=== PATIENT | female | born 1965 | race Caucasian/White ===

== ENCOUNTER → 2016-05-11 | Outpatient (CLI) | payer OTHER ==
[~2016-05-11] MED LIST: /ARTH50TA PO; /OMEP10CA OR; ALBUTEROL INH; AMBI10TA OR; AMBI12.52 PO; AMBI5TAB PO; AMIT75TA2 OR; ARTHROTEC OR; ARTHROTEC PO; ARTHTAB4 PO; AVINZA OR; BACL10TA2 PO; BENA25CA PO; BENA25CA2 PO; CLARITAN D OR; COMBVENT INH; FAMO40TA3 PO; GABA250S PO; HYDR-3363 PO; HYDR-3719 PO; HYDR25TA6 OR; HYDR7.5T38 PO; IMIT4KIT2 SC; IMIT6INJ IJ; IMIT6INJ IM; LIDO5DIS; LIDO5DIS EXT; LYRI150C OR; MORP1CAP PO; MORP30TASA PO; MS C60TA2 PO; MULTCAP PO; NEUR300C OR; NEUR300C PO; NORCO 5/325MG TABLET (BULK) As Ordered ONE; OXYC-208 PO; OXYC30TA84 PO; PEPC20TA2; PRIL20CA OR; ROBA750T4 PO; SKEL800T5; SKEL800T5 OR; SPIRIVA INHALER INH; SUMA25TA3 PO; TIZA4TAB3 PO; VARE05TA; VARE1TA OR; VARE1TA PO; VICO5TAB OR; VICO5TAB PO; VICODINES TAB OR; VOLT1GEL EXT; ZANT150T OR; [UNRECOGNIZED DRUG - CODE] PO; [UNRECOGNIZED DRUG - CODE] PO
--- NOTE | 2016-05-12 00:29 | ECWPNPC ---
PATIENT NAME: DAGO ASH : 1965 GENDER: FEMALE VISIT DATE: 05/11/2016 DISCHARGE DATE: 05/11/16927 VISIT LOCKED DATE TIME: PHYSICIAN: SHIRLEY LILLY RESOURCE: SHIRLEY LILLY REASON FOR APPOINTMENT 1. WC, BACK HISTORY OF PRESENT ILLNESS HISTORY OF PRESENT ILLNESS: PAIN THE PATIENT DESCRIBES THE PAIN... THE PATIENT DESCRIBES THE PAIN... THE PATIENT DESCRIBES THE PAIN... HERE FOR 3MOS F/U. RATING PAIN VAS 7/10.PAIN IS LOCATED ACROSS LOW BACK AND RADIATES DOWN LEFT LEG.FINDS MEDICATION EFFECTIVE AT REDUCING PAIN AND KEEPING HER COMFORTABLE.DENIES SIDE EFFECTS.DESCRIBES PAIN ASCONSTANT LBP WITH INTERMITTENT SHOOTING LEFT LEG PAIN. FALL RISK SCREENING: SCREENING :NO FALLS IN THE PAST YEAR CURRENT MEDICATIONS TAKING ZOLPIDEM TARTRATE 10 MG TABLET 1 TABLET AT BEDTIME ORALLY ONCE A DAY, MDD 1 TAKING LYRICA 150 MG CAPSULE 1 CAPSULE ORALLY Q8H MDD3 TAKING DICLOFENAC-MISOPROSTOL 75-0.2 MG TABLET DELAYED RELEASE 1 TABLET ORALLY TWICE A DAY TAKING AMITRIPTYLINE HCL 75 MG TABLET 1 TABLET ORALLY QHS TAKING METHOCARBAMOL 750 MG TABLET 1 TABLET ORALLY EVERY 8 HRS TAKING HYDROCODONE-ACETAMINOPHEN 10-325 MG TABLET 1 ORALLY Q6H MDD4 TAKING MORPHINE SULFATE ER 60 MG TABLET EXTENDED RELEASE 1 TABLET ORALLY 1 QD MDD1 NOT-TAKING MS CONTIN 60 MG TABLET EXTENDED RELEASE 1 TABLET ORALLY DAILY MDD1 NOT-TAKING MS CONTIN 60 MG TABLET EXTENDED RELEASE 1 TABLET ORALLY DAILY MDD1 NOT-TAKING MS CONTIN 60 MG TABLET EXTENDED RELEASE 1 TABLET ORALLY QD MDD1 NOT-TAKING AMBIEN 10 MG TABLET 1 TABLET AT BEDTIME NEEDED ORALLY ONCE A DAY PRN MDD1 NOT-TAKING MS CONTIN 60 MG TABLET EXTENDED RELEASE 1 TABLET ORALLY DAILY MDD1 NOT-TAKING MS CONTIN 60 MG TABLET EXTENDED RELEASE 1 TABLET ORALLY ONE DAILY MDD1 MEDICATION LIST REVIEWED AND RECONCILED WITH THE PATIENT PAST MEDICAL HISTORY SEIZURE MIGRAINE FIBROMYALGIA ALLERGIES KEFLEX: RASH: ALLERGY NYSTATIN: RASH: ALLERGY MYSOLINE: RASH: ALLERGY LATEX (FOR ALLERGY USE ONLY): RASH: ALLERGY BEE STINGS: ANAPHYLAXIS: ALLERGY ZOLOFT: RASH: ALLERGY SOCIAL HISTORY TOBACCO USE ARE YOU A:CURRENT SMOKER LEARNING BARRIERS / SPECIAL NEEDS ORIENTED TO PLAN OF CARE: PATIENT, PAIN MANAGEMENT PATIENT, ORIENTED TO PLAN OF CARE: PATIENT, PAIN MANAGEMENT PATIENT. NEW PATIENT PAIN DIARY TODAY'S VISITNOTES FROM 0-10, WHAT LEVEL IS YOUR PAIN TODAY?0 PAIN CLINIC PFS, CLERGY, PUBLIC HEALTH REFERRALS PFS REFERRAL NEEDED?NO CLERGY REFERRAL NEEDED?NO PUBLIC HEALTH REFERRAL NEEDED?NO WAS THE PROVIDER NOTIFIED OF ANY PERTINENT INFO?NO PFS REFERRAL NEEDED?NO CLERGY REFERRAL NEEDED?NO PUBLIC HEALTH REFERRAL NEEDED?NO WAS THE PROVIDER NOTIFIED OF ANY PERTINENT INFO?NO REVIEW OF SYSTEMS CONSTITUTIONAL: ANY CHANGE IN YOUR MEDICAL CONDITION? NO . CHILLS NO . FEVER NO . INFECTION: DO YOU HAVE NEW INFECTIONS? NO . DO YOU HAVE HISTORY OF MRSA? NO . MUSCULOSKELETAL: ANY NEW PATTERNS OF PAIN OR NUMBNESS? NO . GASTROENTEROLOGY: ANY NEW CHANGE IN BOWEL CONTROL? NO . GENITOURINARY: ANY NEW CHANGE IN BLADDER CONTROL? NO . IS THERE A CHANCE YOU COULD BE ? NO . HEMATOLOGY/LYMPH: DO YOU TAKE ANY BLOOD THINNERS? (FOR EXAMPLE- COUMADIN, PLAVIX, AGGRENOX, PLATEL, PRADAXA, OR XARELTO) NO . WHEN WAS YOUR LAST DOSE? DATE: TIME: . NEUROLOGY: HAVE YOU FALLEN IN THE PAST 6 MONTHS? NO . ANY NEW EXTREMITY NUMBNESS OR WEAKNESS? NO . CARDIOLOGY: DO YOU HAVE A PACEMAKER OR DEFIBRILLATOR? NO . RESPIRATORY: HAVE YOU BEEN SICK IN THE PAST WEEK? NO . FEVER NO . FLU LIKE SYMPTOMS? NO . COUGH NO . INTEGUMENTARY: DO YOU HAVE ANY RASHES OR OPEN SORES? NO . ALLERGIC/IMMUNO: ARE YOU ALLERGIC TO SHELLFISH OR IV DYE? NO . ANY NEW ALLERGIES? NO . PSYCHIATRIC: DO YOU HAVE THOUGHTS OF HURTING YOURSELF OR SOMEONE ELSE? NO . ARE YOU ABUSED, NEGLECTED, OR IN AN UNSAFE ENVIRONMENT? NO . ENDOCRINOLOGY: ARE YOU DIABETIC? NO . OTHER: DO YOU NEED ANY PRESCRIPTIONS? YES . IF YES, PLEASE LIST: MORPHINE ER AND HYDROCODONE . ANY NEW PROBLEMS WITH YOUR MEDICATIONS? NO . WHEN DID YOU LAST EAT? ____ . WHEN DID YOU LAST DRINK? ____ . WHAT DID YOU LAST DRINK? ____ . NAME OF PERSON DRIVING YOU HOME? ____ . DO YOU HAVE ANY OTHER QUESTIONS OR CONCERNS NO . REVIEWED BY: PROVIDER: SHIRLEY HUBBARD . VITAL SIGNS WT 177 LBS, HT 53 IN, BMI 44.30 INDEX, BP 164/100 MM HG, HR 66 /MIN, RR 18 /MIN, TEMP 98.0 F, OXYGEN SAT % 100%, REVIEWED BY: [id number]. EXAMINATION GENERAL EXAMINATION: LUNGS:LUNG SOUNDS ARE CLEAR. HEART:HEART RATE REGULAR. MUSCULOSKELETAL:*, MUSCLE STRENGTH TESTING 5/5 BILATERAL, PALPATION: POSITIVE FOR PAIN OVER L/S SPINE,.+ FOR PAIN OVER L/S PARSPINALS, TRIGGER POINTS:, ELICITED WITH PALPATION OVER LUMBAR PARAVERTEBRAL MUSCLES . RESTRICTION OF ROM IN THIS AREA. ASSESSMENTS PROTRUSION OF INTERVERTEBRAL DISC OF LUMBOSACRAL REGION - M51.27 (PRIMARY) CHRONIC PRESCRIPTION OPIATE USE - Z79.891 TREATMENT PROTRUSION OF INTERVERTEBRAL DISC OF LUMBOSACRAL REGION CONTINUE ZOLPIDEM TARTRATE TABLET, 10 MG, 1 TABLET AT BEDTIME, ORALLY, ONCE A DAY, MDD 1 CONTINUE LYRICA CAPSULE, 150 MG, 1 CAPSULE, ORALLY, Q8H MDD3 CONTINUE DICLOFENAC-MISOPROSTOL TABLET DELAYED RELEASE, 75-0.2 MG, 1 TABLET, ORALLY, TWICE A DAY REFILL AMITRIPTYLINE HCL TABLET, 75 MG, 1 TABLET, ORALLY, QHS, 30 DAY(S), 30, REFILLS 5 CONTINUE METHOCARBAMOL TABLET, 750 MG, 1 TABLET, ORALLY, EVERY 8 HRS REFILL HYDROCODONE-ACETAMINOPHEN TABLET, 10-325 MG, 1, ORALLY, Q6H MDD4, 1 MONTH, 120, REFILLS 0 REFILL MORPHINE SULFATE ER TABLET EXTENDED RELEASE, 60 MG, 1 TABLET, ORALLY, 1 QD MDD1, 1 MONTH, 30, REFILLS 0 PROCEDURES PN WORKMANS' COMP OPINION IN YOUR OPINION, WAS THE INCIDENT THAT THE PATIENT DESCRIBED THE COMPETENT MEDICAL CAUSE OF THIS INJURY/ILLNESS? YES ARE THE PATIENT'S COMPLAINTS CONSISTENT WITH HIS/HER HISTORY OF THE INJURY/ILLNESS? YES IS THE PATIENT'S HISTORY OF THE INJURY/ILLNESS CONSISTENT WITH YOUR OBJECTIVE FINDING? YES WHAT IS THE PERCENTAGE OF TEMPORARY IMPAIRMENT? MODERATE TO MARKED = 66.7% IS THE PATIENT WORKING? NO DOCTOR ON SITE: HOWARD VENEGAS MD PROCEDURE CODES FA211 ESTABILISHED PATIENT [facility] FACILITY CHARGE FOLLOW UP 3 MONTHS ELECTRONICALLY SIGNED BY HAYDEE CHOWDHURY ON 05/11/2016 AT 11:20 AM EST DISCLAIMER : THIS IS A VISIT SUMMARY EXTRACTED FROM THE [employer] CHART. IT IS NOT A COPY OF THE [employer] PROGRESS NOTE. BRADLEY
== END ==
LOC: M PAIN 09:20
PROVIDERS: ATTEND Nurse Practitioner Family
DX: Z09 Encounter for follow-up examination after completed treatment for conditions other than malignant neoplasm (principal); G89.21 Chronic pain due to trauma; M51.27 Other intervertebral disc displacement, lumbosacral region; G40.919 Epilepsy, unspecified, intractable, without status epilepticus; G43.909 Migraine, unspecified, not intractable, without status migrainosus; M79.7 Fibromyalgia; Z88.8 Allergy status to other drugs, medicaments and biological substances; Z91.040 Latex allergy status; Z91.030 Bee allergy status; Z79.891 Long term (current) use of opiate analgesic; Z79.899 Other long term (current) drug therapy

== ENCOUNTER → 2016-08-09 | Outpatient (CLI) | payer OTHER ==
[~2016-08-09] MED LIST changes: -NORCO 5/325MG TABLET (BULK) As Ordered ONE
== END ==
LOC: M PAIN 08:40
PROVIDERS: ATTEND Nurse Practitioner Family
DX: Z09 Encounter for follow-up examination after completed treatment for conditions other than malignant neoplasm (principal); G89.29 Other chronic pain; M51.27 Other intervertebral disc displacement, lumbosacral region; G40.909 Epilepsy, unspecified, not intractable, without status epilepticus; G43.909 Migraine, unspecified, not intractable, without status migrainosus; M79.7 Fibromyalgia; Z91.040 Latex allergy status; Z91.030 Bee allergy status; Z88.8 Allergy status to other drugs, medicaments and biological substances; Z79.891 Long term (current) use of opiate analgesic; Z79.899 Other long term (current) drug therapy

== ENCOUNTER → 2016-09-08 | Outpatient (CLI) | payer OTHER ==
--- NOTE | 2016-09-22 00:37 | ECWPNPC ---
PATIENT NAME: DAGO ASH : 1965 GENDER: FEMALE VISIT DATE: 09/08/2016 DISCHARGE DATE: 09/08/16 1500 VISIT LOCKED DATE TIME: PHYSICIAN: HOWARD IZQUIERDO RESOURCE: HOWARD IZQUIERDO REASON FOR APPOINTMENT 1. WC, BACK HISTORY OF PRESENT ILLNESS HISTORY OF PRESENT ILLNESS: PAIN THE PATIENT DESCRIBES THE PAIN... 50 YEAR OLD FEMALE PATIENT WITH HISTORY OF CHRONIC LOW BACK PAIN. PATIENT DESCRIBES THE PAIN ACHING, BURNING, IT COMES AND GOES, AND HAVING IT ALL THE TIME WITH A PAIN SCORE OF 7/10 ON TODAY'S VISIT. 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 PATIENT WAS ASSISTING TO HELP A PATIENT OFF THE FLOOR INJURING HER BACK. PATIENT REPORTS THAT SHE HAS TRIED PHYSICAL THERAPY IN THE PAST AND IT DID NOT HELP WITH THE PAIN. PATIENT DENIES HAVING ANY BACK SURGERY. PATIENT REPORTS THAT SHE IS USING A TENS UNIT AT HOME AND IT HELPS WITH THE PAIN SOME. PATIENT REPORTS OF RADIATING PAIN DOWN THE LEFT LEG FROM HER BACK. PATIENT DENIES UNEXPLAINABLE WEIGHT LOSS, FEVER, CHILLS, NEW CHANGES ON HER URINARY OR BOWEL CONTROL. FALL RISK SCREENING: SCREENING :NO FALLS IN THE PAST YEAR CURRENT MEDICATIONS TAKING LYRICA 150 MG CAPSULE 1 CAPSULE ORALLY Q8H MDD3 TAKING DICLOFENAC-MISOPROSTOL 75-0.2 MG TABLET DELAYED RELEASE 1 TABLET ORALLY TWICE A DAY TAKING AMITRIPTYLINE HCL 75 MG TABLET 1 TABLET ORALLY QHS TAKING AMBIEN 10 MG TABLET 1 TABLET AT BEDTIME NEEDED ORALLY ONCE A DAY PRN MDD1 TAKING HYDROCODONE-ACETAMINOPHEN 10-325 MG TABLET 1 ORALLY Q6H MDD4 TAKING MORPHINE SULFATE ER 60 MG TABLET EXTENDED RELEASE 1 TABLET ORALLY 1 QD MDD1 TAKING METHOCARBAMOL 750 MG TABLET 1 TABLET ORALLY EVERY 8 HRS NOT-TAKING ZOLPIDEM TARTRATE 10 MG TABLET 1 TABLET AT BEDTIME ORALLY ONCE A DAY, MDD 1 NOT-TAKING MS CONTIN 60 MG TABLET EXTENDED RELEASE 1 TABLET ORALLY DAILY MDD1 NOT-TAKING MS CONTIN 60 MG TABLET EXTENDED RELEASE 1 TABLET ORALLY DAILY MDD1 NOT-TAKING MS CONTIN 60 MG TABLET EXTENDED RELEASE 1 TABLET ORALLY QD MDD1 NOT-TAKING MS CONTIN 60 MG TABLET EXTENDED RELEASE 1 TABLET ORALLY DAILY MDD1 NOT-TAKING MS CONTIN 60 MG TABLET EXTENDED RELEASE 1 TABLET ORALLY ONE DAILY MDD1 MEDICATION LIST REVIEWED AND RECONCILED WITH THE PATIENT PAST MEDICAL HISTORY SEIZURE MIGRAINE FIBROMYALGIA ALLERGIES KEFLEX: RASH: ALLERGY NYSTATIN: RASH: ALLERGY MYSOLINE: RASH: ALLERGY LATEX (FOR ALLERGY USE ONLY): RASH: ALLERGY BEE STINGS: ANAPHYLAXIS: ALLERGY ZOLOFT: RASH: ALLERGY SURGICAL HISTORY 10/1989 GALL BLADDER REMOVED 2006 BLADDER SLING 2008 FAMILY HISTORY NO FAMILY HISTORY DOCUMENTED. SOCIAL HISTORY GENERAL: TOBACCO USE ARE YOU A:CURRENT SMOKER HOW MANY CIGARETTES A DAY DO YOU SMOKE?31 OR MORE PATIENT COUNSELED ON THE DANGERS OF TOBACCO USE AND URGED TO QUIT:08/04/2015 ARE YOU INTERESTED IN QUITTING?THINKING ABOUT QUITTING COUNSELED THE PATIENT ON SMOKING CESSATION, EDUCATION [id number]/05/2016 SMOKING CESSATION INFORMATION GIVEN08/04/2015 CAFFEINE CAFFEINE USE?NO HOSPITALIZATION/MAJOR DIAGNOSTIC PROCEDURE NO HOSPITALIZATION HISTORY. REVIEW OF SYSTEMS CONSTITUTIONAL: ANY CHANGE IN YOUR MEDICAL CONDITION? NO . CHILLS NO . FEVER NO . INFECTION: DO YOU HAVE NEW INFECTIONS? NO . DO YOU HAVE HISTORY OF MRSA? NO . MUSCULOSKELETAL: ANY NEW PATTERNS OF PAIN OR NUMBNESS? NO . GASTROENTEROLOGY: ANY NEW CHANGE IN BOWEL CONTROL? NO . GENITOURINARY: ANY NEW CHANGE IN BLADDER CONTROL? NO . IS THERE A CHANCE YOU COULD BE ? NO . HEMATOLOGY/LYMPH: DO YOU TAKE ANY BLOOD THINNERS? (FOR EXAMPLE- COUMADIN, PLAVIX, AGGRENOX, PLATEL, PRADAXA, OR XARELTO) NO . WHEN WAS YOUR LAST DOSE? DATE: TIME: . NEUROLOGY: HAVE YOU FALLEN IN THE PAST 6 MONTHS? NO . ANY NEW EXTREMITY NUMBNESS OR WEAKNESS? NO . CARDIOLOGY: DO YOU HAVE A PACEMAKER OR DEFIBRILLATOR? NO . RESPIRATORY: HAVE YOU BEEN SICK IN THE PAST WEEK? NO . FEVER NO . FLU LIKE SYMPTOMS? NO . COUGH NO . INTEGUMENTARY: DO YOU HAVE ANY RASHES OR OPEN SORES? NO . ALLERGIC/IMMUNO: ARE YOU ALLERGIC TO SHELLFISH OR IV DYE? NO . ANY NEW ALLERGIES? NO . PSYCHIATRIC: DO YOU HAVE THOUGHTS OF HURTING YOURSELF OR SOMEONE ELSE? NO . ARE YOU ABUSED, NEGLECTED, OR IN AN UNSAFE ENVIRONMENT? NO . ENDOCRINOLOGY: ARE YOU DIABETIC? NO . OTHER: DO YOU NEED ANY PRESCRIPTIONS? YES . IF YES, PLEASE LIST: __HYDROCODONE, MORPHINE ER__ . ANY NEW PROBLEMS WITH YOUR MEDICATIONS? NO . WHEN DID YOU LAST EAT? ____ . WHEN DID YOU LAST DRINK? ____ . WHAT DID YOU LAST DRINK? ____ . NAME OF PERSON DRIVING YOU HOME? ____ . DO YOU HAVE ANY OTHER QUESTIONS OR CONCERNS NO . REVIEWED BY: PROVIDER: HOWARD IZQUIERDO MD . VITAL SIGNS WT 176.4 LBS, HT 53 IN, BMI 44.15 INDEX, BP 145/78 MM HG, HR 88 /MIN, RR 16 /MIN, TEMP 97.6 F, OXYGEN SAT % 91%, NA INITIALS SC 13:15. EXAMINATION : PATIENT IS ALERT O X 3 AND COOPERATIVE. PATIENT AMBULATES WITH A LIMP ON TH LEFT LEG. PATIENT'S LEFT LEG IS WEAKER AT FLEXION AND EXTENSION COMPARED TO THE RIGHT LEG. THERE IS TENDERNESS IN THE LOW BACK PARASPINAL MUSCLE GROUP. MRI OF THE LUMBAR SPINE DONE ON 11/29/2005 SHOWS A DISC PROTRUSION AT L4-L5 AND AT L5-S1. ASSESSMENTS PROTRUSION OF INTERVERTEBRAL DISC OF LUMBOSACRAL REGION - M51.27 (PRIMARY) LOW BACK PAIN - M54.5 INTERVERTEBRAL DISC DISORDERS WITH RADICULOPATHY, LUMBAR REGION - M51.16 INTERVERTEBRAL DISC DISORDERS WITH RADICULOPATHY, LUMBOSACRAL REGION - M51.17 TREATMENT PROTRUSION OF INTERVERTEBRAL DISC OF LUMBOSACRAL REGION REFILL MORPHINE SULFATE ER TABLET EXTENDED RELEASE, 60 MG, 1 TABLET, ORALLY, 1 QD MDD1, 1 MONTH, 30, REFILLS 0 REFILL HYDROCODONE-ACETAMINOPHEN TABLET, 10-325 MG, 1, ORALLY, Q6H MDD4, 1 MONTH, 115, REFILLS 0 NOTES: WE DISCUSSED SEVERAL ISSUES WITH MS. ASH'S PAIN MANAGEMENT CASE. AT THIS TIME I WILL REFILL MORPHINE AND HYDROCODONE FOR THE PATIENT TODAY. PATIENT IS TAKING THESE MEDICATION FOR SOMATIC PAIN AND THEY ALLOW THE PATIENT TO BE MORE MOBILE AND FUNCTIONAL. PATIENT IS TAKING AMITRIPTYLINE AND LYRICA FOR NEUROPATHIC PAIN. I WILL HAVE THE PATIENT STOP DICLOFENAC TO GIVE HER BODY A BREAK. I DISCUSSED WITH THE PATIENT THAT TAKING ANTI-INFLAMMATORY MEDICATION INCREASE THE RISK OF CARDIAC EVENTS AND STOMACH PROBLEMS. UTOX DONE ON SHOWS CONSISTENT RESULTS. PATIENT WILL FOLLOW UP WITH ME IN 6 WEEKS. PROCEDURES PN WORKMANS' COMP OPINION IN YOUR OPINION, WAS THE INCIDENT THAT THE PATIENT DESCRIBED THE COMPETENT MEDICAL CAUSE OF THIS INJURY/ILLNESS? YES ARE THE PATIENT'S COMPLAINTS CONSISTENT WITH HIS/HER HISTORY OF THE INJURY/ILLNESS? YES IS THE PATIENT'S HISTORY OF THE INJURY/ILLNESS CONSISTENT WITH YOUR OBJECTIVE FINDING? YES WHAT IS THE PERCENTAGE OF TEMPORARY IMPAIRMENT? MODERATE TO MARKED = 66.7% IS THE PATIENT WORKING? NO DOCTOR ON SITE: HOWARD VENEGAS MD PROCEDURE CODES FA211 ESTABILISHED PATIENT [facility] FACILITY CHARGE G8427 DOC MEDS VERIFIED W/PT OR RE G8730 PAIN ASSESS POS TOOL F/U PLAN DOC DISPOSITION & COMMUNICATION FOLLOW UP 6 WEEKS ELECTRONICALLY SIGNED BY HOWARD IZQUIERDO MD ON 09/20/2016 AT 06:03 PM EDT DISCLAIMER : THIS IS A VISIT SUMMARY EXTRACTED FROM THE [email or web address] CHART. IT IS NOT A COPY OF THE [employer] PROGRESS NOTE. BRADLEY
== END ==
LOC: M PAIN 13:20
PROVIDERS: ATTEND Anesthesiology
DX: G89.29 Other chronic pain (principal); M51.27 Other intervertebral disc displacement, lumbosacral region; M51.16 Intervertebral disc disorders with radiculopathy, lumbar region; M51.17 Intervertebral disc disorders with radiculopathy, lumbosacral region; R56.9 Unspecified convulsions; G43.909 Migraine, unspecified, not intractable, without status migrainosus; M79.7 Fibromyalgia; F17.210 Nicotine dependence, cigarettes, uncomplicated; Z91.040 Latex allergy status; Z91.030 Bee allergy status; Z88.8 Allergy status to other drugs, medicaments and biological substances; Z79.891 Long term (current) use of opiate analgesic; Z79.899 Other long term (current) drug therapy

== ENCOUNTER → 2016-10-18 | Outpatient (CLI) | payer OTHER ==
[~2016-10-18] MED LIST changes: +MS C PO; -MS C60TA2 PO
--- NOTE | 2016-11-01 23:10 | ECWPNPC ---
PATIENT NAME: DAGO ASH : 1965 GENDER: FEMALE VISIT DATE: 10/18/2016 DISCHARGE DATE: 10/18/16 1550 VISIT LOCKED DATE TIME: PHYSICIAN: HOWARD IZQUIERDO RESOURCE: HOWARD IZQUIERDO REASON FOR APPOINTMENT 1. W/C BACK PAIN HISTORY OF PRESENT ILLNESS HISTORY OF PRESENT ILLNESS: PAIN THE PATIENT DESCRIBES THE PAIN... 50 YEAR OLD FEMALE PATIENT WITH HISTORY OF CHRONIC LOW BACK PAIN. PATIENT DESCRIBES THE PAIN SHARP AND HAVING IT ALL THE TIME WITH A PAIN SCORE OF 8/10 ON TODAY'S VISIT. 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 PATIENT WAS ASSISTING TO HELP A PATIENT OFF THE FLOOR INJURING HER BACK. PATIENT REPORTS THAT SHE HAS TRIED PHYSICAL THERAPY IN THE PAST AND IT DID NOT HELP WITH THE PAIN. PATIENT DENIES HAVING ANY BACK SURGERY. PATIENT REPORTS THAT SHE IS USING A TENS UNIT AT HOME AND IT HELPS WITH THE PAIN SOME. PATIENT REPORTS OF RADIATING PAIN DOWN THE LEFT LEG FROM HER BACK. PATIENT DENIES UNEXPLAINABLE WEIGHT LOSS, FEVER, CHILLS, NEW CHANGES ON HER URINARY OR BOWEL CONTROL. FALL RISK SCREENING: SCREENING :NO FALLS IN THE PAST YEAR CURRENT MEDICATIONS TAKING LYRICA 150 MG CAPSULE 1 CAPSULE ORALLY Q8H MDD3 TAKING AMITRIPTYLINE HCL 75 MG TABLET 1 TABLET ORALLY QHS TAKING AMBIEN 10 MG TABLET 1 TABLET AT BEDTIME NEEDED ORALLY ONCE A DAY PRN MDD1 TAKING METHOCARBAMOL 750 MG TABLET 1 TABLET ORALLY EVERY 8 HRS TAKING MORPHINE SULFATE ER 60 MG TABLET EXTENDED RELEASE 1 TABLET ORALLY ONCE A DAY TAKING HYDROCODONE-ACETAMINOPHEN 10-325 MG TABLET 1 ORALLY EVERY 6 HRS NEEDED MAXIMUM 4 PER DAY NOT-TAKING DICLOFENAC-MISOPROSTOL 75-0.2 MG TABLET DELAYED RELEASE 1 TABLET ORALLY TWICE A DAY NOT-TAKING ZOLPIDEM TARTRATE 10 MG TABLET 1 TABLET AT BEDTIME ORALLY ONCE A DAY, MDD 1 NOT-TAKING MS CONTIN 60 MG TABLET EXTENDED RELEASE 1 TABLET ORALLY DAILY MDD1 NOT-TAKING MS CONTIN 60 MG TABLET EXTENDED RELEASE 1 TABLET ORALLY DAILY MDD1 NOT-TAKING MS CONTIN 60 MG TABLET EXTENDED RELEASE 1 TABLET ORALLY QD MDD1 NOT-TAKING MS CONTIN 60 MG TABLET EXTENDED RELEASE 1 TABLET ORALLY DAILY MDD1 NOT-TAKING MS CONTIN 60 MG TABLET EXTENDED RELEASE 1 TABLET ORALLY ONE DAILY MDD1 MEDICATION LIST REVIEWED AND RECONCILED WITH THE PATIENT PAST MEDICAL HISTORY SEIZURE MIGRAINE FIBROMYALGIA ALLERGIES KEFLEX: RASH: ALLERGY NYSTATIN: RASH: ALLERGY MYSOLINE: RASH: ALLERGY LATEX (FOR ALLERGY USE ONLY): RASH: ALLERGY BEE STINGS: ANAPHYLAXIS: ALLERGY ZOLOFT: RASH: ALLERGY SURGICAL HISTORY 10/1989 GALL BLADDER REMOVED 2006 BLADDER SLING 2008 SOCIAL HISTORY GENERAL: TOBACCO USE ARE YOU A:CURRENT SMOKER HOW MANY CIGARETTES A DAY DO YOU SMOKE?31 OR MORE PATIENT COUNSELED ON THE DANGERS OF TOBACCO USE AND URGED TO QUIT:08/04/2015 ARE YOU INTERESTED IN QUITTING?THINKING ABOUT QUITTING COUNSELED THE PATIENT ON SMOKING CESSATION, EDUCATION [id number]/05/2016 SMOKING CESSATION INFORMATION GIVEN08/04/2015 CAFFEINE CAFFEINE USE?NO HOSPITALIZATION/MAJOR DIAGNOSTIC PROCEDURE SURGERIES REVIEW OF SYSTEMS REVIEWED BY: PROVIDER: . CONSTITUTIONAL: ANY CHANGE IN YOUR MEDICAL CONDITION? NO . CHILLS NO . FEVER NO . INFECTION: DO YOU HAVE NEW INFECTIONS? NO . DO YOU HAVE HISTORY OF MRSA? NO . MUSCULOSKELETAL: ANY NEW PATTERNS OF PAIN OR NUMBNESS? NO . GASTROENTEROLOGY: ANY NEW CHANGE IN BOWEL CONTROL? NO . GENITOURINARY: ANY NEW CHANGE IN BLADDER CONTROL? NO . IS THERE A CHANCE YOU COULD BE ? NO . HEMATOLOGY/LYMPH: DO YOU TAKE ANY BLOOD THINNERS? (FOR EXAMPLE- COUMADIN, PLAVIX, AGGRENOX, PLATEL, PRADAXA, OR XARELTO) NO . WHEN WAS YOUR LAST DOSE? DATE: TIME: . NEUROLOGY: HAVE YOU FALLEN IN THE PAST 6 MONTHS? NO . ANY NEW EXTREMITY NUMBNESS OR WEAKNESS? NO . CARDIOLOGY: DO YOU HAVE A PACEMAKER OR DEFIBRILLATOR? NO . RESPIRATORY: HAVE YOU BEEN SICK IN THE PAST WEEK? NO . FEVER NO . FLU LIKE SYMPTOMS? NO . COUGH NO . INTEGUMENTARY: DO YOU HAVE ANY RASHES OR OPEN SORES? NO . ALLERGIC/IMMUNO: ARE YOU ALLERGIC TO SHELLFISH OR IV DYE? NO . ANY NEW ALLERGIES? NO . PSYCHIATRIC: DO YOU HAVE THOUGHTS OF HURTING YOURSELF OR SOMEONE ELSE? NO . ARE YOU ABUSED, NEGLECTED, OR IN AN UNSAFE ENVIRONMENT? NO . ENDOCRINOLOGY: ARE YOU DIABETIC? NO . OTHER: DO YOU NEED ANY PRESCRIPTIONS? YES . IF YES, PLEASE LIST: MORPHINE ER AND LYRICA, WILL NEED HYDROCODONE AFTER NEXT WEEK . ANY NEW PROBLEMS WITH YOUR MEDICATIONS? NO . WHEN DID YOU LAST EAT? ____ . WHEN DID YOU LAST DRINK? ____ . WHAT DID YOU LAST DRINK? ____ . NAME OF PERSON DRIVING YOU HOME? ____ . DO YOU HAVE ANY OTHER QUESTIONS OR CONCERNS NO . VITAL SIGNS WT 171.4 LBS, HT 53 IN, BMI 42.90 INDEX, BP 162/86 MM HG, HR 65 /MIN, RR 16 /MIN, TEMP 98.2 F, OXYGEN SAT % 98%, NA INITIALS SC 14:06, REVIEWED BY: ANDI. EXAMINATION : PATIENT IS ALERT O X 3 AND COOPERATIVE. PATIENT AMBULATES WITH A LIMP ON TH LEFT LEG. PATIENT ABLE TO FLEX 45 DEGREES AND EXTEND 5 DEGREES WITH DIFFICULTIES. PATIENT'S LEFT LEG IS WEAKER AT FLEXION AND EXTENSION COMPARED TO THE RIGHT LEG. THERE IS TENDERNESS IN THE LOW BACK PARASPINAL MUSCLE GROUP. MRI OF THE LUMBAR SPINE DONE ON 11/29/2005 SHOWS A DISC PROTRUSION AT L4-L5 AND AT L5-S1. 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 DISC DISORDERS WITH RADICULOPATHY, LUMBOSACRAL REGION - M51.17 LOW BACK PAIN - M54.5 TREATMENT PROTRUSION OF INTERVERTEBRAL DISC OF LUMBOSACRAL REGION REFILL HYDROCODONE-ACETAMINOPHEN TABLET, 10-325 MG, 1, ORALLY, EVERY 6 HRS NEEDED MAXIMUM 4 PER DAY, 30 DAYS, 120, REFILLS 0 REFILL MORPHINE SULFATE ER TABLET EXTENDED RELEASE, 60 MG, 1 TABLET, ORALLY, ONCE A DAY FOR PAIN, 30 DAY(S), 30, REFILLS 0 REFILL LYRICA CAPSULE, 150 MG, 1 CAPSULE, ORALLY, Q8H MDD3, 30 DAY(S), 90, REFILLS 1 REFILL AMITRIPTYLINE HCL TABLET, 75 MG, 1 TABLET, ORALLY, QHS, 30 DAY(S), 30, REFILLS 1 REFILL METHOCARBAMOL TABLET, 750 MG, 1 TABLET, ORALLY, EVERY 8 HRS NEEDED FOR SPASMS AND PAIN MDD3, 30 DAY(S), 90, REFILLS 1 NOTES: WE DISCUSSED SEVERAL ISSUES WITH MRS. ASH'S PAIN MANAGEMENT CASE. AT THIS TIME THE PATIENT WILL CONTINUE WITH THE SAME MEDICATION REGIME BEFORE. PATIENT IS USING THE HYDROCODONE AND MORPHINE FOR THE SOMATIC PAIN, LYRICA AND AMITRIPTYLINE FOR THE NEUROPATHIC PAIN AND METHOCARBAMOL FOR THE MUSCLE SPASMS. PATIENT DENIES ABUSE TO ANY MEDICATION, DENIES US OF ILLEGAL SUBSTANCES AND STATES SHE IS ONLY USING THE MEDICATION FOR PAIN MANAGEMENT. URINE TOXICOLOGY REPORT DONE ON 08/09/16 SHOWS CONSISTENT RESULTS WIT THE PATIENTS MEDICATION LIST. PATIENT WAS ADVISED TO BRING ALL MEDICATIONS TO EVERY VISIT. PATIENT STATES SHE IS UNABLE TO DECREASE HER MEDICATION AND IF SHE DOES SHE WILL NOT BE ABLE TO FUNCTION. I WOULD LIKE THE PATIENT TO RECEIVE A NEW LUMBAR MRI DUE TO THE WEAKENED LEG. PATIENT WILL RETURN TO THE CLINIC AFTER THE MRI TO DISCUSS RESULTS. INSTRUCTIONS WERE GIVEN, QUESTIONS WERE ANSWERED, PATIENT REPORTS UNDERSTANDING AND AGREES WITH THE PLAN. I, GAIL HIRSCH, DOCUMENTED THE ABOVE INFORMATION ACTING A SCRIBE FOR DR. IZQUIERDO. I HAVE REVIEWED THE ABOVE DOCUMENT, WRITTEN BY GAIL GARNER AND I VERIFY THAT IT IS ACCURATE. PROCEDURES PN WORKMANS' COMP OPINION IN YOUR OPINION, WAS THE INCIDENT THAT THE PATIENT DESCRIBED THE COMPETENT MEDICAL CAUSE OF THIS INJURY/ILLNESS? YES ARE THE PATIENT'S COMPLAINTS CONSISTENT WITH HIS/HER HISTORY OF THE INJURY/ILLNESS? YES IS THE PATIENT'S HISTORY OF THE INJURY/ILLNESS CONSISTENT WITH YOUR OBJECTIVE FINDING? YES WHAT IS THE PERCENTAGE OF TEMPORARY IMPAIRMENT? MODERATE TO MARKED = 66.7% IS THE PATIENT WORKING? NO DOCTOR ON SITE: HOWARD VENEGAS MD PROCEDURE CODES FA211 ESTABILISHED PATIENT [facility] FACILITY CHARGE G8427 DOC MEDS VERIFIED W/PT OR RE G8730 PAIN ASSESS POS TOOL F/U PLAN DOC DISPOSITION & COMMUNICATION FOLLOW UP 3 WEEKS ELECTRONICALLY SIGNED BY HOWARD IZQUIERDO MD ON 11/01/2016 AT 09:43 PM EDT DISCLAIMER : THIS IS A VISIT SUMMARY EXTRACTED FROM THE [employer] CHART. IT IS NOT A COPY OF THE [employer] PROGRESS NOTE. BRADLEY
== END ==
LOC: M PAIN 14:00
PROVIDERS: ATTEND Anesthesiology
DX: G89.29 Other chronic pain (principal); M51.27 Other intervertebral disc displacement, lumbosacral region; M51.16 Intervertebral disc disorders with radiculopathy, lumbar region; M51.17 Intervertebral disc disorders with radiculopathy, lumbosacral region; G43.909 Migraine, unspecified, not intractable, without status migrainosus; M79.7 Fibromyalgia; F17.210 Nicotine dependence, cigarettes, uncomplicated; Z79.891 Long term (current) use of opiate analgesic; Z79.899 Other long term (current) drug therapy; Z88.1 Allergy status to other antibiotic agents; Z88.8 Allergy status to other drugs, medicaments and biological substances; Z91.040 Latex allergy status; Z91.030 Bee allergy status

== ENCOUNTER → 2016-11-03 | Outpatient (CLI) | payer OTHER ==
--- NOTE | 2016-11-15 00:29 | ECWPNPC ---
PATIENT NAME: DAGO ASH : 1965 GENDER: FEMALE VISIT DATE: 11/03/2016 DISCHARGE DATE: 11/03/16 1701 VISIT LOCKED DATE TIME: PHYSICIAN: HOWARD IZQUIERDO RESOURCE: HOWARD IZQUIERDO REASON FOR APPOINTMENT 1. W/C LOW BACK HISTORY OF PRESENT ILLNESS HISTORY OF PRESENT ILLNESS: PAIN THE PATIENT DESCRIBES THE PAIN... 50 YEAR OLD FEMALE PATIENT WITH HISTORY OF CHRONIC LOW BACK PAIN. PATIENT DESCRIBES THE PAIN SHARP AND HAVING IT ALL THE TIME WITH A PAIN SCORE OF 8/10 ON TODAY'S VISIT. 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 PATIENT WAS ASSISTING TO HELP A PATIENT OFF THE FLOOR INJURING HER BACK. PATIENT REPORTS THAT SHE HAS TRIED PHYSICAL THERAPY IN THE PAST AND IT DID NOT HELP WITH THE PAIN. PATIENT DENIES HAVING ANY BACK SURGERY. PATIENT REPORTS THAT SHE IS USING A TENS UNIT AT HOME AND IT HELPS WITH THE PAIN SOME. PATIENT REPORTS OF RADIATING PAIN DOWN THE LEFT LEG FROM HER BACK. PATIENT DENIES UNEXPLAINABLE WEIGHT LOSS, FEVER, CHILLS, NEW CHANGES ON HER URINARY OR BOWEL CONTROL. FALL RISK SCREENING: SCREENING :NO FALLS IN THE PAST YEAR CURRENT MEDICATIONS TAKING HYDROCODONE-ACETAMINOPHEN 10-325 MG TABLET 1 ORALLY EVERY 6 HRS NEEDED MAXIMUM 4 PER DAY TAKING MORPHINE SULFATE ER 60 MG TABLET EXTENDED RELEASE 1 TABLET ORALLY ONCE A DAY FOR PAIN TAKING LYRICA 150 MG CAPSULE 1 CAPSULE ORALLY Q8H MDD3 TAKING AMITRIPTYLINE HCL 75 MG TABLET 1 TABLET ORALLY QHS TAKING METHOCARBAMOL 750 MG TABLET 1 TABLET ORALLY EVERY 8 HRS NEEDED FOR SPASMS AND PAIN MDD3 DISCONTINUED AMBIEN 10 MG TABLET 1 TABLET AT BEDTIME NEEDED ORALLY ONCE A DAY PRN MDD1 DISCONTINUED DICLOFENAC-MISOPROSTOL 75-0.2 MG TABLET DELAYED RELEASE 1 TABLET ORALLY TWICE A DAY DISCONTINUED ZOLPIDEM TARTRATE 10 MG TABLET 1 TABLET AT BEDTIME ORALLY ONCE A DAY, MDD 1 DISCONTINUED MS CONTIN 60 MG TABLET EXTENDED RELEASE 1 TABLET ORALLY DAILY MDD1 DISCONTINUED MS CONTIN 60 MG TABLET EXTENDED RELEASE 1 TABLET ORALLY DAILY MDD1 DISCONTINUED MS CONTIN 60 MG TABLET EXTENDED RELEASE 1 TABLET ORALLY QD MDD1 DISCONTINUED MS CONTIN 60 MG TABLET EXTENDED RELEASE 1 TABLET ORALLY DAILY MDD1 DISCONTINUED MS CONTIN 60 MG TABLET EXTENDED RELEASE 1 TABLET ORALLY ONE DAILY MDD1 MEDICATION LIST REVIEWED AND RECONCILED WITH THE PATIENT PAST MEDICAL HISTORY SEIZURE MIGRAINE FIBROMYALGIA ALLERGIES KEFLEX: RASH: ALLERGY NYSTATIN: RASH: ALLERGY MYSOLINE: RASH: ALLERGY LATEX (FOR ALLERGY USE ONLY): RASH: ALLERGY BEE STINGS: ANAPHYLAXIS: ALLERGY ZOLOFT: RASH: ALLERGY REVIEW OF SYSTEMS REVIEWED BY: PROVIDER: HOWARD IZQUIERDO MD . CONSTITUTIONAL: ANY CHANGE IN YOUR MEDICAL CONDITION? NO . CHILLS NO . FEVER NO . INFECTION: DO YOU HAVE NEW INFECTIONS? NO . DO YOU HAVE HISTORY OF MRSA? NO . MUSCULOSKELETAL: ANY NEW PATTERNS OF PAIN OR NUMBNESS? NO . GASTROENTEROLOGY: ANY NEW CHANGE IN BOWEL CONTROL? NO . GENITOURINARY: ANY NEW CHANGE IN BLADDER CONTROL? NO . IS THERE A CHANCE YOU COULD BE ? NO . HEMATOLOGY/LYMPH: DO YOU TAKE ANY BLOOD THINNERS? (FOR EXAMPLE- COUMADIN, PLAVIX, AGGRENOX, PLATEL, PRADAXA, OR XARELTO) NO . WHEN WAS YOUR LAST DOSE? DATE: TIME: . NEUROLOGY: HAVE YOU FALLEN IN THE PAST 6 MONTHS? NO . ANY NEW EXTREMITY NUMBNESS OR WEAKNESS? NO . CARDIOLOGY: DO YOU HAVE A PACEMAKER OR DEFIBRILLATOR? NO . RESPIRATORY: HAVE YOU BEEN SICK IN THE PAST WEEK? NO . FEVER NO . FLU LIKE SYMPTOMS? NO . COUGH NO . INTEGUMENTARY: DO YOU HAVE ANY RASHES OR OPEN SORES? NO . ALLERGIC/IMMUNO: ARE YOU ALLERGIC TO SHELLFISH OR IV DYE? NO . ANY NEW ALLERGIES? NO . PSYCHIATRIC: DO YOU HAVE THOUGHTS OF HURTING YOURSELF OR SOMEONE ELSE? NO . ARE YOU ABUSED, NEGLECTED, OR IN AN UNSAFE ENVIRONMENT? NO . ENDOCRINOLOGY: ARE YOU DIABETIC? NO . OTHER: DO YOU NEED ANY PRESCRIPTIONS? YES . IF YES, PLEASE LIST: HYDROCODONE . ANY NEW PROBLEMS WITH YOUR MEDICATIONS? NO . WHEN DID YOU LAST EAT? ____ . WHEN DID YOU LAST DRINK? ____ . WHAT DID YOU LAST DRINK? ____ . NAME OF PERSON DRIVING YOU HOME? ____ . DO YOU HAVE ANY OTHER QUESTIONS OR CONCERNS YES, PATIENT STATES THAT SHE STILL NEEDS SOMETHING TO HELP HER SLEEP. HAS NOT HEARD FROM [place] TO HAVE MRI. . VITAL SIGNS WT 171 LBS, HT 53 IN, BMI 42.80 INDEX, BP 135/75 MM HG, HR 65 /MIN, RR 16 /MIN, TEMP 98.2 F, OXYGEN SAT % 96%, NA INITIALS SC 15:35, REVIEWED BY: BLANCA. EXAMINATION : PATIENT IS ALERT O X 3 AND COOPERATIVE. PATIENT AMBULATES WITH A LIMP ON TH LEFT LEG. PATIENT ABLE TO FLEX 45 DEGREES AND EXTEND 5 DEGREES WITH DIFFICULTIES. PATIENT'S LEFT LEG IS WEAKER AT FLEXION AND EXTENSION COMPARED TO THE RIGHT LEG. THERE IS TENDERNESS IN THE LOW BACK PARASPINAL MUSCLE GROUP. MRI OF THE LUMBAR SPINE DONE ON 11/29/2005 SHOWS A DISC PROTRUSION AT L4-L5 AND AT L5-S1. ASSESSMENTS INTERVERTEBRAL DISC DISORDERS WITH RADICULOPATHY, LUMBAR REGION - M51.16 (PRIMARY) PROTRUSION OF INTERVERTEBRAL DISC OF LUMBOSACRAL REGION - M51.27 INTERVERTEBRAL DISC DISORDERS WITH RADICULOPATHY, LUMBOSACRAL REGION - M51.17 TREATMENT INTERVERTEBRAL DISC DISORDERS WITH RADICULOPATHY, LUMBAR REGION NOTES: WE DISCUSSED SEVERAL ISSUES WITH MRS. AHS'S PAIN MANAGEMENT CASE. AT THIS TIME THE PATIENT WILL CONTINUE WITH THE SAME MEDICATION REGIME BEFORE. PATIENT IS USING THE HYDROCODONE AND MORPHINE FOR THE SOMATIC PAIN, LYRICA AND AMITRIPTYLINE FOR THE NEUROPATHIC PAIN AND METHOCARBAMOL FOR THE MUSCLE SPASMS. PATIENT DENIES ABUSE TO ANY MEDICATION, DENIES US OF ILLEGAL SUBSTANCES AND STATES SHE IS ONLY USING THE MEDICATION FOR PAIN MANAGEMENT. URINE TOXICOLOGY REPORT DONE ON 08/09/16 SHOWS CONSISTENT RESULTS WIT THE PATIENTS MEDICATION LIST. PATIENT WAS ADVISED TO BRING ALL MEDICATIONS TO EVERY VISIT. PATIENT STATES SHE IS UNABLE TO DECREASE HER MEDICATION AND IF SHE DOES SHE WILL NOT BE ABLE TO FUNCTION. I WOULD LIKE THE PATIENT TO RETURN AFTER A NEW LUMBAR MRI DUE TO THE WEAKENING OF THE LEGS. PATIENT WILL RETURN IN ONE MONTH. INSTRUCTIONS WERE GIVEN, QUESTIONS WERE ANSWERED, PATIENT REPORTS UNDERSTANDING AND AGREES WITH THE PLAN. I, GAIL HIRSCH, DOCUMENTED THE ABOVE INFORMATION ACTING A SCRIBE FOR DR. IZQUIERDO. I HAVE REVIEWED THE ABOVE DOCUMENT, WRITTEN BY GAIL GARNER AND I VERIFY THAT IT IS ACCURATE. PROTRUSION OF INTERVERTEBRAL DISC OF LUMBOSACRAL REGION REFILL HYDROCODONE-ACETAMINOPHEN TABLET, 10-325 MG, 1, ORALLY, EVERY 6 HRS NEEDED MAXIMUM 4 PER DAY, 30 DAYS, 120, REFILLS 0 REFILL MORPHINE SULFATE ER TABLET EXTENDED RELEASE, 60 MG, 1 TABLET, ORALLY, ONCE A DAY FOR PAIN, 30 DAY(S), 30, REFILLS 0 REFILL LYRICA CAPSULE, 150 MG, 1 CAPSULE, ORALLY, Q8H MDD3, 30 DAY(S), 90, REFILLS 1 REFILL AMITRIPTYLINE HCL TABLET, 75 MG, 1 TABLET, ORALLY, QHS, 30 DAY(S), 30, REFILLS 1 REFILL METHOCARBAMOL TABLET, 750 MG, 1 TABLET, ORALLY, EVERY 8 HRS NEEDED FOR SPASMS AND PAIN MDD3, 30 DAY(S), 90, REFILLS 1 OTHERS START TIZANIDINE HCL TABLET, 4 MG, 1 TABLET NEEDED, ORALLY, BEFORE BEDTIME FOR SPASMS AND PAIN MAY REPEAT IN 4 HRS MDD2, 30 DAY(S), 50, REFILLS 1 PROCEDURES PN WORKMANS' COMP OPINION IN YOUR OPINION, WAS THE INCIDENT THAT THE PATIENT DESCRIBED THE COMPETENT MEDICAL CAUSE OF THIS INJURY/ILLNESS? YES ARE THE PATIENT'S COMPLAINTS CONSISTENT WITH HIS/HER HISTORY OF THE INJURY/ILLNESS? YES IS THE PATIENT'S HISTORY OF THE INJURY/ILLNESS CONSISTENT WITH YOUR OBJECTIVE FINDING? YES WHAT IS THE PERCENTAGE OF TEMPORARY IMPAIRMENT? MODERATE TO MARKED = 66.7% IS THE PATIENT WORKING? NO DOCTOR ON SITE: HOWARD VENEGAS MD PROCEDURE CODES FA211 ESTABILISHED PATIENT [facility] FACILITY CHARGE G8427 DOC MEDS VERIFIED W/PT OR RE G8730 PAIN ASSESS POS TOOL F/U PLAN DOC DISPOSITION & COMMUNICATION FOLLOW UP 4 WEEKS ELECTRONICALLY SIGNED BY HOWARD IZQUIERDO MD ON 11/14/2016 AT 08:45 PM EDT DISCLAIMER : THIS IS A VISIT SUMMARY EXTRACTED FROM THE [employer] CHART. IT IS NOT A COPY OF THE [employer] PROGRESS NOTE. BRADLEY
== END ==
LOC: M PAIN 15:20
PROVIDERS: ATTEND Anesthesiology
DX: G89.29 Other chronic pain (principal); M51.16 Intervertebral disc disorders with radiculopathy, lumbar region; M51.27 Other intervertebral disc displacement, lumbosacral region; M51.17 Intervertebral disc disorders with radiculopathy, lumbosacral region; R56.9 Unspecified convulsions; G43.909 Migraine, unspecified, not intractable, without status migrainosus; M79.7 Fibromyalgia; Z88.8 Allergy status to other drugs, medicaments and biological substances; Z91.040 Latex allergy status; Z91.030 Bee allergy status; Z79.891 Long term (current) use of opiate analgesic; Z79.899 Other long term (current) drug therapy

== ENCOUNTER → 2016-12-19 | Outpatient (CLI) | payer OTHER ==
--- NOTE | 2017-01-03 00:06 | ECWPNPC ---
PATIENT NAME: DAGO ASH : 1965 GENDER: FEMALE VISIT DATE: 12/19/2016 DISCHARGE DATE: 12/19/16 1640 VISIT LOCKED DATE TIME: PHYSICIAN: HOWRAD IZQUIERDO RESOURCE: HOWARD IZQUIERDO REASON FOR APPOINTMENT 1. BACK W/C HISTORY OF PRESENT ILLNESS HISTORY OF PRESENT ILLNESS: PAIN THE PATIENT DESCRIBES THE PAIN... 51 YEAR OLD FEMALE PATIENT WITH HISTORY OF CHRONIC LOW BACK PAIN. PATIENT STATES THAT SHE HAS CHRONIC PAIN ALL THE TIME. PATIENT HAS A PAIN SCORE OF 7/10 ON TODAY'S VISIT. 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 PATIENT WAS ASSISTING TO HELP A PATIENT OFF THE FLOOR AND SHE THEN INJURED HER BACK. PATIENT REPORTS THAT SHE HAS PAIN RADIATING DOWN HER LEFT LEG FROM HER BACK BUT IT SEEMS TO HAPPEN MORE WHILE GOING ON LONG TRIPS. PATIENT REPORTS THAT SHE HAS TRIED PHYSICAL THERAPY IN THE PAST AND IT DID NOT HELP WITH THE PAIN. PATIENT DENIES HAVING ANY BACK SURGERY. PATIENT REPORTS THAT SHE IS USING A TENS UNIT AT HOME AND IT HELPS WITH THE PAIN SOME. PATIENT REPORTS OF RADIATING PAIN DOWN THE LEFT LEG FROM HER BACK. PATIENT DENIES UNEXPLAINABLE WEIGHT LOSS, FEVER, CHILLS, NEW CHANGES ON HER URINARY OR BOWEL CONTROL. FALL RISK SCREENING: SCREENING :NO FALLS IN THE PAST YEAR CURRENT MEDICATIONS TAKING LYRICA 150 MG CAPSULE 1 CAPSULE ORALLY Q8H MDD3 TAKING AMITRIPTYLINE HCL 75 MG TABLET 1 TABLET ORALLY QHS TAKING METHOCARBAMOL 750 MG TABLET 1 TABLET ORALLY EVERY 8 HRS NEEDED FOR SPASMS AND PAIN MDD3 TAKING TIZANIDINE HCL 4 MG TABLET 1 TABLET NEEDED ORALLY BEFORE BEDTIME FOR SPASMS AND PAIN MAY REPEAT IN 4 HRS MDD2 TAKING MORPHINE SULFATE ER 60 MG TABLET EXTENDED RELEASE 1 TABLET ORALLY ONCE A DAY FOR PAIN TAKING HYDROCODONE-ACETAMINOPHEN 10-325 MG TABLET 1 ORALLY EVERY 6 HRS NEEDED MAXIMUM 4 PER DAY MEDICATION LIST REVIEWED AND RECONCILED WITH THE PATIENT PAST MEDICAL HISTORY SEIZURE MIGRAINE FIBROMYALGIA ALLERGIES KEFLEX: RASH: ALLERGY NYSTATIN: RASH: ALLERGY MYSOLINE: RASH: ALLERGY LATEX (FOR ALLERGY USE ONLY): RASH: ALLERGY BEE STINGS: ANAPHYLAXIS: ALLERGY ZOLOFT: RASH: ALLERGY SURGICAL HISTORY 10/1989 GALL BLADDER REMOVED 2006 BLADDER SLING 2008 SOCIAL HISTORY GENERAL: TOBACCO USE ARE YOU A:CURRENT SMOKER HOW MANY CIGARETTES A DAY DO YOU SMOKE?31 OR MORE PATIENT COUNSELED ON THE DANGERS OF TOBACCO USE AND URGED TO QUIT:08/04/2015 ARE YOU INTERESTED IN QUITTING?THINKING ABOUT QUITTING COUNSELED THE PATIENT ON SMOKING CESSATION, EDUCATION [id number]/05/2016 SMOKING CESSATION INFORMATION GIVEN08/04/2015 CAFFEINE CAFFEINE USE?NO HOSPITALIZATION/MAJOR DIAGNOSTIC PROCEDURE SURGERIES REVIEW OF SYSTEMS REVIEWED BY: PROVIDER: HOWARD IZQUIERDO MD . CONSTITUTIONAL: ANY CHANGE IN YOUR MEDICAL CONDITION? NO . CHILLS NO . FEVER NO . INFECTION: DO YOU HAVE NEW INFECTIONS? NO . DO YOU HAVE HISTORY OF MRSA? NO . MUSCULOSKELETAL: ANY NEW PATTERNS OF PAIN OR NUMBNESS? NO . GASTROENTEROLOGY: ANY NEW CHANGE IN BOWEL CONTROL? NO . GENITOURINARY: ANY NEW CHANGE IN BLADDER CONTROL? NO . IS THERE A CHANCE YOU COULD BE ? NO . HEMATOLOGY/LYMPH: DO YOU TAKE ANY BLOOD THINNERS? (FOR EXAMPLE- COUMADIN, PLAVIX, AGGRENOX, PLATEL, PRADAXA, OR XARELTO) NO . WHEN WAS YOUR LAST DOSE? DATE: TIME: . NEUROLOGY: HAVE YOU FALLEN IN THE PAST 6 MONTHS? NO . ANY NEW EXTREMITY NUMBNESS OR WEAKNESS? NO . CARDIOLOGY: DO YOU HAVE A PACEMAKER OR DEFIBRILLATOR? NO . RESPIRATORY: HAVE YOU BEEN SICK IN THE PAST WEEK? NO . FEVER NO . FLU LIKE SYMPTOMS? NO . COUGH NO . INTEGUMENTARY: DO YOU HAVE ANY RASHES OR OPEN SORES? NO . ALLERGIC/IMMUNO: ARE YOU ALLERGIC TO SHELLFISH OR IV DYE? NO . ANY NEW ALLERGIES? NO . PSYCHIATRIC: DO YOU HAVE THOUGHTS OF HURTING YOURSELF OR SOMEONE ELSE? NO . ARE YOU ABUSED, NEGLECTED, OR IN AN UNSAFE ENVIRONMENT? NO . ENDOCRINOLOGY: ARE YOU DIABETIC? NO . OTHER: DO YOU NEED ANY PRESCRIPTIONS? YES NEEDS REFILLS FOR ALL . IF YES, PLEASE LIST: ____ . ANY NEW PROBLEMS WITH YOUR MEDICATIONS? NO . WHEN DID YOU LAST EAT? ____ . WHEN DID YOU LAST DRINK? ____ . WHAT DID YOU LAST DRINK? ____ . NAME OF PERSON DRIVING YOU HOME? ____ . DO YOU HAVE ANY OTHER QUESTIONS OR CONCERNS NO . VITAL SIGNS WT 167 LBS, HT 53 IN, BMI 41.79 INDEX, BP 158/84 MM HG, HR 62 /MIN, RR 16 /MIN, TEMP 97.3 F, OXYGEN SAT % 96%, NA INITIALS SC 13:23, REVIEWED BY: KG. EXAMINATION : PATIENT IS ALERT O X 3 AND COOPERATIVE. PATIENT SEEMS TO BE WALKING WITHOUT ANY LIMP. PATIENT ABLE TO FLEX 45 DEGREES AND EXTEND 5 DEGREES WITH DIFFICULTIES. PATIENT'S LEFT LEG IS WEAKER AT FLEXION AND EXTENSION COMPARED TO THE RIGHT LEG. THERE IS TENDERNESS IN THE LOW BACK PARASPINAL MUSCLE GROUP. MRI OF THE LUMBAR SPINE DONE ON 11/29/2005 SHOWS A DISC PROTRUSION AT L4-L5 AND AT L5-S1. URINE IAN DONE ON 08/09/16 SHOES CONSISTENT RESULTS WITH PATIENTS MEDICATION LIST. 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 DISC DISORDERS WITH RADICULOPATHY, LUMBOSACRAL REGION - M51.17 TREATMENT PROTRUSION OF INTERVERTEBRAL DISC OF LUMBOSACRAL REGION REFILL LYRICA CAPSULE, 150 MG, 1 CAPSULE, ORALLY, Q8H MDD3, 30 DAY(S), 90, REFILLS 0 REFILL AMITRIPTYLINE HCL TABLET, 75 MG, 1 TABLET, ORALLY, QHS, 30 DAY(S), 30, REFILLS 0 REFILL METHOCARBAMOL TABLET, 750 MG, 1 TABLET, ORALLY, EVERY 8 HRS NEEDED FOR SPASMS AND PAIN MDD3, 30 DAY(S), 75, REFILLS 1 REFILL MORPHINE SULFATE ER TABLET EXTENDED RELEASE, 60 MG, 1 TABLET, ORALLY, ONCE A DAY FOR PAIN, 30 DAY(S), 30, REFILLS 0 REFILL HYDROCODONE-ACETAMINOPHEN TABLET, 10-325 MG, 1, ORALLY, EVERY 6 HRS NEEDED MAXIMUM 4 PER DAY, 30 DAYS, 120, REFILLS 0 CLINICAL NOTES: WE DISCUSSED SEVERAL ISSUES WITH MRS. ASH'S PAIN MANAGEMENT CASE. AT THIS TIME THE PATIENT WILL CONTINUE WITH THE SAME MEDICATION REGIME BEFORE. PATIENT IS USING THE HYDROCODONE AND MORPHINE FOR THE SOMATIC PAIN, LYRICA AND AMITRIPTYLINE FOR THE NEUROPATHIC PAIN AND METHOCARBAMOL FOR THE MUSCLE SPASMS. PATIENT DENIES ABUSE TO ANY MEDICATION, DENIES US OF ILLEGAL SUBSTANCES AND STATES SHE IS ONLY USING THE MEDICATION FOR PAIN MANAGEMENT. URINE TOXICOLOGY REPORT DONE ON 12/01/2016 SHOWS CONSISTENT RESULTS WIT THE PATIENTS MEDICATION LIST. PATIENT DID BRING ALL MEDICATION TO TODAYS VISIT AND WAS AGAIN ADVISED TO BRING THEM TO UPCOMING APPOINTMENTS. PATIENT STATES SHE IS UNABLE TO DECREASE HER MEDICATION AND IF SHE DOES SHE WILL NOT BE ABLE TO FUNCTION. I WILL REQUEST A NEW LUMBAR MRI DUE TO THE WEAKENING OF THE LEGS WHICH WILL BE BOOKED AFTER THE APPROVAL FROM THE INSURANCE. PATIENT WILL RETURN IN 7 WEEKS. INSTRUCTIONS WERE GIVEN, QUESTIONS WERE ANSWERED, PATIENT REPORTS UNDERSTANDING AND AGREES WITH THE PLAN. I,ROLANDA GONZALEZ, DOCUMENTED THE ABOVE INFORMATION ACTING A SCRIBE FOR DR. IZQUIERDO. I HAVE REVIEWED THE ABOVE DOCUMENT, WRITTEN BY ROLANDA GONZALEZ SCRIBJohanne AND I VERIFY THAT IT IS ACCURATE. OTHERS REFILL TIZANIDINE HCL TABLET, 4 MG, 1 TABLET NEEDED, ORALLY, BEFORE BEDTIME FOR SPASMS AND PAIN MAY REPEAT IN 4 HRS MDD2, 30 DAY(S), 60, REFILLS 1 PROCEDURES PN WORKMANS' COMP OPINION IN YOUR OPINION, WAS THE INCIDENT THAT THE PATIENT DESCRIBED THE COMPETENT MEDICAL CAUSE OF THIS INJURY/ILLNESS? YES ARE THE PATIENT'S COMPLAINTS CONSISTENT WITH HIS/HER HISTORY OF THE INJURY/ILLNESS? YES IS THE PATIENT'S HISTORY OF THE INJURY/ILLNESS CONSISTENT WITH YOUR OBJECTIVE FINDING? YES WHAT IS THE PERCENTAGE OF TEMPORARY IMPAIRMENT? MODERATE TO MARKED = 66.7% IS THE PATIENT WORKING? NO DOCTOR ON SITE: HOWARD VENEGAS MD PROCEDURE CODES FA211 ESTABILISHED [facility]IENT [facility] CHARGE [id number] OFFICE/OUTPATIENT VISIT EST G8427 DOC MEDS VERIFIED W/PT OR RE G8730 PAIN ASSESS POS TOOL F/U PLAN DOC DISPOSITION & COMMUNICATION FOLLOW UP 6 WEEKS ELECTRONICALLY SIGNED BY HOWARD IZQUIERDO MD ON 01/02/2017 AT 08:27 PM EDT DISCLAIMER : THIS IS A VISIT SUMMARY EXTRACTED FROM THE [employer] CHART. IT IS NOT A COPY OF THE [employer] PROGRESS NOTE. MTDD
== END ==
LOC: M PAIN 13:20
PROVIDERS: ATTEND Anesthesiology
DX: G89.29 Other chronic pain (principal); M51.27 Other intervertebral disc displacement, lumbosacral region; M51.16 Intervertebral disc disorders with radiculopathy, lumbar region; M51.17 Intervertebral disc disorders with radiculopathy, lumbosacral region; R56.9 Unspecified convulsions; G43.909 Migraine, unspecified, not intractable, without status migrainosus; F17.210 Nicotine dependence, cigarettes, uncomplicated; Z88.8 Allergy status to other drugs, medicaments and biological substances; Z91.040 Latex allergy status; Z91.030 Bee allergy status; Z79.891 Long term (current) use of opiate analgesic; Z79.899 Other long term (current) drug therapy

== ENCOUNTER → 2017-02-03 | Outpatient (CLI) | payer OTHER ==
--- NOTE | 2017-02-21 02:57 | ECWPNPC ---
PATIENT NAME: DAGO ASH : 1965 GENDER: FEMALE VISIT DATE: 02/03/2017 DISCHARGE DATE: 02/03/17921 VISIT LOCKED DATE TIME: PHYSICIAN: SHIRLEY LILLY RESOURCE: SHIRLEY LILLY REASON FOR APPOINTMENT 1. MEDS HISTORY OF PRESENT ILLNESS HISTORY OF PRESENT ILLNESS: PAIN THE PATIENT DESCRIBES THE PAIN... THE PATIENT DESCRIBES THE PAIN... THE PATIENT DESCRIBES THE PAIN... THE PATIENT DESCRIBES THE PAIN... THE PATIENT DESCRIBES THE PAIN... PAIN THE PATIENT DESCRIBES THE PAIN... THE PATIENT DESCRIBES THE PAIN... THE PATIENT DESCRIBES THE PAIN... THE PATIENT DESCRIBES THE PAIN... THE PATIENT DESCRIBES THE PAIN... 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 RATING PAIN VAS 8/10.PAIN IS LOCATED ACROSS LOW BACK AND RADIATES DOWN LEFT LEG.FINDS CURRENT CHRONIC PAIN MEDICATION EFFECTIVE AT REDUCING PAIN AND KEEPING HER COMFORTABLECURRENT PAIN MEDICINE REGIMEN:ARTHROTEC 75/200 BID,LYRICA 150MG TID,METHCARBOMOL 750MG TID,[id number] AT HS,AMBIEN 10MG AT HS,HYDROCODONE 10/325 Q6H PRN AND MORPHINE 60MG ER.DENIES SIDE EFFECTS.DESCRIBES PAIN CONSTANT LBP WITH INTERMITTENT SHOOTING LEFT POSTERIOR LEG PAIN.PAIN IS AGGREVATED WITH PROLONGED SITTING AND WALKING. FALL RISK SCREENING: SCREENING :NO FALLS IN THE PAST YEAR CURRENT MEDICATIONS TAKING TIZANIDINE HCL 4 MG TABLET 1 TABLET NEEDED ORALLY BEFORE BEDTIME FOR SPASMS AND PAIN MAY REPEAT IN 4 HRS MDD2 TAKING LYRICA 150 MG CAPSULE 1 CAPSULE ORALLY Q8H MDD3 TAKING AMITRIPTYLINE HCL 75 MG TABLET 1 TABLET ORALLY QHS TAKING MORPHINE SULFATE ER 60 MG TABLET EXTENDED RELEASE 1 TABLET ORALLY ONCE A DAY FOR PAIN TAKING METHOCARBAMOL 750 MG TABLET 1 TABLET ORALLY EVERY 8 HRS NEEDED FOR SPASMS AND PAIN MDD3 TAKING HYDROCODONE-ACETAMINOPHEN 10-325 MG TABLET 1 ORALLY EVERY 6 HRS NEEDED MAXIMUM 4 PER DAY MEDICATION LIST REVIEWED AND RECONCILED WITH THE PATIENT PAST MEDICAL HISTORY SEIZURE MIGRAINE FIBROMYALGIA ALLERGIES KEFLEX: RASH: ALLERGY NYSTATIN: RASH: ALLERGY MYSOLINE: RASH: ALLERGY LATEX (FOR ALLERGY USE ONLY): RASH: ALLERGY BEE STINGS: ANAPHYLAXIS: ALLERGY ZOLOFT: RASH: ALLERGY SURGICAL HISTORY 10/1989 GALL BLADDER REMOVED 2006 BLADDER SLING 2008 SOCIAL HISTORY GENERAL: TOBACCO USE ARE YOU A:CURRENT SMOKER HOW MANY CIGARETTES A DAY DO YOU SMOKE?31 OR MORE PATIENT COUNSELED ON THE DANGERS OF TOBACCO USE AND URGED TO QUIT:08/04/2015 ARE YOU INTERESTED IN QUITTING?THINKING ABOUT QUITTING COUNSELED THE PATIENT ON SMOKING CESSATION, EDUCATION [id number]/05/2016 SMOKING CESSATION INFORMATION GIVEN08/04/2015 CAFFEINE CAFFEINE USE?NO PAIN CLINIC PFS, CLERGY, PUBLIC HEALTH REFERRALS HAS THE PATIENT BEEN EDUCATED REGARDING HIS/HER PLAN OF CARE?YES HAS THE PATIENT BEEN EDUCATED REGARDING PAIN, THE RISK FOR PAIN, THE IMPORTANCE OF EFFECTIVE PAIN MANAGEMENT, AND THE PAIN ASSESSMENT PROCESS?YES HOSPITALIZATION/MAJOR DIAGNOSTIC PROCEDURE SURGERIES REVIEW OF SYSTEMS REVIEWED BY: PROVIDER: SHIRLEY HUBBARD . CONSTITUTIONAL: ANY CHANGE IN YOUR MEDICAL CONDITION? NO . CHILLS NO . FEVER NO . INFECTION: DO YOU HAVE NEW INFECTIONS? NO . DO YOU HAVE HISTORY OF MRSA? NO . MUSCULOSKELETAL: ANY NEW PATTERNS OF PAIN OR NUMBNESS? NO . GASTROENTEROLOGY: ANY NEW CHANGE IN BOWEL CONTROL? NO . GENITOURINARY: ANY NEW CHANGE IN BLADDER CONTROL? NO . IS THERE A CHANCE YOU COULD BE ? NO . HEMATOLOGY/LYMPH: DO YOU TAKE ANY BLOOD THINNERS? (FOR EXAMPLE- COUMADIN, PLAVIX, AGGRENOX, PLATEL, PRADAXA, OR XARELTO) NO . WHEN WAS YOUR LAST DOSE? DATE: TIME: . NEUROLOGY: HAVE YOU FALLEN IN THE PAST 6 MONTHS? NO . ANY NEW EXTREMITY NUMBNESS OR WEAKNESS? NO . CARDIOLOGY: DO YOU HAVE A PACEMAKER OR DEFIBRILLATOR? NO . RESPIRATORY: HAVE YOU BEEN SICK IN THE PAST WEEK? NO . FEVER NO . FLU LIKE SYMPTOMS? NO . COUGH NO . INTEGUMENTARY: DO YOU HAVE ANY RASHES OR OPEN SORES? NO . ALLERGIC/IMMUNO: ARE YOU ALLERGIC TO SHELLFISH OR IV DYE? NO . ANY NEW ALLERGIES? NO . PSYCHIATRIC: DO YOU HAVE THOUGHTS OF HURTING YOURSELF OR SOMEONE ELSE? NO . ARE YOU ABUSED, NEGLECTED, OR IN AN UNSAFE ENVIRONMENT? NO . ENDOCRINOLOGY: ARE YOU DIABETIC? NO . OTHER: DO YOU NEED ANY PRESCRIPTIONS? YES, AMITRYPTYLINE, LYRICA, TIZANIDINE, METHOCARBIMOL, HYDROCODONE, MORPHINE ER . IF YES, PLEASE LIST: ____ . ANY NEW PROBLEMS WITH YOUR MEDICATIONS? NO . WHEN DID YOU LAST EAT? ____ . WHEN DID YOU LAST DRINK? ____ . WHAT DID YOU LAST DRINK? ____ . NAME OF PERSON DRIVING YOU HOME? ____ . DO YOU HAVE ANY OTHER QUESTIONS OR CONCERNS NO . VITAL SIGNS WT 168.2 LBS, HT 63 IN, BMI 29.79 INDEX, BP 165/85 MM HG, HR 65 /MIN, RR 16 /MIN, TEMP 98.3 F, OXYGEN SAT % 98%, REVIEWED BY: ANDI. EXAMINATION GENERAL EXAMINATION: LUNGS:LUNG SOUNDS ARE CLEAR. HEART:HEART RATE REGULAR. MUSCULOSKELETAL:*, MUSCLE STRENGTH TESTING 5/5 BILATERAL, PALPATION: POSITIVE FOR PAIN OVER L/S SPINE,.+ FOR PAIN OVER L/S PARASPINALS, TRIGGER POINTS:, ELICITED WITH PALPATION OVER LUMBAR PARAVERTEBRAL MUSCLES . RESTRICTION OF ROM IN THIS AREA. ASSESSMENTS PROTRUSION OF INTERVERTEBRAL DISC OF LUMBOSACRAL REGION - M51.27 (PRIMARY) CHRONIC PRESCRIPTION OPIATE USE - Z79.891 TREATMENT PROTRUSION OF INTERVERTEBRAL DISC OF LUMBOSACRAL REGION REFILL TIZANIDINE HCL TABLET, 4 MG, 1 TABLET NEEDED, ORALLY, BEFORE BEDTIME FOR SPASMS AND PAIN MAY REPEAT IN 4 HRS MDD2, 30 DAY(S), 60, REFILLS 2 REFILL LYRICA CAPSULE, 150 MG, 1 CAPSULE, ORALLY, Q8H MDD3, 30 DAY(S), 90, REFILLS 2 REFILL AMITRIPTYLINE HCL TABLET, 75 MG, 1 TABLET, ORALLY, QHS, 30 DAY(S), 30, REFILLS 2 REFILL MORPHINE SULFATE ER TABLET EXTENDED RELEASE, 60 MG, 1 TABLET, ORALLY, ONCE A DAY FOR PAIN, 30 DAY(S), 30, REFILLS 0 REFILL METHOCARBAMOL TABLET, 750 MG, 1 TABLET, ORALLY, EVERY 8 HRS NEEDED FOR SPASMS AND PAIN MDD3, 30 DAY(S), 75, REFILLS 2 REFILL HYDROCODONE-ACETAMINOPHEN TABLET, 10-325 MG, 1, ORALLY, EVERY 6 HRS NEEDED MAXIMUM 4 PER DAY, 30 DAYS, 120, REFILLS 0 NOTES: [employer] REGISTRY [id number] RISKS AND BENEFITS OF NARCOTIC/OPIOD MEDICATIONS WERE REVIEWED WITH PATIENT - THIS INCLUDES BUT IS NOT LIMITED TO RISK OF DEPENDANCE/DEVELOPMENT OF ADDICTION, MOOD DISTURBANCE AND DEPRESSION, OSTEOPOROSIS, HORMONAL AND LABIDAL CHANGES, RESPIRATORY DEPRESSION AND . PATIENT IS ADVISED NOT TO DRIVE WHILE ON THESE MEDICATIONS, AND DEMNOSTRATES COMPLLIANCE. BRINGS IN MEDICATIONS WHICH IS APPROPRIATE FOR WHAT WAS DISPENSED. RECENT URINE TOXICOLOGY REVIEWED. NO UNAUTHORIZED MEDICATIONS. NO ILLICIT SUBSTANCES AND PRESCRIBED MEDICATIONS WERE PRESENT.URINE TOX TODAY. PROCEDURES PN WORKMANS' COMP OPINION IN YOUR OPINION, WAS THE INCIDENT THAT THE PATIENT DESCRIBED THE COMPETENT MEDICAL CAUSE OF THIS INJURY/ILLNESS? YES ARE THE PATIENT'S COMPLAINTS CONSISTENT WITH HIS/HER HISTORY OF THE INJURY/ILLNESS? YES IS THE PATIENT'S HISTORY OF THE INJURY/ILLNESS CONSISTENT WITH YOUR OBJECTIVE FINDING? YES WHAT IS THE PERCENTAGE OF TEMPORARY IMPAIRMENT? MODERATE TO MARKED = 66.7% IS THE PATIENT WORKING? NO DOCTOR ON SITE: HOWARD VENEGAS MD PROCEDURE CODES FA211 ESTABILISHED PATIENT [facility] CHARGE DISPOSITION & COMMUNICATION FOLLOW UP 4 WEEKS ELECTRONICALLY SIGNED BY HAYDEE CHOWDHURY ON 02/20/2017 AT 08:57 PM EDT DISCLAIMER : THIS IS A VISIT SUMMARY EXTRACTED FROM THE [employer] CHART. IT IS NOT A COPY OF THE [employer] PROGRESS NOTE. [place]
== END ==
LOC: M PAIN 08:45
PROVIDERS: ATTEND Nurse Practitioner Family
DX: G89.29 Other chronic pain (principal); M51.27 Other intervertebral disc displacement, lumbosacral region; G40.909 Epilepsy, unspecified, not intractable, without status epilepticus; G43.909 Migraine, unspecified, not intractable, without status migrainosus; F17.210 Nicotine dependence, cigarettes, uncomplicated; Z88.8 Allergy status to other drugs, medicaments and biological substances; Z91.040 Latex allergy status; Z91.030 Bee allergy status; Z79.891 Long term (current) use of opiate analgesic; Z79.899 Other long term (current) drug therapy

== ENCOUNTER → 2017-03-03 | Outpatient (CLI) | payer OTHER | LOC: M PAIN 08:30 | PROVIDERS: ATTEND Nurse Practitioner Family | DX: G89.29 Other chronic pain (principal); M51.27 Other intervertebral disc displacement, lumbosacral region; F17.210 Nicotine dependence, cigarettes, uncomplicated; Z91.030 Bee allergy status; Z91.040 Latex allergy status; Z88.8 Allergy status to other drugs, medicaments and biological substances; Z79.891 Long term (current) use of opiate analgesic; Z79.899 Other long term (current) drug therapy ==

== ENCOUNTER → 2017-05-03 | Outpatient (CLI) | payer OTHER | LOC: M PAIN 08:30 | DX: G89.29 Other chronic pain (principal); M51.27 Other intervertebral disc displacement, lumbosacral region; R56.9 Unspecified convulsions; G43.909 Migraine, unspecified, not intractable, without status migrainosus; M79.7 Fibromyalgia; F17.210 Nicotine dependence, cigarettes, uncomplicated; Z88.8 Allergy status to other drugs, medicaments and biological substances; Z91.030 Bee allergy status; Z91.040 Latex allergy status; Z79.891 Long term (current) use of opiate analgesic; Z79.899 Other long term (current) drug therapy | CPT/HCPCS: G0463 ==

== ENCOUNTER → 2017-06-30 | Outpatient (CLI) | payer OTHER | LOC: M PAIN 08:45 | DX: G89.29 Other chronic pain (principal); M51.27 Other intervertebral disc displacement, lumbosacral region; Z79.891 Long term (current) use of opiate analgesic; R56.9 Unspecified convulsions; G43.909 Migraine, unspecified, not intractable, without status migrainosus; M79.7 Fibromyalgia; F17.210 Nicotine dependence, cigarettes, uncomplicated; Z79.899 Other long term (current) drug therapy; Z88.1 Allergy status to other antibiotic agents; Z88.8 Allergy status to other drugs, medicaments and biological substances; Z91.040 Latex allergy status; Z91.030 Bee allergy status | CPT/HCPCS: G0463 ==

== ENCOUNTER → 2017-08-30 | Outpatient (CLI) | payer OTHER | LOC: M PAIN 08:30 | DX: M51.27 Other intervertebral disc displacement, lumbosacral region (principal); R56.9 Unspecified convulsions; G43.909 Migraine, unspecified, not intractable, without status migrainosus; M79.7 Fibromyalgia; F17.210 Nicotine dependence, cigarettes, uncomplicated; Z79.891 Long term (current) use of opiate analgesic; Z79.899 Other long term (current) drug therapy; Z88.8 Allergy status to other drugs, medicaments and biological substances; Z91.030 Bee allergy status; Z91.040 Latex allergy status | CPT/HCPCS: G0463 ==

== ENCOUNTER → 2018-01-16 | Outpatient (CLI) | payer OTHER | LOC: M PAIN 08:45 | DX: M51.27 Other intervertebral disc displacement, lumbosacral region (principal); R56.9 Unspecified convulsions; G43.909 Migraine, unspecified, not intractable, without status migrainosus; M79.7 Fibromyalgia; F17.210 Nicotine dependence, cigarettes, uncomplicated; Z88.8 Allergy status to other drugs, medicaments and biological substances; Z91.040 Latex allergy status; Z91.030 Bee allergy status; Z79.891 Long term (current) use of opiate analgesic; Z79.899 Other long term (current) drug therapy | CPT/HCPCS: G0463 ==

== ENCOUNTER → 2018-06-29 | Outpatient (CLI) | payer OTHER ==
--- NOTE | 2018-07-06 01:11 | ECWPNPC ---
PATIENT NAME: DAGO ASH : 1965 GENDER: FEMALE VISIT DATE: 06/29/2018 DISCHARGE DATE: 06/29/18921 VISIT LOCKED DATE TIME: PHYSICIAN: SHIRLEY LILLY RESOURCE: SHIRLEY LILLY REASON FOR APPOINTMENT 1. W/C, BACK 2 MONTH F/U HISTORY OF PRESENT ILLNESS HISTORY OF PRESENT ILLNESS: PAIN THE PATIENT DESCRIBES THE PAIN... THE PATIENT DESCRIBES THE PAIN... THE PATIENT DESCRIBES THE PAIN... THE PATIENT DESCRIBES THE PAIN... THE PATIENT DESCRIBES THE PAIN... THE PATIENT DESCRIBES THE PAIN... THE PATIENT DESCRIBES THE PAIN... THE PATIENT DESCRIBES THE PAIN... THE PATIENT DESCRIBES THE PAIN... THE PATIENT DESCRIBES THE PAIN... 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 RATING PAIN VAS 8/10.PAIN IS LOCATED ACROSS LOW BACK AND RADIATES DOWN LEFT LEG.FINDS CURRENT CHRONIC PAIN MEDICATION EFFECTIVE AT REDUCING PAIN AND KEEPING HER COMFORTABLECURRENT PAIN MEDICINE REGIMEN:LYRICA 150MG TID,METHCARBOMOL 750MG TID,[id number] AT HS,,HYDROCODONE 10/325 Q8H PRN AND MORPHINE 60MG ER.DENIES SIDE EFFECTS.DESCRIBES PAIN CONSTANT LBP WITH INTERMITTENT SHOOTING LEFT POSTERIOR LEG PAIN.PAIN IS AGGREVATED WITH PROLONGED SITTING AND WALKING.SHE IS DEALING WITH A LIVER CONDITION AND WE WILL BE WEANING HER DOWN AND OFF SOME OF HER PAIN MEDICATION. FALL RISK SCREENING: SCREENING : NO FALLS IN THE PAST YEAR. CURRENT MEDICATIONS TAKING FUROSEMIDE 40 MG TABLET 1 TABLET ORALLY ONCE A DAY TAKING SPIRONOLACTONE 50 MG TABLET 1 TABLET WITH FOOD ORALLY ONCE A DAY TAKING PROAIR HFA 108 (90 BASE) MCG/ACT AEROSOL SOLUTION 2 PUFFS NEEDED INHALATION QID PRN TAKING LYRICA 150 MG CAPSULE 1 CAPSULE ORALLY Q8H MDD3 TAKING METHOCARBAMOL 750 MG TABLET 1 TABLET ORALLY EVERY 8 HRS NEEDED FOR SPASMS AND PAIN MDD3 TAKING AMITRIPTYLINE HCL 75 MG TABLET 1 TABLET ORALLY QHS TAKING TIZANIDINE HCL 4 MG TABLET 2 ORALLY BEFORE BEDTIME PRN TAKING HYDROCODONE-ACETAMINOPHEN 10-325 MG TABLET 1 ORALLY EVERY 8 HRS NEEDED MAXIMUM 3 PER DAY TAKING MORPHINE SULFATE ER 60 MG TABLET EXTENDED RELEASE 1 TABLET ORALLY ONCE A DAY FOR PAIN TAKING FEXOFENADINE HCL 60 MG CAPSULE ORALLY TAKING CHOLESTYRAMINE 4 GM PACKET 1 PACKET MIXED WITH WATER OR NON-CARBONATED DRINK ORALLY TWICE A DAY NOT-TAKING VITAMIN D 36442 UNIT CAPSULE 1 CAPSULE ORALLY NOT-TAKING VITAMIN D (CHOLECALCIFEROL) 1000 UNIT TABLET 2 TABLET ORALLY ONCE A DAY MEDICATION LIST REVIEWED AND RECONCILED WITH THE PATIENT PAST MEDICAL HISTORY SEIZURE MIGRAINE FIBROMYALGIA ALLERGIES KEFLEX: RASH: ALLERGY NYSTATIN: RASH: ALLERGY MYSOLINE: RASH: ALLERGY LATEX (FOR ALLERGY USE ONLY): RASH: ALLERGY BEE STINGS: ANAPHYLAXIS: ALLERGY ZOLOFT: RASH: ALLERGY SURGICAL HISTORY 10/1989 GALL BLADDER REMOVED 2006 BLADDER SLING 2008 FAMILY HISTORY FATHER: MOTHER: , DIAGNOSED WITH HEART DISEASE, OTHER SOCIAL HISTORY GENERAL: TOBACCO USE ARE YOU A:CURRENT SMOKER ARE YOU INTERESTED IN QUITTING?THINKING ABOUT QUITTING COUNSELED THE PATIENT ON SMOKING CESSATION, EDUCATION DCAEDQOI78/18/2018 HOW MANY CIGARETTES A DAY DO YOU SMOKE?11-20 PATIENT COUNSELED ON THE DANGERS OF TOBACCO USE AND URGED TO QUIT:06/29/2018 SMOKING CESSATION INFORMATION GIVEN06/30/2017 ALCOHOL SCREENING DID YOU HAVE A DRINK CONTAINING ALCOHOL IN THE PAST YEAR?NO POINTS0 INTERPRETATIONNEGATIVE RECREATIONAL DRUG USE DRUG USE?NO CAFFEINE CAFFEINE USE?YES HOW OFTEN AND HOW MUCH? DAILY RASTAFARI [id number] ORIENTAL ORTHODOX LANGUAGE LANGUAGES SPOKEN:AUSTRALIAN LEARNING BARRIERS / SPECIAL NEEDS BARRIERS TO LEARNING?NO HEARING IMPAIRED?NO VISION IMPAIRED?NO READINESS TO LEARN?YES LEARNING PREFERENCES?NO SPECIAL DEVICES?NO ELECTRICAL MAINTENANCE MAN NEEDED?NO PAIN CLINIC PFS, CLERGY, PUBLIC HEALTH REFERRALS WAS THE PROVIDER NOTIFIED OF ANY PERTINENT INFO?YES HAS THE PATIENT BEEN EDUCATED REGARDING HIS/HER PLAN OF CARE?YES USES TENS UNIT DOESNT USE HEAT/COLD. ALONG WITH MEDS HAS THE PATIENT BEEN EDUCATED REGARDING PAIN, THE RISK FOR PAIN, THE IMPORTANCE OF EFFECTIVE PAIN MANAGEMENT, AND THE PAIN ASSESSMENT PROCESS?YES ADVANCE DIRECTIVE ADVANCE DIRECTIVE DISCUSSED WITH PATIENT:YES PT DECLINED INFORMATION OR ASSISTANCE AT THIS TIME HOSPITALIZATION/MAJOR DIAGNOSTIC PROCEDURE SURGERIES REVIEW OF SYSTEMS REVIEWED BY: PROVIDER: SHIRLEY HUBBARD . CONSTITUTIONAL: ANY CHANGE IN YOUR MEDICAL CONDITION? NO . CHILLS NO . FEVER NO . INFECTION: DO YOU HAVE NEW INFECTIONS? NO . DO YOU HAVE HISTORY OF MRSA? NO . MUSCULOSKELETAL: ANY NEW PATTERNS OF PAIN OR NUMBNESS? NO . GASTROENTEROLOGY: ANY NEW CHANGE IN BOWEL CONTROL? NO . GENITOURINARY: ANY NEW CHANGE IN BLADDER CONTROL? NO . IS THERE A CHANCE YOU COULD BE ? NO . HEMATOLOGY/LYMPH: DO YOU TAKE ANY BLOOD THINNERS? (FOR EXAMPLE- COUMADIN, PLAVIX, AGGRENOX, PLATEL, PRADAXA, OR XARELTO) NO . WHEN WAS YOUR LAST DOSE? DATE: TIME: . NEUROLOGY: HAVE YOU FALLEN IN THE PAST 12 MONTHS? NO . ANY NEW EXTREMITY NUMBNESS OR WEAKNESS? NO . CARDIOLOGY: DO YOU HAVE A PACEMAKER OR DEFIBRILLATOR? NO . RESPIRATORY: HAVE YOU BEEN SICK IN THE PAST WEEK? NO . FEVER NO . FLU LIKE SYMPTOMS? NO . COUGH NO . INTEGUMENTARY: DO YOU HAVE ANY RASHES OR OPEN SORES? NO . ALLERGIC/IMMUNO: ARE YOU ALLERGIC TO IV DYE? NO . ANY NEW ALLERGIES? NO . PSYCHIATRIC: DO YOU HAVE THOUGHTS OF HURTING YOURSELF OR SOMEONE ELSE? NO . ARE YOU ABUSED, NEGLECTED, OR IN AN UNSAFE ENVIRONMENT? NO . ENDOCRINOLOGY: ARE YOU DIABETIC? NO . OTHER: DO YOU NEED ANY PRESCRIPTIONS? REFILLS TIZANIDINE, AMITRIPTYLINE, HYDROCODONE, MORPHINE . IF YES, PLEASE LIST: ____ . ANY NEW PROBLEMS WITH YOUR MEDICATIONS? NO . WHEN DID YOU LAST EAT? ____ . WHEN DID YOU LAST DRINK? ____ . WHAT DID YOU LAST DRINK? ____ . NAME OF PERSON DRIVING YOU HOME? ____ . DO YOU HAVE ANY OTHER QUESTIONS OR CONCERNS NO . VITAL SIGNS WT 140.2 LBS, HT 63 IN, BMI 24.83 INDEX, BP 109/49 MM HG, HR 65 /MIN, RR 16 /MIN, TEMP 98.5 F, OXYGEN SAT % 100%, SAFE IN ENV? (Y/N) Y, NA INITIALS AR 08:50, REVIEWED BY: GAYE. EXAMINATION GENERAL EXAMINATION: GENERAL APPEARANCE:AWAKE,ALERT ,PLEAASANT . PSYCHAFFECT NORMAL . LUNGS:LUNG MOYER ARE CLEAR TO AUSCULTATION BILATERALLY. GOOD MOVEMENT OF AIR . HEART:S1, S2 IN A REGULAR RATE AND RHYTHM. NO SIGNIFICANT MURMURS, RUBS OR GALLOPS NOTED . ASSESSMENTS PROTRUSION OF INTERVERTEBRAL DISC OF LUMBOSACRAL REGION - M51.27 (PRIMARY) TREATMENT PROTRUSION OF INTERVERTEBRAL DISC OF LUMBOSACRAL REGION CONTINUE LYRICA CAPSULE, 150 MG, 1 CAPSULE, ORALLY, Q8H MDD3 CONTINUE METHOCARBAMOL TABLET, 750 MG, 1 TABLET, ORALLY, EVERY 8 HRS NEEDED FOR SPASMS AND PAIN MDD3 CONTINUE AMITRIPTYLINE HCL TABLET, 75 MG, 1 TABLET, ORALLY, QHS CONTINUE TIZANIDINE HCL TABLET, 4 MG, 2, ORALLY, BEFORE BEDTIME PRN STOP HYDROCODONE-ACETAMINOPHEN TABLET, 10-325 MG, 1, ORALLY, EVERY 8 HRS NEEDED MAXIMUM 3 PER DAY STOP MORPHINE SULFATE ER TABLET EXTENDED RELEASE, 60 MG, 1 TABLET, ORALLY, ONCE A DAY FOR PAIN START OXYCODONE HCL TABLET, 5 MG, 1 TABLET NEEDED, ORALLY, Q8H PRN MDD3, 30 DAY(S), 90, REFILLS 0 START MORPHINE SULFATE ER TABLET EXTENDED RELEASE, 30 MG, 1 TABLET, ORALLY, DAILY MDD1, 30 DAY(S), 30, REFILLS 0 NOTES: ISTOP REGISTRY REVIEWED AND DEMONSTRATES COMPLLIANCE. (REF # ) BRINGS IN MEDICATIONS WHICH IS APPROPRIATE FOR WHAT WAS DISPENSED. RECENT URINE TOXICOLOGY REVIEWED. NO UNAUTHORIZED MEDICATIONS. NO ILLICIT SUBSTANCES AND PRESCRIBED MEDICATIONS WERE PRESENT. URINE TOX TODAY, RISKS AND BENEFITS OF NARCOTIC/OPIOD MEDICATIONS WERE REVIEWED WITH PATIENT - THIS INCLUDES BUT IS NOT LIMITED TO RISK OF DEPENDANCE/DEVELOPMENT OF ADDICTION, MOOD DISTURBANCE AND DEPRESSION, OSTEOPOROSIS, HORMONAL AND LABIDAL CHANGES, RESPIRATORY DEPRESSION AND . PATIENT IS ADVISED NOT TO DRIVE OR DRINK ALCOHOL WHILE ON THESE MEDICATIONS. PROCEDURES PN WORKMANS' COMP OPINION IN YOUR OPINION, WAS THE INCIDENT THAT THE PATIENT DESCRIBED THE COMPETENT MEDICAL CAUSE OF THIS INJURY/ILLNESS? YES ARE THE PATIENT'S COMPLAINTS CONSISTENT WITH HIS/HER HISTORY OF THE INJURY/ILLNESS? YES IS THE PATIENT'S HISTORY OF THE INJURY/ILLNESS CONSISTENT WITH YOUR OBJECTIVE FINDING? YES WHAT IS THE PERCENTAGE OF TEMPORARY IMPAIRMENT? MODERATE TO MARKED = 66.7% IS THE PATIENT WORKING? NO DOCTOR ON SITE: HOWARD VENEGAS MD PROCEDURE CODES FA211 ESTABILISHED PATIENT [facility] CHARGE DISPOSITION & COMMUNICATION FOLLOW UP 6 WEEKS ELECTRONICALLY SIGNED BY HAYDEE HERRERA ON 07/05/2018 AT 05:11 PM EST DISCLAIMER : THIS IS A VISIT SUMMARY EXTRACTED FROM THE [employer] CHART. IT IS NOT A COPY OF THE [employer] PROGRESS NOTE. BRADLEY
== END ==
LOC: M PAIN 08:30
PROVIDERS: ATTEND Nurse Practitioner Family
DX: M51.27 Other intervertebral disc displacement, lumbosacral region (principal); R56.9 Unspecified convulsions; G43.909 Migraine, unspecified, not intractable, without status migrainosus; M79.7 Fibromyalgia; F17.210 Nicotine dependence, cigarettes, uncomplicated; Z88.1 Allergy status to other antibiotic agents; Z88.8 Allergy status to other drugs, medicaments and biological substances; Z91.030 Bee allergy status; Z91.040 Latex allergy status; Z79.891 Long term (current) use of opiate analgesic; Z79.899 Other long term (current) drug therapy

== ENCOUNTER → 2018-08-24 | Outpatient (CLI) | payer OTHER ==
[~2018-08-24] MED LIST changes: -/ARTH50TA PO; +ARTH1TAB4 PO
--- NOTE | 2018-09-13 01:02 | ECWPNPC ---
PATIENT NAME: DAGO ASH : 1965 GENDER: FEMALE VISIT DATE: 08/24/2018 DISCHARGE DATE: 08/24/18931 VISIT LOCKED DATE TIME: PHYSICIAN: SHIRLEY LILLY RESOURCE: SHIRLEY LILLY REASON FOR APPOINTMENT 1. W/C, BACK HISTORY OF PRESENT ILLNESS HISTORY OF PRESENT ILLNESS: PAIN THE PATIENT DESCRIBES THE PAIN... THE PATIENT DESCRIBES THE PAIN... THE PATIENT DESCRIBES THE PAIN... THE PATIENT DESCRIBES THE PAIN... THE PATIENT DESCRIBES THE PAIN... THE PATIENT DESCRIBES THE PAIN... THE PATIENT DESCRIBES THE PAIN... THE PATIENT DESCRIBES THE PAIN... THE PATIENT DESCRIBES THE PAIN... THE PATIENT DESCRIBES THE PAIN... THE PATIENT DESCRIBES THE PAIN... 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 RATING PAIN VAS 9/10.PAIN IS LOCATED ACROSS LOW BACK AND RADIATES DOWN LEFT LEG.FINDS CURRENT CHRONIC PAIN MEDICATION EFFECTIVE AT REDUCING PAIN AND KEEPING HER COMFORTABLECURRENT PAIN MEDICINE REGIMEN:LYRICA 150MG TID,METHCARBOMOL 750MG TID,[id number] AT HS,,HYDROCODONE 10/325 Q8H PRN AND MORPHINE 60MG ER.DENIES SIDE EFFECTS.DESCRIBES PAIN CONSTANT LBP WITH INTERMITTENT SHOOTING LEFT POSTERIOR LEG PAIN.PAIN IS AGGREVATED WITH PROLONGED SITTING AND WALKING.HAVING AN INCREASE IN LOW BACK PAIN AND LEFT LEG PAIN OVER THE PAST 2 MONTHS.OXYCODONE 5MG IS NOT HELPING VERY MUCH.DISCUSSED MEDICATION OPTIONS. FALL RISK SCREENING: SCREENING :NO FALLS REPORTED IN THE LAST YEAR CURRENT MEDICATIONS TAKING SPIRONOLACTONE 100 MG TABLET 2 TABLET WITH FOOD ORALLY ONCE A DAY TAKING FUROSEMIDE 80 MG TABLET 1 1/2 TABLET ORALLY ONCE A DAY TAKING PROAIR HFA 108 (90 BASE) MCG/ACT AEROSOL SOLUTION 2 PUFFS NEEDED INHALATION QID PRN TAKING FEXOFENADINE HCL 60 MG CAPSULE ORALLY TAKING CHOLESTYRAMINE 4 GM PACKET 1 PACKET MIXED WITH WATER OR NON-CARBONATED DRINK ORALLY TWICE A DAY TAKING AMITRIPTYLINE HCL 75 MG TABLET 1 TABLET ORALLY QHS TAKING TIZANIDINE HCL 4 MG TABLET 2 ORALLY BEFORE BEDTIME PRN TAKING LYRICA 150 MG CAPSULE 1 CAPSULE ORALLY Q8H MDD3 TAKING METHOCARBAMOL 750 MG TABLET 1 TABLET ORALLY EVERY 8 HRS NEEDED FOR SPASMS AND PAIN MDD3 TAKING OXYCODONE HCL 5 MG TABLET 1 TABLET NEEDED ORALLY Q8H PRN MDD3 TAKING MORPHINE SULFATE ER 30 MG TABLET EXTENDED RELEASE 1 TABLET ORALLY DAILY MDD1 TAKING ANORO ELLIPTA 62.5-25 MCG/INH AEROSOL POWDER BREATH ACTIVATED 1 PUFF INHALATION ONCE A DAY NOT-TAKING VITAMIN D 99864 UNIT CAPSULE 1 CAPSULE ORALLY NOT-TAKING VITAMIN D (CHOLECALCIFEROL) 1000 UNIT TABLET 2 TABLET ORALLY ONCE A DAY MEDICATION LIST REVIEWED AND RECONCILED WITH THE PATIENT PAST MEDICAL HISTORY SEIZURE MIGRAINE FIBROMYALGIA ALLERGIES KEFLEX: RASH - ALLERGY NYSTATIN: RASH - ALLERGY MYSOLINE: RASH - ALLERGY LATEX (FOR ALLERGY USE ONLY): RASH - ALLERGY BEE STINGS: ANAPHYLAXIS - ALLERGY ZOLOFT: RASH - ALLERGY SURGICAL HISTORY 10/1989 GALL BLADDER REMOVED 2006 BLADDER SLING 2008 FAMILY HISTORY FATHER: MOTHER: , DIAGNOSED WITH HEART DISEASE, OTHER SOCIAL HISTORY GENERAL: TOBACCO USE ARE YOU A:CURRENT SMOKER ARE YOU INTERESTED IN QUITTING?THINKING ABOUT QUITTING COUNSELED THE PATIENT ON SMOKING CESSATION, EDUCATION MBEIVOXS29/18/2018 HOW MANY CIGARETTES A DAY DO YOU SMOKE?11-20 PATIENT COUNSELED ON THE DANGERS OF TOBACCO USE AND URGED TO QUIT:06/29/2018 SMOKING CESSATION INFORMATION GIVEN06/30/2017 PAIN CLINIC PFS, CLERGY, PUBLIC HEALTH REFERRALS WAS THE PROVIDER NOTIFIED OF ANY PERTINENT INFO?YES HAS THE PATIENT BEEN EDUCATED REGARDING HIS/HER PLAN OF CARE?YES USES TENS UNIT DOESNT USE HEAT/COLD. ALONG WITH MEDS HAS THE PATIENT BEEN EDUCATED REGARDING PAIN, THE RISK FOR PAIN, THE IMPORTANCE OF EFFECTIVE PAIN MANAGEMENT, AND THE PAIN ASSESSMENT PROCESS?YES LATEX QUESTIONNAIRE LATEX ALLERGY : HAVE YOU EVER DEVELOPED ANY TYPE OF REACTION AFTER HANDLING LATEX PRODUCTS SUCH RUBBER GLOVES, CONDOMS, DIAPHRAGMS, BALLOONS, SOCKS, OR UNDERWEAR?YES DATE ASKED : 08/24/2018 CAFFEINE CAFFEINE USE?YES HOW OFTEN AND HOW MUCH? DAILY ADVANCE DIRECTIVE ADVANCE DIRECTIVE DISCUSSED WITH PATIENT:YES PT DOES NOT HAVE HCP AND PT DECLINED INFORMATION OR ASSISTANCE AT THIS TIME 08/24/18 CONGREGATIONAL [id number] YAZDANISM LANGUAGE LANGUAGES SPOKEN:CHADIAN ALCOHOL SCREENING DID YOU HAVE A DRINK CONTAINING ALCOHOL IN THE PAST YEAR?NO POINTS0 INTERPRETATIONNEGATIVE RECREATIONAL DRUG USE DRUG USE?NO LEARNING BARRIERS / SPECIAL NEEDS BARRIERS TO LEARNING?NO HEARING IMPAIRED?NO VISION IMPAIRED?NO COGNITIVELY IMPAIRED?NO READINESS TO LEARN?YES LEARNING PREFERENCES?NO SPECIAL DEVICES?NO BILL POSTER INSTALLER NEEDED?NO REVIEWED WITH PT 08/24/18 0853 BV. HOSPITALIZATION/MAJOR DIAGNOSTIC PROCEDURE SURGERIES REVIEW OF SYSTEMS REVIEWED BY: PROVIDER: SHIRLEY HUBBARD . CONSTITUTIONAL: ANY CHANGE IN YOUR MEDICAL CONDITION? YES, DIAGNOSED WITH CANCER ON JULY 24. STATES SHE STILL NEEDS TO GET BIOPSY DONE TO DETERMINE TYPE. . CHILLS NO . FEVER NO . INFECTION: DO YOU HAVE NEW INFECTIONS? NO . DO YOU HAVE HISTORY OF MRSA? NO . MUSCULOSKELETAL: ANY NEW PATTERNS OF PAIN OR NUMBNESS? YES, PT HAS NOTICED INCREASE IN PAINOVER THE PAST COUPLE MONTHS . GASTROENTEROLOGY: ANY NEW CHANGE IN BOWEL CONTROL? NO . GENITOURINARY: ANY NEW CHANGE IN BLADDER CONTROL? NO . IS THERE A CHANCE YOU COULD BE ? NO . HEMATOLOGY/LYMPH: DO YOU TAKE ANY BLOOD THINNERS? (FOR EXAMPLE- COUMADIN, PLAVIX, AGGRENOX, PLATEL, PRADAXA, OR XARELTO) NO . WHEN WAS YOUR LAST DOSE? DATE: TIME: . NEUROLOGY: HAVE YOU FALLEN IN THE PAST 12 MONTHS? NO . ANY NEW EXTREMITY NUMBNESS OR WEAKNESS? NO . CARDIOLOGY: DO YOU HAVE A PACEMAKER OR DEFIBRILLATOR? NO . RESPIRATORY: HAVE YOU BEEN SICK IN THE PAST WEEK? NO . FEVER NO . FLU LIKE SYMPTOMS? NO . COUGH NO . INTEGUMENTARY: DO YOU HAVE ANY RASHES OR OPEN SORES? NO . ALLERGIC/IMMUNO: ARE YOU ALLERGIC TO IV DYE? NO . ANY NEW ALLERGIES? NO . PSYCHIATRIC: DO YOU HAVE THOUGHTS OF HURTING YOURSELF OR SOMEONE ELSE? NO . ARE YOU ABUSED, NEGLECTED, OR IN AN UNSAFE ENVIRONMENT? NO . ENDOCRINOLOGY: ARE YOU DIABETIC? NO . OTHER: DO YOU NEED ANY PRESCRIPTIONS? YES, OXYCODONE, MORPHINE SULFATE ER . IF YES, PLEASE LIST: ____ . ANY NEW PROBLEMS WITH YOUR MEDICATIONS? NO . WHEN DID YOU LAST EAT? ____ . WHEN DID YOU LAST DRINK? ____ . WHAT DID YOU LAST DRINK? ____ . NAME OF PERSON DRIVING YOU HOME? ____ . DO YOU HAVE ANY OTHER QUESTIONS OR CONCERNS NO . VITAL SIGNS WT 128.7 LBS, HT 63 IN, BMI 22.80 INDEX, BP 120/65 MM HG, HR 83 /MIN, RR 16 /MIN, TEMP 98.3 F, OXYGEN SAT % 100%, REVIEWED BY: BV. EXAMINATION GENERAL EXAMINATION: GENERAL APPEARANCE:AWAKE,ALERT ,PLEAASANT . PSYCHAFFECT NORMAL . LUNGS:LUNG MOYER ARE CLEAR TO AUSCULTATION BILATERALLY. GOOD MOVEMENT OF AIR . HEART:S1, S2 IN A REGULAR RATE AND RHYTHM. NO SIGNIFICANT MURMURS, RUBS OR GALLOPS NOTED . ASSESSMENTS PROTRUSION OF INTERVERTEBRAL DISC OF LUMBOSACRAL REGION - M51.27 (PRIMARY) TREATMENT PROTRUSION OF INTERVERTEBRAL DISC OF LUMBOSACRAL REGION CONTINUE AMITRIPTYLINE HCL TABLET, 75 MG, 1 TABLET, ORALLY, QHS CONTINUE TIZANIDINE HCL TABLET, 4 MG, 2, ORALLY, BEFORE BEDTIME PRN CONTINUE LYRICA CAPSULE, 150 MG, 1 CAPSULE, ORALLY, Q8H MDD3 CONTINUE METHOCARBAMOL TABLET, 750 MG, 1 TABLET, ORALLY, EVERY 8 HRS NEEDED FOR SPASMS AND PAIN MDD3 CONTINUE MORPHINE SULFATE ER TABLET EXTENDED RELEASE, 30 MG, 1 TABLET, ORALLY, DAILY MDD1, 30 DAY(S), 30, REFILLS 0 INCREASE OXYCODONE HCL TABLET, 15 MG, 1 TABLET NEEDED, ORALLY, Q8H PRN MDD3, 30 DAY(S), 90, REFILLS 0 NOTES: ISTOP REGISTRY REVIEWED AND DEMONSTRATES COMPLLIANCE. (REF # [id number] ) BRINGS IN MEDICATIONS WHICH IS APPROPRIATE FOR WHAT WAS DISPENSED. RECENT URINE TOXICOLOGY REVIEWED. NO UNAUTHORIZED MEDICATIONS. NO ILLICIT SUBSTANCES AND PRESCRIBED MEDICATIONS WERE PRESENT. , RISKS AND BENEFITS OF NARCOTIC/OPIOD MEDICATIONS WERE REVIEWED WITH PATIENT - THIS INCLUDES BUT IS NOT LIMITED TO RISK OF DEPENDANCE/DEVELOPMENT OF ADDICTION, MOOD DISTURBANCE AND DEPRESSION, OSTEOPOROSIS, HORMONAL AND LABIDAL CHANGES, RESPIRATORY DEPRESSION AND . PATIENT IS ADVISED NOT TO DRIVE OR DRINK ALCOHOL WHILE ON THESE MEDICATIONS. PROCEDURES PN WORKMANS' COMP OPINION IN YOUR OPINION, WAS THE INCIDENT THAT THE PATIENT DESCRIBED THE COMPETENT MEDICAL CAUSE OF THIS INJURY/ILLNESS? YES ARE THE PATIENT'S COMPLAINTS CONSISTENT WITH HIS/HER HISTORY OF THE INJURY/ILLNESS? YES IS THE PATIENT'S HISTORY OF THE INJURY/ILLNESS CONSISTENT WITH YOUR OBJECTIVE FINDING? YES WHAT IS THE PERCENTAGE OF TEMPORARY IMPAIRMENT? MODERATE TO MARKED = 66.7% IS THE PATIENT WORKING? NO DOCTOR ON SITE: HOWARD VENEGAS MD PROCEDURE CODES FA211 ESTABILISHED PATIENT [facility] CHARGE DISPOSITION & COMMUNICATION FOLLOW UP 3 MONTHS ELECTRONICALLY SIGNED BY HAYDEE HERRERA ON 09/10/2018 AT 12:16 PM EDT DISCLAIMER : THIS IS A VISIT SUMMARY EXTRACTED FROM THE [employer] CHART. IT IS NOT A COPY OF THE [employer] PROGRESS NOTE. BRADLEY
== END ==
LOC: M PAIN 08:30
PROVIDERS: ATTEND Nurse Practitioner Family
DX: M51.27 Other intervertebral disc displacement, lumbosacral region (principal); R56.9 Unspecified convulsions; G43.909 Migraine, unspecified, not intractable, without status migrainosus; M79.7 Fibromyalgia; F17.210 Nicotine dependence, cigarettes, uncomplicated; C80.1 Malignant (primary) neoplasm, unspecified; Z79.51 Long term (current) use of inhaled steroids; Z79.891 Long term (current) use of opiate analgesic; Z79.899 Other long term (current) drug therapy; Z88.8 Allergy status to other drugs, medicaments and biological substances; Z91.030 Bee allergy status; Z91.040 Latex allergy status

== ENCOUNTER → 2019-02-05 | Outpatient (CLI) | payer OTHER | LOC: M PAIN 08:45 | PROVIDERS: ATTEND Nurse Practitioner Family | DX: M51.27 Other intervertebral disc displacement, lumbosacral region (principal); G40.909 Epilepsy, unspecified, not intractable, without status epilepticus; G43.909 Migraine, unspecified, not intractable, without status migrainosus; M79.7 Fibromyalgia; F17.210 Nicotine dependence, cigarettes, uncomplicated; Z88.1 Allergy status to other antibiotic agents; Z88.8 Allergy status to other drugs, medicaments and biological substances; Z91.030 Bee allergy status; Z91.040 Latex allergy status; Z79.51 Long term (current) use of inhaled steroids; Z79.891 Long term (current) use of opiate analgesic; Z79.899 Other long term (current) drug therapy ==

== ENCOUNTER → 2019-04-11 | Outpatient (CLI) | payer OTHER ==
--- NOTE | 2019-04-26 04:29 | ECWPNPC ---
PATIENT NAME: DAGO ASH : 1965 GENDER: FEMALE VISIT DATE: 04/11/2019 DISCHARGE DATE: 04/11/19 09 VISIT LOCKED DATE TIME: PHYSICIAN: SHIRLEY LILLY RESOURCE: SHIRLEY LILLY REASON FOR APPOINTMENT 1. W/C MED MGMNT HISTORY OF PRESENT ILLNESS HISTORY OF PRESENT ILLNESS: PAIN THE PATIENT DESCRIBES THE PAIN... 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 RATING PAIN VAS 7/10.PAIN IS LOCATED ACROSS LOW BACK AND RADIATES DOWN LEFT LEG.FINDS CURRENT CHRONIC PAIN MEDICATION EFFECTIVE AT REDUCING PAIN AND KEEPING HER COMFORTABLECURRENT PAIN MEDICINE REGIMEN:LYRICA 150MG TID,METHCARBOMOL 750MG TID,[id number] AT HS,,HYDROCODONE 10/325 Q8H PRN AND MORPHINE 60MG ER AND TIZANIDINE 6MG BID AND 4MG 2 TABLETS AT HS.DENIES SIDE EFFECTS.DESCRIBES PAIN CONSTANT LBP WITH INTERMITTENT SHOOTING LEFT POSTERIOR LEG PAIN.PAIN IS AGGREVATED WITH PROLONGED SITTING AND WALKING. FALL RISK SCREENING: SCREENING :NO FALLS REPORTED IN THE LAST YEAR CURRENT MEDICATIONS TAKING SPIRONOLACTONE 100 MG TABLET 2 TABLET WITH FOOD ORALLY ONCE A DAY TAKING FUROSEMIDE 80 MG TABLET 1 1/2 TABLET ORALLY ONCE A DAY TAKING PROAIR HFA 108 (90 BASE) MCG/ACT AEROSOL SOLUTION 2 PUFFS NEEDED INHALATION QID PRN TAKING FEXOFENADINE HCL 60 MG CAPSULE ORALLY TAKING CHOLESTYRAMINE 4 GM PACKET 1 PACKET MIXED WITH WATER OR NON-CARBONATED DRINK ORALLY TWICE A DAY TAKING ANORO ELLIPTA 62.5-25 MCG/INH AEROSOL POWDER BREATH ACTIVATED 1 PUFF INHALATION ONCE A DAY TAKING AMITRIPTYLINE HCL 75 MG TABLET 1 TABLET NEEDED ORALLY FOR SPASMS AND PAIN QHS TAKING LYRICA 150 MG CAPSULE 1 CAPSULE ORALLY Q8H MDD3 TAKING METHOCARBAMOL 750 MG TABLET 1 TABLET ORALLY EVERY 8 HRS NEEDED FOR SPASMS AND PAIN MDD3 TAKING TIZANIDINE HCL 6 MG CAPSULE 1 CAPSULE NEEDED ORALLY Q8H PRN DURING DAYTIME PRN TAKING TIZANIDINE HCL 4 MG TABLET 2 ORALLY BEFORE BEDTIME PRN TAKING MORPHINE SULFATE ER 30 MG TABLET EXTENDED RELEASE 1 TABLET ORALLY DAILY MDD1 TAKING OXYCODONE HCL 15 MG TABLET 1 TABLET NEEDED ORALLY Q8H PRN MDD3 MEDICATION LIST REVIEWED AND RECONCILED WITH THE PATIENT PAST MEDICAL HISTORY SEIZURE MIGRAINE FIBROMYALGIA 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 AN LUNGS ALLERGIES KEFLEX: RASH - ALLERGY NYSTATIN: RASH - ALLERGY MYSOLINE: RASH - ALLERGY LATEX (FOR ALLERGY USE ONLY): RASH - ALLERGY BEE STINGS: ANAPHYLAXIS - ALLERGY ZOLOFT: RASH - ALLERGY SURGICAL HISTORY 10/1989 GALL BLADDER REMOVED 2006 BLADDER SLING 2008 FAMILY HISTORY FATHER: MOTHER: , DIAGNOSED WITH UNSPECIFIED HEART DISEASE, OTHER SPECIFIED CONDITIONS INFLUENCING HEALTH STATUS SOCIAL HISTORY GENERAL: TOBACCO USE ARE YOU A:CURRENT SMOKER ARE YOU INTERESTED IN QUITTING?THINKING ABOUT QUITTING COUNSELED THE PATIENT ON SMOKING CESSATION, EDUCATION [id number]/08/2019 HOW MANY CIGARETTES A DAY DO YOU SMOKE?- PATIENT COUNSELED ON THE DANGERS OF TOBACCO USE AND URGED TO QUIT:04/11/2019 SMOKING CESSATION INFORMATION GIVEN06/30/2017 OTHERS AT HOME: SPOUSE, CHILD. HOUSING: OWNS HOME. EDUCATION LEVEL OF EDUCATION:NOT FINISHED HIGH SCHOOL DIET: NO ADDED SALT. LANGUAGE LANGUAGES SPOKEN:FRENCH RECREATIONAL DRUG USE DRUG USE?NO EXERCISE: NONE. LEARNING BARRIERS / SPECIAL NEEDS BARRIERS TO LEARNING?NO HEARING IMPAIRED?NO VISION IMPAIRED?NO COGNITIVELY IMPAIRED?NO READINESS TO LEARN?YES LEARNING PREFERENCES?NO SPECIAL DEVICES?NO EXPERIENCE SPECIALIST NEEDED?NO PAIN CLINIC PFS, CLERGY, PUBLIC HEALTH REFERRALS WAS THE PROVIDER NOTIFIED OF ANY PERTINENT INFO?YES HAS THE PATIENT BEEN EDUCATED REGARDING HIS/HER PLAN OF CARE?YES USES TENS UNIT DOESNT USE HEAT/COLD. ALONG WITH MEDS HAS THE PATIENT BEEN EDUCATED REGARDING PAIN, THE RISK FOR PAIN, THE IMPORTANCE OF EFFECTIVE PAIN MANAGEMENT, AND THE PAIN ASSESSMENT PROCESS?YES LATEX QUESTIONNAIRE LATEX ALLERGY : HAVE YOU EVER DEVELOPED ANY TYPE OF REACTION AFTER HANDLING LATEX PRODUCTS SUCH RUBBER GLOVES, CONDOMS, DIAPHRAGMS, BALLOONS, SOCKS, OR UNDERWEAR?YES - PLEASE INDICATE :RUBBER GLOVES LATEX ALLERGY : HAVE YOU EVER DEVELOPED ANY TYPE OF REACTION DURING OR AFTER DENTAL APPOINTMENT, VAGINAL/RECTAL EXAMINATION, SURGICAL PROCEDURE, OR ANY OTHER EXPOSURE?NO LATEX RISK : HAVE YOU EVER HAD ANY DIFFICULTY BREATHING OR HIVES AFTER EATING OR HANDLING ANY FRUITS, OR VEGETABLES; SUCH KIWI, BANANAS, STONE FRUITS, OR CHESTNUTSNO LATEX RISK : DO YOU HAVE A PREVIOUS PERSONAL HISTORY OF MORE THAN NINE SURGERIES, SPINA BIFIDA, OR REPEATED CATHERIZATIONS? NO LATEX RISK : ARE YOU FREQUENTLY EXPOSED TO LATEX PRODUCTS IN YOUR OCCUPATION?NO DATE ASKED : 04/11/2019 CAFFEINE CAFFEINE USE?YES HOW OFTEN AND HOW MUCH? DAILY ADVANCE DIRECTIVE ADVANCE DIRECTIVE DISCUSSED WITH PATIENT:YES PT DOES NOT HAVE HCP AND PT DECLINED INFORMATION OR ASSISTANCE AT THIS TIME 08/24/18 PT. IS DOING A HEALTH CARE PROXY WITH HER PCP- ORTHODOXY [id number] SABIANIST MARITAL STATUS: . ALCOHOL SCREENING DID YOU HAVE A DRINK CONTAINING ALCOHOL IN THE PAST YEAR?NO POINTS0 INTERPRETATIONNEGATIVE OCCUPATION: DISABLED. REVIEWED WITH PT 08/24/18 0853 BVREVIEWED WITH PATIENT 04-11-19 DS. HOSPITALIZATION/MAJOR DIAGNOSTIC PROCEDURE SURGERIES REVIEW OF SYSTEMS REVIEWED BY: PROVIDER: SHIRLEY HUBBARD . CONSTITUTIONAL: ANY CHANGE IN YOUR MEDICAL CONDITION? NO . CHILLS NO . FEVER NO . INFECTION: DO YOU HAVE NEW INFECTIONS? NO . DO YOU HAVE HISTORY OF MRSA? NO . MUSCULOSKELETAL: ANY NEW PATTERNS OF PAIN OR NUMBNESS? NO . GASTROENTEROLOGY: ANY NEW CHANGE IN BOWEL CONTROL? NO . GENITOURINARY: ANY NEW CHANGE IN BLADDER CONTROL? NO . IS THERE A CHANCE YOU COULD BE ? NO . HEMATOLOGY/LYMPH: DO YOU TAKE ANY BLOOD THINNERS? (FOR EXAMPLE- COUMADIN, PLAVIX, AGGRENOX, PLATEL, PRADAXA, OR XARELTO) NO . WHEN WAS YOUR LAST DOSE? DATE: TIME: . NEUROLOGY: HAVE YOU FALLEN IN THE PAST 12 MONTHS? YES, PT STATES THAT SHE FELL WHILE AT HOME, PT WENT TO ED, FRACTURED RIB. DS . ANY NEW EXTREMITY NUMBNESS OR WEAKNESS? NO . CARDIOLOGY: DO YOU HAVE A PACEMAKER OR DEFIBRILLATOR? NO . RESPIRATORY: HAVE YOU BEEN SICK IN THE PAST WEEK? NO . FEVER NO . FLU LIKE SYMPTOMS? NO . COUGH NO . INTEGUMENTARY: DO YOU HAVE ANY RASHES OR OPEN SORES? NO . ALLERGIC/IMMUNO: ARE YOU ALLERGIC TO IV DYE? NO . ANY NEW ALLERGIES? NO . PSYCHIATRIC: DO YOU HAVE THOUGHTS OF HURTING YOURSELF OR SOMEONE ELSE? NO . ARE YOU ABUSED, NEGLECTED, OR IN AN UNSAFE ENVIRONMENT? NO . ENDOCRINOLOGY: ARE YOU DIABETIC? NO . OTHER: DO YOU NEED ANY PRESCRIPTIONS? YES, REFILL OXYCODONE, MORPHINE ER, TIZANIDINE, AMITRITYLINE, METHOCARBOMOL, . IF YES, PLEASE LIST: ____ . ANY NEW PROBLEMS WITH YOUR MEDICATIONS? NO . WHEN DID YOU LAST EAT? ____ . WHEN DID YOU LAST DRINK? ____ . WHAT DID YOU LAST DRINK? ____ . NAME OF PERSON DRIVING YOU HOME? ____ . DO YOU HAVE ANY OTHER QUESTIONS OR CONCERNS NO . VITAL SIGNS WT 149.4 LBS, HT 63 IN, BMI 26.46 INDEX, BP 111/53 MM HG, HR 70 /MIN, RR 16 /MIN, TEMP 97.1 F, OXYGEN SAT % 100%, SAFE IN ENV? (Y/N) Y, NA INITIALS AW 0856, REVIEWED BY: GAYE. EXAMINATION GENERAL EXAMINATION: GENERALAWAKE,ALERT ,PLEAASANT . PSYCHAFFECT NORMAL . LUNGS:LUNG MOYER ARE CLEAR TO AUSCULTATION BILATERALLY. GOOD MOVEMENT OF AIR . HEART:S1, S2 IN A REGULAR RATE AND RHYTHM. NO SIGNIFICANT MURMURS, RUBS OR GALLOPS NOTED . ASSESSMENTS PROTRUSION OF INTERVERTEBRAL DISC OF LUMBOSACRAL REGION - M51.27 (PRIMARY) TREATMENT PROTRUSION OF INTERVERTEBRAL DISC OF LUMBOSACRAL REGION REFILL AMITRIPTYLINE HCL TABLET, 75 MG, 1 TABLET NEEDED, ORALLY FOR SPASMS AND PAIN, QHS, 30 DAYS, 30, REFILLS 5 CONTINUE LYRICA CAPSULE, 150 MG, 1 CAPSULE, ORALLY, Q8H MDD3 REFILL METHOCARBAMOL TABLET, 750 MG, 1 TABLET, ORALLY, EVERY 8 HRS NEEDED FOR SPASMS AND PAIN MDD3, 30 DAYS, 90, REFILLS 5 REFILL TIZANIDINE HCL CAPSULE, 6 MG, 1 CAPSULE NEEDED, ORALLY, Q8H PRN DURING DAYTIME PRN, 30 DAYS, 60, REFILLS 2 REFILL TIZANIDINE HCL TABLET, 4 MG, 2, ORALLY, BEFORE BEDTIME PRN, 30 DAY(S), 60, REFILLS 2 REFILL MORPHINE SULFATE ER TABLET EXTENDED RELEASE, 30 MG, 1 TABLET, ORALLY, DAILY MDD1, 30 DAYS, 30, REFILLS 0 REFILL OXYCODONE HCL TABLET, 15 MG, 1 TABLET NEEDED, ORALLY, Q8H PRN MDD3, 30 DAY(S), 90, REFILLS 0 NOTES: ISTOP REGISTRY REVIEWED AND DEMONSTRATES COMPLLIANCE. BRINGS IN MEDICATIONS WHICH IS APPROPRIATE FOR WHAT WAS DISPENSED. RECENT URINE TOXICOLOGY REVIEWED. NO UNAUTHORIZED MEDICATIONS. NO ILLICIT SUBSTANCES AND PRESCRIBED MEDICATIONS WERE PRESENT. , RISKS OF NARCOTIC/OPIOD MEDICATIONS INCLUDES BUT IS NOT LIMITED TO RISK OF DEPENDANCE/DEVELOPMENT OF ADDICTION, MOOD DISTURBANCE AND DEPRESSION, OSTEOPOROSIS, HORMONAL AND LABIDAL CHANGES, RESPIRATORY DEPRESSION AND . PATIENT IS ADVISED NOT TO DRIVE OR DRINK ALCOHOL WHILE ON THESE MEDICATIONS. PROCEDURES PN WORKMANS' COMP OPINION IN YOUR OPINION, WAS THE INCIDENT THAT THE PATIENT DESCRIBED THE COMPETENT MEDICAL CAUSE OF THIS INJURY/ILLNESS? YES ARE THE PATIENT'S COMPLAINTS CONSISTENT WITH HIS/HER HISTORY OF THE INJURY/ILLNESS? YES IS THE PATIENT'S HISTORY OF THE INJURY/ILLNESS CONSISTENT WITH YOUR OBJECTIVE FINDING? YES WHAT IS THE PERCENTAGE OF TEMPORARY IMPAIRMENT? MODERATE TO MARKED = 66.7% IS THE PATIENT WORKING? NO DOCTOR ON SITE: HOWARD VENEGAS MD PROCEDURE CODES FA211 ESTABILISHED PATIENT [facility] CHARGE DISPOSITION & COMMUNICATION FOLLOW UP 3 MONTHS (REASON: W/C MED MGMNT) ELECTRONICALLY SIGNED BY HAYDEE HERRERA ON 04/25/2019 AT 10:46 AM EST DISCLAIMER : THIS IS A VISIT SUMMARY EXTRACTED FROM THE [employer] CHART. IT IS NOT A COPY OF THE [employer] PROGRESS NOTE. BRADLEY
== END ==
LOC: M PAIN 09:00
PROVIDERS: ATTEND Nurse Practitioner Family
DX: M51.27 Other intervertebral disc displacement, lumbosacral region (principal); G43.909 Migraine, unspecified, not intractable, without status migrainosus; M79.7 Fibromyalgia; F17.210 Nicotine dependence, cigarettes, uncomplicated; Z88.1 Allergy status to other antibiotic agents; Z88.8 Allergy status to other drugs, medicaments and biological substances; Z91.030 Bee allergy status; Z91.040 Latex allergy status; Z79.51 Long term (current) use of inhaled steroids; Z79.891 Long term (current) use of opiate analgesic; Z79.899 Other long term (current) drug therapy

== ENCOUNTER → 2019-07-11 | Outpatient (CLI) | payer OTHER ==
--- NOTE | 2019-07-12 06:00 | ECWPNPC ---
PATIENT NAME: DAGO ASH : 1965 GENDER: FEMALE VISIT DATE: 07/11/2019 DISCHARGE DATE: 07/11/19932 VISIT LOCKED DATE TIME: PHYSICIAN: SHIRLEY LILLY RESOURCE: SHIRLEY LILLY REASON FOR APPOINTMENT 1. W/C MED MGMNT HISTORY OF PRESENT ILLNESS HISTORY OF PRESENT ILLNESS: PAIN THE PATIENT DESCRIBES THE PAIN... 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 RATING PAIN VAS 7/10.PAIN IS LOCATED ACROSS LOW BACK AND RADIATES DOWN LEFT LEG.FINDS CURRENT CHRONIC PAIN MEDICATION EFFECTIVE AT REDUCING PAIN AND KEEPING HER COMFORTABLECURRENT PAIN MEDICINE REGIMEN:LYRICA 150MG TID,METHCARBOMOL 750MG TID,[id number] AT HS,,HYDROCODONE 10/325 Q8H PRN AND MORPHINE 60MG ER AND TIZANIDINE 6MG BID AND 4MG 2 TABLETS AT HS.DENIES SIDE EFFECTS. FALL RISK SCREENING: SCREENING :NO FALLS REPORTED IN THE LAST YEAR CURRENT MEDICATIONS TAKING SPIRONOLACTONE 100 MG TABLET 2 TABLET WITH FOOD ORALLY ONCE A DAY TAKING FUROSEMIDE 80 MG TABLET 1 1/2 TABLET ORALLY ONCE A DAY TAKING PROAIR HFA 108 (90 BASE) MCG/ACT AEROSOL SOLUTION 2 PUFFS NEEDED INHALATION QID PRN TAKING FEXOFENADINE HCL 60 MG CAPSULE ORALLY TAKING CHOLESTYRAMINE 4 GM PACKET 1 PACKET MIXED WITH WATER OR NON-CARBONATED DRINK ORALLY TWICE A DAY TAKING ANORO ELLIPTA 62.5-25 MCG/INH AEROSOL POWDER BREATH ACTIVATED 1 PUFF INHALATION ONCE A DAY TAKING AMITRIPTYLINE HCL 75 MG TABLET 1 TABLET NEEDED ORALLY FOR SPASMS AND PAIN QHS TAKING METHOCARBAMOL 750 MG TABLET 1 TABLET ORALLY EVERY 8 HRS NEEDED FOR SPASMS AND PAIN MDD3 TAKING TIZANIDINE HCL 6 MG CAPSULE 1 CAPSULE NEEDED ORALLY Q8H PRN DURING DAYTIME PRN TAKING TIZANIDINE HCL 4 MG TABLET 2 ORALLY BEFORE BEDTIME PRN TAKING LYRICA 150 MG CAPSULE 1 CAPSULE ORALLY Q8H MDD3 TAKING MORPHINE SULFATE ER 30 MG TABLET EXTENDED RELEASE 1 TABLET ORALLY DAILY MDD1 TAKING OXYCODONE HCL 15 MG TABLET 1 TABLET NEEDED ORALLY Q8H PRN MDD3 MEDICATION LIST REVIEWED AND RECONCILED WITH THE PATIENT PAST MEDICAL HISTORY SEIZURE MIGRAINE FIBROMYALGIA 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 AN LUNGS ALLERGIES KEFLEX: RASH - ALLERGY NYSTATIN: RASH - ALLERGY MYSOLINE: RASH - ALLERGY LATEX (FOR ALLERGY USE ONLY): RASH - ALLERGY BEE STINGS: ANAPHYLAXIS - ALLERGY ZOLOFT: RASH - ALLERGY SURGICAL HISTORY 10/1989 GALL BLADDER REMOVED 2006 BLADDER SLING 2008 FAMILY HISTORY FATHER: MOTHER: , DIAGNOSED WITH UNSPECIFIED HEART DISEASE, OTHER SPECIFIED CONDITIONS INFLUENCING HEALTH STATUS SOCIAL HISTORY GENERAL: TOBACCO USE ARE YOU A:CURRENT SMOKER ARE YOU INTERESTED IN QUITTING?THINKING ABOUT QUITTING COUNSELED THE PATIENT ON SMOKING CESSATION, EDUCATION [id number]/12/2020 HOW MANY CIGARETTES A DAY DO YOU SMOKE?11-20 HOW OFTEN DO YOU SMOKE CIGARETTES?EVERY DAY PATIENT COUNSELED ON THE DANGERS OF TOBACCO USE AND URGED TO QUIT:07/11/2019 SMOKING CESSATION INFORMATION GIVEN06/30/2017 OTHERS AT HOME: SPOUSE, CHILD. HOUSING: OWNS HOME. EDUCATION LEVEL OF EDUCATION:NOT FINISHED HIGH SCHOOL DIET: NO ADDED SALT. LANGUAGE LANGUAGES SPOKEN:CROATIAN RECREATIONAL DRUG USE DRUG USE?NO EXERCISE: NONE. 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 ALONG WITH MEDS HAS THE PATIENT BEEN EDUCATED REGARDING PAIN, THE RISK FOR PAIN, THE IMPORTANCE OF EFFECTIVE PAIN MANAGEMENT, AND THE PAIN ASSESSMENT PROCESS?YES LATEX QUESTIONNAIRE LATEX ALLERGY : HAVE YOU EVER DEVELOPED ANY TYPE OF REACTION AFTER HANDLING LATEX PRODUCTS SUCH RUBBER GLOVES, CONDOMS, DIAPHRAGMS, BALLOONS, SOCKS, OR UNDERWEAR?YES - PLEASE INDICATE :RUBBER GLOVES LATEX ALLERGY : HAVE YOU EVER DEVELOPED ANY TYPE OF REACTION DURING OR AFTER DENTAL APPOINTMENT, VAGINAL/RECTAL EXAMINATION, SURGICAL PROCEDURE, OR ANY OTHER EXPOSURE?NO LATEX RISK : HAVE YOU EVER HAD ANY DIFFICULTY BREATHING OR HIVES AFTER EATING OR HANDLING ANY FRUITS, OR VEGETABLES; SUCH KIWI, BANANAS, STONE FRUITS, OR CHESTNUTSNO LATEX RISK : DO YOU HAVE A PREVIOUS PERSONAL HISTORY OF MORE THAN NINE SURGERIES, SPINA BIFIDA, OR REPEATED CATHERIZATIONS? NO LATEX RISK : ARE YOU FREQUENTLY EXPOSED TO LATEX PRODUCTS IN YOUR OCCUPATION?NO DATE ASKED : 04/11/2019 CAFFEINE CAFFEINE USE?YES HOW OFTEN AND HOW MUCH? DAILY ADVANCE DIRECTIVE ADVANCE DIRECTIVE DISCUSSED WITH PATIENT:YES HCP - MATTIE ASH SABIANISM [id number] DRUZE MARITAL STATUS: . ALCOHOL SCREENING DID YOU HAVE A DRINK CONTAINING ALCOHOL IN THE PAST YEAR?NO POINTS0 INTERPRETATIONNEGATIVE OCCUPATION: DISABLED. HOSPITALIZATION/MAJOR DIAGNOSTIC PROCEDURE SURGERIES REVIEW OF SYSTEMS REVIEWED BY: PROVIDER: SHIRLEY HUBBARD . CONSTITUTIONAL: ANY CHANGE IN YOUR MEDICAL CONDITION? NO . CHILLS NO . FEVER NO . INFECTION: DO YOU HAVE NEW INFECTIONS? NO . DO YOU HAVE HISTORY OF MRSA? NO . MUSCULOSKELETAL: ANY NEW PATTERNS OF PAIN OR NUMBNESS? NO . GASTROENTEROLOGY: ANY NEW CHANGE IN BOWEL CONTROL? NO . GENITOURINARY: ANY NEW CHANGE IN BLADDER CONTROL? NO . IS THERE A CHANCE YOU COULD BE ? NO . HEMATOLOGY/LYMPH: DO YOU TAKE ANY BLOOD THINNERS? (FOR EXAMPLE- COUMADIN, PLAVIX, AGGRENOX, PLATEL, PRADAXA, OR XARELTO) NO . WHEN WAS YOUR LAST DOSE? DATE: TIME: . NEUROLOGY: HAVE YOU FALLEN IN THE PAST 12 MONTHS? YES, PRIOR TO LAST VISIT, DISCUSSED AT PREVIOUS VISIT . ANY NEW EXTREMITY NUMBNESS OR WEAKNESS? YES, RIGHT LEG EXTREMELY WEAK - CANNOT MOVE IT WELL ON HER OWN . CARDIOLOGY: DO YOU HAVE A PACEMAKER OR DEFIBRILLATOR? NO . RESPIRATORY: HAVE YOU BEEN SICK IN THE PAST WEEK? NO . FEVER NO . FLU LIKE SYMPTOMS? NO . COUGH NO . INTEGUMENTARY: DO YOU HAVE ANY RASHES OR OPEN SORES? NO . ALLERGIC/IMMUNO: ARE YOU ALLERGIC TO IV DYE? NO . ANY NEW ALLERGIES? NO . PSYCHIATRIC: DO YOU HAVE THOUGHTS OF HURTING YOURSELF OR SOMEONE ELSE? NO . ARE YOU ABUSED, NEGLECTED, OR IN AN UNSAFE ENVIRONMENT? NO . ENDOCRINOLOGY: ARE YOU DIABETIC? NO . OTHER: DO YOU NEED ANY PRESCRIPTIONS? YES . IF YES, PLEASE LIST: ____TIZANIDINE 4 MG AND 6MG, MORPHINE ER, OXYCODONE, LYRICA . ANY NEW PROBLEMS WITH YOUR MEDICATIONS? NO . WHEN DID YOU LAST EAT? ____ . WHEN DID YOU LAST DRINK? ____ . WHAT DID YOU LAST DRINK? ____ . NAME OF PERSON DRIVING YOU HOME? ____ . DO YOU HAVE ANY OTHER QUESTIONS OR CONCERNS NO . VITAL SIGNS WT 155.6 LBS, HT 63 IN, BMI 27.56 INDEX, BP 138/65 MM HG, HR 82 /MIN, RR 18 /MIN, TEMP 98.0 F, OXYGEN SAT % 97%, SAFE IN ENV? (Y/N) YES, REVIEWED BY: MARCIE. EXAMINATION GENERAL EXAMINATION: GENERALAWAKE,ALERT ,PLEAASANT . PSYCHAFFECT NORMAL . LUNGS:LUNG MOYER ARE CLEAR TO AUSCULTATION BILATERALLY. GOOD MOVEMENT OF AIR . HEART:S1, S2 IN A REGULAR RATE AND RHYTHM. NO SIGNIFICANT MURMURS, RUBS OR GALLOPS NOTED . ASSESSMENTS PROTRUSION OF INTERVERTEBRAL DISC OF LUMBOSACRAL REGION - M51.27 (PRIMARY) TREATMENT PROTRUSION OF INTERVERTEBRAL DISC OF LUMBOSACRAL REGION REFILL TIZANIDINE HCL CAPSULE, 6 MG, 1 CAPSULE NEEDED, ORALLY, Q8H PRN DURING DAYTIME PRN, 30 DAYS, 60, REFILLS 2 REFILL TIZANIDINE HCL TABLET, 4 MG, 2, ORALLY, BEFORE BEDTIME PRN, 30 DAY(S), 60, REFILLS 2 REFILL LYRICA CAPSULE, 150 MG, 1 CAPSULE, ORALLY, Q8H MDD3, 30 DAYS, 90, REFILLS 2 REFILL MORPHINE SULFATE ER TABLET EXTENDED RELEASE, 30 MG, 1 TABLET, ORALLY, DAILY MDD1, 30 DAYS, 30, REFILLS 0 REFILL OXYCODONE HCL TABLET, 15 MG, 1 TABLET NEEDED, ORALLY, Q8H PRN MDD3, 30 DAY(S), 90, REFILLS 0 PROCEDURES PN WORKMANS' COMP OPINION IN YOUR OPINION, WAS THE INCIDENT THAT THE PATIENT DESCRIBED THE COMPETENT MEDICAL CAUSE OF THIS INJURY/ILLNESS? YES ARE THE PATIENT'S COMPLAINTS CONSISTENT WITH HIS/HER HISTORY OF THE INJURY/ILLNESS? YES IS THE PATIENT'S HISTORY OF THE INJURY/ILLNESS CONSISTENT WITH YOUR OBJECTIVE FINDING? YES WHAT IS THE PERCENTAGE OF TEMPORARY IMPAIRMENT? MODERATE TO MARKED = 66.7% IS THE PATIENT WORKING? NO DOCTOR ON SITE: HOWARD VENEGAS MD PROCEDURE CODES FA211 ESTABILISHED PATIENT [facility] FACILITY CHARGE DISPOSITION & COMMUNICATION FOLLOW UP 3 MONTHS (REASON: 3 MOS W/C/MED MGMNT) ELECTRONICALLY SIGNED BY HYADEE HERRERA ON 07/11/2019 AT 03:32 PM EDT DISCLAIMER : THIS IS A VISIT SUMMARY EXTRACTED FROM THE [employer] CHART. IT IS NOT A COPY OF THE [employer] PROGRESS NOTE. BRADLEY
== END ==
LOC: M PAIN 09:00
PROVIDERS: ATTEND Nurse Practitioner Family
DX: M51.27 Other intervertebral disc displacement, lumbosacral region (principal); F17.210 Nicotine dependence, cigarettes, uncomplicated; Z79.891 Long term (current) use of opiate analgesic; Z79.899 Other long term (current) drug therapy; Z88.8 Allergy status to other drugs, medicaments and biological substances; Z91.030 Bee allergy status; Z91.040 Latex allergy status

== ENCOUNTER → 2019-10-11 | Outpatient (CLI) | payer OTHER ==
--- NOTE | 2019-10-15 05:17 | ECWPNPC ---
PATIENT NAME: DAGO ASH : 1965 GENDER: FEMALE VISIT DATE: 10/11/2019 DISCHARGE DATE: 10/11/19 09 VISIT LOCKED DATE TIME: PHYSICIAN: SHIRLEY LILLY RESOURCE: SHIRLEY LILLY REASON FOR APPOINTMENT 1. W/C MED MGMNT; [phone] HISTORY OF PRESENT ILLNESS GENERAL: -. FALL RISK SCREENING: SCREENING :NO FALLS REPORTED IN THE LAST YEAR PAIN SCREENING: PATIENT HAS A COMPLAINT OF ACUTE OR CHRONIC PAIN :YES 10/10/19 INTENSITY OF PAIN (SCALE OF 1 TO 10):7 WHAT DOES YOUR PAIN FEEL LIKE:ACHING, BURNING, INTERMITTENT, SHARP, STABBING, THROBBING, SHOOTING PAIN IS INCREASED BY: BIKE RIDES PAIN IS DECREASED BY: RESTING NURSING NOTE: -. PAIN CENTER INTAKE QUESTIONS: DO YOU HAVE A HISTORY OF MRSA? :NO DO YOU TAKE A BLOOD THINNERS? :NO DO YOU HAVE ANY BLEEDING DISORDERS? :NO ANY NEW NUMBNESS OR WEAKNESS IN YOUR LEGS OR ARMS? :NO ANY PACEMAKER,DEFIBRILLATOR, OR DORSAL COLUMN STIMULATOR? :NO DO YOU HAVE ANY RASHES OR OPEN SORES? :NO ARE YOU ALLERGIC TO IV DYE? :NO ARE YOU DIABETIC? :NO ANY NEW PROBLEMS WITH YOUR MEDICATIONS? :NO HAVE YOU RECEIVED A VACCINE IN THE PAST 30 DAYS? :NO DO YOU PLAN TO RECEIVE A VACCINE IN THE NEXT 21 DAYS? :NO DO YOU NEED ANY PRESCRIPTION? :NO DO YOU TAKE ANY IMMUNOSUPPRESSIVE MEDICATIONS? :NO IS THERE A CHANCE YOU COULD BE ? :NO ARE YOU BREAST FEEDING? :NO HISTORY OF PRESENT ILLNESS: PAIN THE PATIENT DESCRIBES THE PAIN... PATIENT IS AGREEABLE TO TELEMED VISIT VIA ZOOM. 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 PAIN IS LOCATED ACROSS LOW BACK AND RADIATES DOWN LEFT LEG.FINDS CURRENT CHRONIC PAIN MEDICATION EFFECTIVE AT REDUCING PAIN AND KEEPING HER COMFORTABLECURRENT PAIN MEDICINE REGIMEN:LYRICA 150MG TID,METHCARBOMOL 750MG TID,[id number] AT HS,,HYDROCODONE 10/325 Q8H PRN AND MORPHINE 60MG ER AND TIZANIDINE 6MG BID AND 4MG 2 TABLETS AT HS.DENIES SIDE EFFECTS. CURRENT MEDICATIONS TAKING SPIRONOLACTONE 100 MG TABLET 2 TABLET WITH FOOD ORALLY ONCE A DAY TAKING FUROSEMIDE 80 MG TABLET 1 1/2 TABLET ORALLY ONCE A DAY TAKING PROAIR HFA 108 (90 BASE) MCG/ACT AEROSOL SOLUTION 2 PUFFS NEEDED INHALATION QID PRN TAKING FEXOFENADINE HCL 60 MG CAPSULE ORALLY TAKING CHOLESTYRAMINE 4 GM PACKET 1 PACKET MIXED WITH WATER OR NON-CARBONATED DRINK ORALLY TWICE A DAY TAKING ANORO ELLIPTA 62.5-25 MCG/INH AEROSOL POWDER BREATH ACTIVATED 1 PUFF INHALATION ONCE A DAY TAKING AMITRIPTYLINE HCL 75 MG TABLET 1 TABLET NEEDED ORALLY FOR SPASMS AND PAIN QHS TAKING METHOCARBAMOL 750 MG TABLET 1 TABLET ORALLY EVERY 8 HRS NEEDED FOR SPASMS AND PAIN MDD3 TAKING TIZANIDINE HCL 6 MG CAPSULE 1 CAPSULE NEEDED ORALLY Q8H PRN DURING DAYTIME PRN TAKING TIZANIDINE HCL 4 MG TABLET 2 ORALLY BEFORE BEDTIME PRN TAKING LYRICA 150 MG CAPSULE 1 CAPSULE ORALLY Q8H MDD3 TAKING MORPHINE SULFATE ER 30 MG TABLET EXTENDED RELEASE 1 TABLET ORALLY DAILY MDD1 TAKING OXYCODONE HCL 15 MG TABLET 1 TABLET NEEDED ORALLY Q8H PRN MDD3 MEDICATION LIST REVIEWED AND RECONCILED WITH THE PATIENT PAST MEDICAL HISTORY SEIZURE MIGRAINE FIBROMYALGIA 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 AN LUNGS ALLERGIES KEFLEX: RASH - ALLERGY NYSTATIN: RASH - ALLERGY MYSOLINE: RASH - ALLERGY LATEX (FOR ALLERGY USE ONLY): RASH - ALLERGY BEE STINGS: ANAPHYLAXIS - ALLERGY ZOLOFT: RASH - ALLERGY SURGICAL HISTORY 10/1989 GALL BLADDER REMOVED 2006 BLADDER SLING 2008 FAMILY HISTORY FATHER: MOTHER: , DIAGNOSED WITH UNSPECIFIED HEART DISEASE, OTHER SPECIFIED CONDITIONS INFLUENCING HEALTH STATUS SOCIAL HISTORY GENERAL: TOBACCO USE ARE YOU A:CURRENT SMOKER ARE YOU INTERESTED IN QUITTING?THINKING ABOUT QUITTING USES NICOTROL INHALER COUNSELED THE PATIENT ON SMOKING CESSATION, EDUCATION [id number]/11/2020 HOW MANY CIGARETTES A DAY DO YOU SMOKE?11-20 HOW OFTEN DO YOU SMOKE CIGARETTES?EVERY DAY PATIENT COUNSELED ON THE DANGERS OF TOBACCO USE AND URGED TO QUIT:07/11/2019 SMOKING CESSATION INFORMATION GIVEN06/30/2017 LATEX QUESTIONNAIRE LATEX ALLERGY : HAVE YOU EVER DEVELOPED ANY TYPE OF REACTION AFTER HANDLING LATEX PRODUCTS SUCH RUBBER GLOVES, CONDOMS, DIAPHRAGMS, BALLOONS, SOCKS, OR UNDERWEAR?YES LATEX ALLERGY : HAVE YOU EVER DEVELOPED ANY TYPE OF REACTION DURING OR AFTER DENTAL APPOINTMENT, VAGINAL/RECTAL EXAMINATION, SURGICAL PROCEDURE, OR ANY OTHER EXPOSURE?NO - PLEASE INDICATE :RUBBER GLOVES DATE ASKED : 04/11/2019 LATEX RISK : HAVE YOU EVER HAD ANY DIFFICULTY BREATHING OR HIVES AFTER EATING OR HANDLING ANY FRUITS, OR VEGETABLES; SUCH KIWI, BANANAS, STONE FRUITS, OR CHESTNUTSNO LATEX RISK : DO YOU HAVE A PREVIOUS PERSONAL HISTORY OF MORE THAN NINE SURGERIES, SPINA BIFIDA, OR REPEATED CATHERIZATIONS? NO LATEX RISK : ARE YOU FREQUENTLY EXPOSED TO LATEX PRODUCTS IN YOUR OCCUPATION?NO ALCOHOL SCREENING DID YOU HAVE A DRINK CONTAINING ALCOHOL IN THE PAST YEAR?NO POINTS0 INTERPRETATIONNEGATIVE RECREATIONAL DRUG USE DRUG USE?NO CAFFEINE CAFFEINE USE?YES HOW OFTEN AND HOW MUCH? DAILY [employer] [id number] [employer] LANGUAGE LANGUAGES SPOKEN:[place]STR[place] EDUCATION LEVEL OF EDUCATION:NOT FINISHED HIGH SCHOOL LEARNING BARRIERS / SPECIAL NEEDS BARRIERS TO LEARNING?NO HEARING IMPAIRED?NO VISION IMPAIRED?NO COGNITIVELY IMPAIRED?NO READINESS TO LEARN?YES LEARNING PREFERENCES?NO SPECIAL DEVICES?NO DIRECTOR OF FOOD AND NUTRITION SERVICES NEEDED?NO OCCUPATION: DISABLED. DIET: NO ADDED SALT. EXERCISE: NONE. MARITAL STATUS: . OTHERS AT HOME: SPOUSE, CHILD. PAIN CLINIC PFS, CLERGY, PUBLIC HEALTH REFERRALS WAS THE PROVIDER NOTIFIED OF ANY PERTINENT INFO?YES HAS THE PATIENT BEEN EDUCATED REGARDING HIS/HER PLAN OF CARE?YES USES TENS UNIT DOESNT USE HEAT/COLD. ALONG WITH MEDS HAS THE PATIENT BEEN EDUCATED REGARDING PAIN, THE RISK FOR PAIN, THE IMPORTANCE OF EFFECTIVE PAIN MANAGEMENT, AND THE PAIN ASSESSMENT PROCESS?YES HOUSING: OWNS HOME. ADVANCE DIRECTIVE ADVANCE DIRECTIVE DISCUSSED WITH PATIENT:YES HCP - MATTIE ASH HOSPITALIZATION/MAJOR DIAGNOSTIC PROCEDURE SURGERIES REVIEW OF SYSTEMS CONSTITUTIONAL: ANY RECENT FEVER OR ILLNESS NO . CHILLS NO . GASTROENTEROLOGY: BOWEL INCONTINENCE NO . ANY NEW CHANGE IN BOWEL CONTROL? NO . ABDOMINAL PAIN NO . CONSTIPATION NO . GENITOURINARY: ANY NEW CHANGE IN BLADDER CONTROL? NO . IS THERE A CHANCE YOU COULD BE ? NO . URINARY INCONTINENCE NO . CARDIOLOGY: CHEST PRESSURE NO . CHEST PAIN NO . RESPIRATORY: COUGH NO . SHORTNESS OF BREATH NO . ASSESSMENTS PROTRUSION OF INTERVERTEBRAL DISC OF LUMBOSACRAL REGION - M51.27 (PRIMARY) CHRONIC PRESCRIPTION OPIATE USE - Z79.899 TREATMENT PROTRUSION OF INTERVERTEBRAL DISC OF LUMBOSACRAL REGION CONTINUE AMITRIPTYLINE HCL TABLET, 75 MG, 1 TABLET NEEDED, ORALLY FOR SPASMS AND PAIN, QHS CONTINUE METHOCARBAMOL TABLET, 750 MG, 1 TABLET, ORALLY, EVERY 8 HRS NEEDED FOR SPASMS AND PAIN MDD3 CONTINUE TIZANIDINE HCL CAPSULE, 6 MG, 1 CAPSULE NEEDED, ORALLY, Q8H PRN DURING DAYTIME PRN CONTINUE TIZANIDINE HCL TABLET, 4 MG, 2, ORALLY, BEFORE BEDTIME PRN CONTINUE LYRICA CAPSULE, 150 MG, 1 CAPSULE, ORALLY, Q8H MDD3 CONTINUE MORPHINE SULFATE ER TABLET EXTENDED RELEASE, 30 MG, 1 TABLET, ORALLY, DAILY MDD1 CONTINUE OXYCODONE HCL TABLET, 15 MG, 1 TABLET NEEDED, ORALLY, Q8H PRN MDD3 NOTES: PATIENT IS ADVISED TO CONTINUE CURRENT CHRONIC PAIN REGIMEN. PATIENT IS AT HIGH RISK TO COME INTO CLINIC DUE TO MULTIPLE COMORBIDITIES. A VIRTUAL VISIT WILL BE DONE IN 3 MONTHS FOR MEDICINE MANAGEMENT FOR CHRONIC LOW BACK PAIN RELATED TO A WORK INJURY. TOTAL TIME SPENT DURING TELEMED VISIT WAS APPROXIMATELY 12 MINUTES. OTHERS CLINICAL NOTES: PRE SCREENING CALL DONE 10/10/19 EM. PROCEDURES PN WORKMANS' COMP OPINION IN YOUR OPINION, WAS THE INCIDENT THAT THE PATIENT DESCRIBED THE COMPETENT MEDICAL CAUSE OF THIS INJURY/ILLNESS? YES ARE THE PATIENT'S COMPLAINTS CONSISTENT WITH HIS/HER HISTORY OF THE INJURY/ILLNESS? YES IS THE PATIENT'S HISTORY OF THE INJURY/ILLNESS CONSISTENT WITH YOUR OBJECTIVE FINDING? YES WHAT IS THE PERCENTAGE OF TEMPORARY IMPAIRMENT? MODERATE TO MARKED = 66.7% IS THE PATIENT WORKING? NO DOCTOR ON SITE: HOWARD VENEGAS MD DISPOSITION & COMMUNICATION FOLLOW UP 3 MONTH VIRTUAL VISIT/MED MANAGEMENT/WORKMEN'S COMP (REASON: LOW BACK PAIN/MED MANAGEMENTWORKMEN'S COMP) ELECTRONICALLY SIGNED BY HAYDEE HERRERA ON 10/14/2019 AT 12:02 PM EDT DISCLAIMER : THIS IS A VISIT SUMMARY EXTRACTED FROM THE [employer] CHART. IT IS NOT A COPY OF THE [employer] PROGRESS NOTE. BRADLEY
== END ==
LOC: M PAIN 09:00
PROVIDERS: ATTEND Nurse Practitioner Family
DX: M51.27 Other intervertebral disc displacement, lumbosacral region (principal); Z79.899 Other long term (current) drug therapy

== ENCOUNTER → 2020-01-21 | Outpatient (CLI) | payer OTHER | LOC: M PAIN 09:18 | PROVIDERS: ATTEND Nurse Practitioner Family | DX: M47.816 Spondylosis without myelopathy or radiculopathy, lumbar region (principal); Z79.891 Long term (current) use of opiate analgesic ==

== ENCOUNTER → 2020-03-31 | Outpatient (CLI) | payer OTHER ==
--- NOTE | 2020-04-02 02:49 | ECWPNPC ---
PATIENT NAME: DAGO ASH : 1965 GENDER: FEMALE VISIT DATE: 03/31/2020 DISCHARGE DATE: 03/31/20 0936 VISIT LOCKED DATE TIME: PHYSICIAN: SHIRLEY LILLY RESOURCE: SHIRLEY LILLY REASON FOR APPOINTMENT 1. W/C 3 MO FOLLOW UP HISTORY OF PRESENT ILLNESS GENERAL: THIS IS A FOLLOW-UP FOR CHRONIC PAIN RELATED TO A WORK INJURY WITH DATE OF INJURY: 04/22/1999. SUFFERS FROM CHRONIC LOW BACK PAIN. HISTORY OF LUMBAR SURGERY. COMPLAINING OF SHAKINESS WITH CYCLOBENZAPRINE. DISCUSSED ALTERNATIVES. REPORTS CURRENT CHRONIC PAIN MEDICATION OTHER THAN CYCLOBENZAPRINE EFFECTIVE AT REDUCING PAIN AND KEEPING HER COMFORTABLE. DENIES ADVERSE SIDE EFFECTS.-. FALL RISK SCREENING: SCREENING :ONE FALL WITH INJURY IN THE PAST YEAR RIGHT RIB FX PAIN SCREENING: PATIENT HAS A COMPLAINT OF ACUTE OR CHRONIC PAIN :YES LOCATION OF PAIN:NECK, LOW BACK, LEG(S) INTENSITY OF PAIN (SCALE OF 1 TO 10):8 WHAT DOES YOUR PAIN FEEL LIKE:THROBBING DURATION:CONTINOUS, CONSTANT PAIN IS INCREASED BY:ACTIVITIES PAIN IS DECREASED BY:OTHERS NOTHING TREATMENT/MEDICATIONS USED TO MANAGE PAIN:NONE LEVEL OF RELIEF FROM PAIN TREATMENTS IN THE PAST:0% PAIN HAS INTERFERED WITH THE FOLLOWING:BATHING/DRESSING, WALKING ABILITY, HOUSEWORK, SLEEP, TRANSPORTATION, TOILETING NURSING NOTE: -. PAIN CENTER INTAKE QUESTIONS: DO YOU HAVE A HISTORY OF MRSA? :NO DO YOU TAKE A BLOOD THINNERS? :NO DO YOU HAVE ANY BLEEDING DISORDERS? :NO ANY NEW NUMBNESS OR WEAKNESS IN YOUR LEGS OR ARMS? :YES RIGHT LEG ANY PACEMAKER,DEFIBRILLATOR, OR DORSAL COLUMN STIMULATOR? :NO DO YOU HAVE ANY RASHES OR OPEN SORES? :YES RASH TO RIGHT FOREARM ARE YOU ALLERGIC TO IV DYE? :NO ARE YOU DIABETIC? :NO ANY NEW PROBLEMS WITH YOUR MEDICATIONS? :YES CYCLOBENZAPRINE CAUSING SHAKING AND NERVOUS HAVE YOU RECEIVED A VACCINE IN THE PAST 30 DAYS? :NO DO YOU PLAN TO RECEIVE A VACCINE IN THE NEXT 21 DAYS? :NO DO YOU NEED ANY PRESCRIPTION? :YES MORPHINE ER, OXY DO YOU TAKE ANY IMMUNOSUPPRESSIVE MEDICATIONS? :NO IS THERE A CHANCE YOU COULD BE ? :NO ARE YOU BREAST FEEDING? :NO CURRENT MEDICATIONS TAKING SPIRONOLACTONE 100 MG TABLET 2 TABLET WITH FOOD ORALLY ONCE A DAY TAKING FUROSEMIDE 80 MG TABLET 1 1/2 TABLET ORALLY ONCE A DAY TAKING PROAIR HFA 108 (90 BASE) MCG/ACT AEROSOL SOLUTION 2 PUFFS NEEDED INHALATION QID PRN TAKING FEXOFENADINE HCL 60 MG CAPSULE ORALLY TAKING CHOLESTYRAMINE 4 GM PACKET 1 PACKET MIXED WITH WATER OR NON-CARBONATED DRINK ORALLY TWICE A DAY TAKING ANORO ELLIPTA 62.5-25 MCG/INH AEROSOL POWDER BREATH ACTIVATED 1 PUFF INHALATION ONCE A DAY TAKING AMITRIPTYLINE HCL 75 MG TABLET 1 TABLET NEEDED ORALLY FOR SPASMS AND PAIN QHS TAKING LYRICA 150 MG CAPSULE 1 CAPSULE ORALLY Q8H MDD3 TAKING OXYCODONE HCL 15 MG TABLET 1 TABLET NEEDED ORALLY Q8H PRN MDD3 TAKING MORPHINE SULFATE ER 30 MG TABLET EXTENDED RELEASE 1 TABLET ORALLY DAILY MDD1 TAKING CYCLOBENZAPRINE HCL 10 MG TABLET 1 TABLET AT BEDTIME NEEDED ORALLY Q 6 HRS PRN NOT-TAKING TIZANIDINE HCL 4 MG TABLET 2 ORALLY BEFORE BEDTIME PRN NOT-TAKING METHOCARBAMOL 750 MG TABLET 1 TABLET ORALLY EVERY 8 HRS NEEDED FOR SPASMS AND PAIN MDD3 NOT-TAKING TIZANIDINE HCL 6 MG CAPSULE 1 CAPSULE NEEDED ORALLY Q8H PRN DURING DAYTIME PRN MEDICATION LIST REVIEWED AND RECONCILED WITH THE PATIENT PAST MEDICAL HISTORY SEIZURE MIGRAINE FIBROMYALGIA 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 AN LUNGS ALLERGIES KEFLEX: RASH - ALLERGY NYSTATIN: RASH - ALLERGY MYSOLINE: RASH - ALLERGY LATEX (FOR ALLERGY USE ONLY): RASH - ALLERGY BEE STINGS: ANAPHYLAXIS - ALLERGY ZOLOFT: RASH - ALLERGY SURGICAL HISTORY 10/1989 GALL BLADDER REMOVED 2006 BLADDER SLING 2008 FAMILY HISTORY FATHER: MOTHER: , DIAGNOSED WITH UNSPECIFIED HEART DISEASE, OTHER SPECIFIED CONDITIONS INFLUENCING HEALTH STATUS SOCIAL HISTORY GENERAL: TOBACCO USE ARE YOU A:CURRENT SMOKER ARE YOU INTERESTED IN QUITTING?THINKING ABOUT QUITTING USES NICOTROL INHALER COUNSELED THE PATIENT ON SMOKING CESSATION, EDUCATION [id number]/01/2020 HOW MANY CIGARETTES A DAY DO YOU SMOKE?11-20 HOW OFTEN DO YOU SMOKE CIGARETTES?EVERY DAY PATIENT COUNSELED ON THE DANGERS OF TOBACCO USE AND URGED TO QUIT:07/11/2019 SMOKING CESSATION INFORMATION GIVEN06/30/2017 LATEX QUESTIONNAIRE LATEX ALLERGY : HAVE YOU EVER DEVELOPED ANY TYPE OF REACTION AFTER HANDLING LATEX PRODUCTS SUCH RUBBER GLOVES, CONDOMS, DIAPHRAGMS, BALLOONS, SOCKS, OR UNDERWEAR?YES LATEX ALLERGY : HAVE YOU EVER DEVELOPED ANY TYPE OF REACTION DURING OR AFTER DENTAL APPOINTMENT, VAGINAL/RECTAL EXAMINATION, SURGICAL PROCEDURE, OR ANY OTHER EXPOSURE?NO - PLEASE INDICATE :RUBBER GLOVES DATE ASKED : 04/11/2019 LATEX RISK : HAVE YOU EVER HAD ANY DIFFICULTY BREATHING OR HIVES AFTER EATING OR HANDLING ANY FRUITS, OR VEGETABLES; SUCH KIWI, BANANAS, STONE FRUITS, OR CHESTNUTSNO LATEX RISK : DO YOU HAVE A PREVIOUS PERSONAL HISTORY OF MORE THAN NINE SURGERIES, SPINA BIFIDA, OR REPEATED CATHERIZATIONS? NO LATEX RISK : ARE YOU FREQUENTLY EXPOSED TO LATEX PRODUCTS IN YOUR OCCUPATION?NO ALCOHOL SCREENING DID YOU HAVE A DRINK CONTAINING ALCOHOL IN THE PAST YEAR?NO POINTS0 INTERPRETATIONNEGATIVE RECREATIONAL DRUG USE DRUG USE?NO CAFFEINE CAFFEINE USE?YES HOW OFTEN AND HOW MUCH? DAILY [employer] [id number] L[employer] LANGUAGES SPOKEN:[place] EDUCATION LEVEL OF EDUCATION:NOT FINISHED HIGH SCHOOL LEARNING BARRIERS / SPECIAL NEEDS BARRIERS TO LEARNING?NO HEARING IMPAIRED?NO VISION IMPAIRED?NO COGNITIVELY IMPAIRED?NO READINESS TO LEARN?YES LEARNING PREFERENCES?NO SPECIAL DEVICES?NO MAP MOUNTER NEEDED?NO OCCUPATION: DISABLED. DIET: NO ADDED SALT. EXERCISE: NONE. MARITAL STATUS: . OTHERS AT HOME: SPOUSE, CHILD. PAIN CLINIC PFS, CLERGY, PUBLIC HEALTH REFERRALS WAS THE PROVIDER NOTIFIED OF ANY PERTINENT INFO?YES HAS THE PATIENT BEEN EDUCATED REGARDING HIS/HER PLAN OF CARE?YES USES TENS UNIT DOESNT USE HEAT/COLD. ALONG WITH MEDS HAS THE PATIENT BEEN EDUCATED REGARDING PAIN, THE RISK FOR PAIN, THE IMPORTANCE OF EFFECTIVE PAIN MANAGEMENT, AND THE PAIN ASSESSMENT PROCESS?YES HOUSING: OWNS HOME. ADVANCE DIRECTIVE ADVANCE DIRECTIVE DISCUSSED WITH PATIENT:YES HCP - MATTIE ASH HOSPITALIZATION/MAJOR DIAGNOSTIC PROCEDURE SURGERIES REVIEW OF SYSTEMS CONSTITUTIONAL: ANY RECENT FEVER NO . CHILLS NO . WEIGHT CHANGE OF UNKNOWN REASONS NO . GASTROENTEROLOGY: NEW UNEXPLAINABLE CHANGES IN BOWEL CONTROL NO . CONSTIPATION NO . GENITOURINARY: ANY NEW CHANGE IN BLADDER CONTROL? NO . NEUROLOGY: NEW ONSET DIZZINESS OR NEUROLOGICAL CHANGES NOT MENTIONED NO . NEW NUMBNESS OR PAIN PATTERNS NOT MENTIONED AND PERTINENT TO TODAY'S VISIT NO . CARDIOLOGY: NEW CHEST PRESSURE NO . NEW CHEST PAIN NO . RESPIRATORY: UNEXPLAINABLE COUGH NO . NEW SHORTNESS OF BREATH NO . VITAL SIGNS WT 198.2 LBS, HT 63 IN, BMI 35.11 INDEX, BP 124/56 MM HG, HR 89 /MIN, RR 18 /MIN, TEMP 96.3 F, OXYGEN SAT % 98%, SAFE IN ENV? (Y/N) Y, NA INITIALS AW 0854, REVIEWED BY: EM. EXAMINATION GENERAL EXAMINATION: GENERALAWAKE,ALERT ,PLEAASANT . PSYCHAFFECT NORMAL . LUNGS:LUNG MOYER ARE CLEAR TO AUSCULTATION BILATERALLY. GOOD MOVEMENT OF AIR . HEART:S1, S2 IN A REGULAR RATE AND RHYTHM. NO SIGNIFICANT MURMURS, RUBS OR GALLOPS NOTED . ASSESSMENTS PROTRUSION OF INTERVERTEBRAL DISC OF LUMBOSACRAL REGION - M51.27 (PRIMARY) CHRONIC PRESCRIPTION OPIATE USE - Z79.891 TREATMENT PROTRUSION OF INTERVERTEBRAL DISC OF LUMBOSACRAL REGION CONTINUE AMITRIPTYLINE HCL TABLET, 75 MG, 1 TABLET NEEDED, ORALLY FOR SPASMS AND PAIN, QHS CONTINUE LYRICA CAPSULE, 150 MG, 1 CAPSULE, ORALLY, Q8H MDD3 REFILL OXYCODONE HCL TABLET, 15 MG, 1 TABLET NEEDED, ORALLY, Q8H PRN MDD3, 30 DAYS, 90, REFILLS 0 REFILL MORPHINE SULFATE ER TABLET EXTENDED RELEASE, 30 MG, 1 TABLET, ORALLY, DAILY MDD1, 30 DAYS, 30, REFILLS 0 STOP CYCLOBENZAPRINE HCL TABLET, 10 MG, 1 TABLET AT BEDTIME NEEDED, ORALLY, Q 6 HRS PRN START TIZANIDINE HCL TABLET, 4 MG, 1 TABLET NEEDED, ORALLY, 1 PO Q8H PRN, 30 DAYS, 90, REFILLS 2 NOTES: ISTOP REGISTRY REVIEWED AND DEMONSTRATES COMPLLIANCE. BRINGS IN MEDICATIONS WHICH IS APPROPRIATE FOR WHAT WAS DISPENSED. RECENT URINE TOXICOLOGY REVIEWED. NO UNAUTHORIZED MEDICATIONS. NO ILLICIT SUBSTANCES AND PRESCRIBED MEDICATIONS WERE PRESENT. [facility] NARCOTIC AGREEMENT WAS REVIEWED AND SIGNED TODAY BY THE PATIENT. SEE ATTACHED DOCUMENT FOR FULL DETAILS; SPECIFIC ISSUES WERE REVIEWED: 1) KEEP PAIN MEDS IN THEIR ORIGINAL BOTTLES AND ANY WEEKLY PLANNERS ARE TO BE BROUGHT TO THE PAIN CENTER AT EVERY VISIT. 2) THE PATIENT IS NOT TO INCREASE DOSING OR TIMING OF THEIR PAIN MEDICATION WITHOUT SPECIFIC DIRECTION OF THEIR PAIN CENTERPROVIDER (NOT ER OR OTHER PROVIDERS). 3) ALL PAIN MEDS ARE TO BE KEPT SECURED, IN A LOCKED BOX. 4) NO PAIN MEDS ARE TO BE SHARED WITH ANY OTHER PERSON FOR ANY REASON. 5) NO PAIN MEDS MAY BE TAKEN FROM ANY FRIENDS OR RELATIVES FOR ANY REASON 6) NO MEDS OR SUBSTANCES WHICH ARE NOT LEGAL ARE TO BE USED- NO MARIJUANA, NO COCAINE, AMPHETAMINES, HEROIN, OR OTHERS ARE EVER TO BE USED. 7)URINE TESTING IS DONE TO ACCOUNT FOR MEDS AND SUBSTANCES BEING TAKEN AND WILL BE DONE RANDOMLY. , RISKS OF NARCOTIC/OPIOD MEDICATIONS INCLUDES BUT IS NOT LIMITED TO RISK OF DEPENDANCE/DEVELOPMENT OF ADDICTION, MOOD DISTURBANCE AND DEPRESSION, OSTEOPOROSIS, HORMONAL AND LABIDAL CHANGES, RESPIRATORY DEPRESSION AND . PATIENT IS ADVISED NOT TO DRIVE OR DRINK ALCOHOL WHILE ON THESE MEDICATIONS. PROCEDURES PN WORKMANS' COMP OPINION IN YOUR OPINION, WAS THE INCIDENT THAT THE PATIENT DESCRIBED THE COMPETENT MEDICAL CAUSE OF THIS INJURY/ILLNESS? YES ARE THE PATIENT'S COMPLAINTS CONSISTENT WITH HIS/HER HISTORY OF THE INJURY/ILLNESS? YES IS THE PATIENT'S HISTORY OF THE INJURY/ILLNESS CONSISTENT WITH YOUR OBJECTIVE FINDING? YES WHAT IS THE PERCENTAGE OF TEMPORARY IMPAIRMENT? MODERATE TO MARKED = 66.7% IS THE PATIENT WORKING? NO DOCTOR ON SITE: HOWARD VENEGAS MD PROCEDURE CODES FA211 ESTABILISHED PATIENT [facility] CHARGE DISPOSITION & COMMUNICATION FOLLOW UP 3 MONTHS (REASON: W/C MED MGMNT/LBP/UTOX) ELECTRONICALLY SIGNED BY HAYDEE HERRERA ON 04/01/2020 AT 11:57 AM EST DISCLAIMER : THIS IS A VISIT SUMMARY EXTRACTED FROM THE [employer] CHART. IT IS NOT A COPY OF THE [employer] PROGRESS NOTE. BRADLEY
== END ==
LOC: M PAIN 09:00
PROVIDERS: ATTEND Nurse Practitioner Family
DX: M51.27 Other intervertebral disc displacement, lumbosacral region (principal); G89.29 Other chronic pain; G43.909 Migraine, unspecified, not intractable, without status migrainosus; M79.7 Fibromyalgia; F17.210 Nicotine dependence, cigarettes, uncomplicated; Z88.1 Allergy status to other antibiotic agents; Z88.8 Allergy status to other drugs, medicaments and biological substances; Z91.030 Bee allergy status; Z91.040 Latex allergy status; Z79.51 Long term (current) use of inhaled steroids; Z79.891 Long term (current) use of opiate analgesic; Z79.899 Other long term (current) drug therapy

== ENCOUNTER → 2020-06-29 | Outpatient (CLI) | payer OTHER ==
--- NOTE | 2020-06-30 07:33 | ECWPNPC ---
PATIENT NAME: DAGO ASH : 1965 GENDER: FEMALE VISIT DATE: 06/29/2020 DISCHARGE DATE: 06/29/20 0937 VISIT LOCKED DATE TIME: PHYSICIAN: SHIRLEY LILLY RESOURCE: SHIRLEY LILLY REASON FOR APPOINTMENT 1. MED MGMNT/LOW BACK/UTOX HISTORY OF PRESENT ILLNESS DEPRESSION SCREENING: PHQ-2 (2015 EDITION) LITTLE INTEREST OR PLEASURE IN DOING THINGS?NOT AT ALL FEELING DOWN, DEPRESSED, OR HOPELESS?NOT AT ALL TOTAL SCORE0 GENERAL: - THIS IS A FOLLOW-UP FOR CHRONIC PAIN RELATED TO A WORK INJURY WITH DATE OF INJURY: 04/22/1999. SUFFERS FROM CHRONIC LOW BACK PAIN. HISTORY OF LUMBAR SURGERY. REPORTS CURRENT CHRONIC PAIN MEDICATION EFFECTIVE AT REDUCING PAIN AND KEEPING HER COMFORTABLE. DENIES ADVERSE SIDE EFFECTS.-. FALL RISK SCREENING: SCREENING :TWO OR MORE FALLS WITH INJURY IN THE PAST YEAR PAIN SCREENING: PATIENT HAS A COMPLAINT OF ACUTE OR CHRONIC PAIN :YES LOCATION OF PAIN:LOW BACK INTENSITY OF PAIN (SCALE OF 1 TO 10):7 WHAT DOES YOUR PAIN FEEL LIKE:ACHING, BURNING, CONTINOUS, SHARP, STABBING DURATION:CONTINOUS, CONSTANT, ALL DAY PAIN IS INCREASED BY:ACTIVITIES PAIN IS DECREASED BY:USE OF PAIN MEDICATIONS NURSING NOTE: -. PAIN CENTER INTAKE QUESTIONS: DO YOU HAVE A HISTORY OF MRSA? :NO DO YOU TAKE A BLOOD THINNERS? :NO DO YOU HAVE ANY BLEEDING DISORDERS? :NO ANY NEW NUMBNESS OR WEAKNESS IN YOUR LEGS OR ARMS? :NO ANY PACEMAKER,DEFIBRILLATOR, OR DORSAL COLUMN STIMULATOR? :NO DO YOU HAVE ANY RASHES OR OPEN SORES? :NO ARE YOU ALLERGIC TO IV DYE? :NO ARE YOU DIABETIC? :NO ANY NEW PROBLEMS WITH YOUR MEDICATIONS? :NO HAVE YOU RECEIVED A VACCINE IN THE PAST 30 DAYS? :NO DO YOU PLAN TO RECEIVE A VACCINE IN THE NEXT 21 DAYS? :NO DO YOU NEED ANY PRESCRIPTION? :YES MORPHINE ER, OXY, LYRICA, TIZANIDINE DO YOU TAKE ANY IMMUNOSUPPRESSIVE MEDICATIONS? :NO IS THERE A CHANCE YOU COULD BE ? :NO ARE YOU BREAST FEEDING? :NO CURRENT MEDICATIONS TAKING SPIRONOLACTONE 100 MG TABLET 2 TABLET WITH FOOD ORALLY 200MG ONCE A DAY TAKING FUROSEMIDE 80 MG TABLET 1 1/2 TABLET ORALLY ONCE A DAY TAKING PROAIR HFA 108 (90 BASE) MCG/ACT AEROSOL SOLUTION 2 PUFFS NEEDED INHALATION QID PRN TAKING FEXOFENADINE HCL 60 MG CAPSULE ORALLY TAKING CHOLESTYRAMINE 4 GM PACKET 1 PACKET MIXED WITH WATER OR NON-CARBONATED DRINK ORALLY TWICE A DAY TAKING ANORO ELLIPTA 62.5-25 MCG/INH AEROSOL POWDER BREATH ACTIVATED 1 PUFF INHALATION ONCE A DAY TAKING TIZANIDINE HCL 4 MG TABLET 1 TABLET NEEDED ORALLY 1 PO Q8H PRN TAKING OXYCODONE HCL 15 MG TABLET 1 TABLET NEEDED ORALLY Q8H PRN MDD3 TAKING MORPHINE SULFATE ER 30 MG TABLET EXTENDED RELEASE 1 TABLET ORALLY DAILY MDD1 TAKING AMITRIPTYLINE HCL 75 MG TABLET 1 TABLET NEEDED ORALLY FOR SPASMS AND PAIN QHS TAKING LYRICA 150 MG CAPSULE 1 CAPSULE ORALLY Q8H MDD3 NOT-TAKING TIZANIDINE HCL 4 MG TABLET 2 ORALLY BEFORE BEDTIME PRN NOT-TAKING METHOCARBAMOL 750 MG TABLET 1 TABLET ORALLY EVERY 8 HRS NEEDED FOR SPASMS AND PAIN MDD3 NOT-TAKING TIZANIDINE HCL 6 MG CAPSULE 1 CAPSULE NEEDED ORALLY Q8H PRN DURING DAYTIME PRN MEDICATION LIST REVIEWED AND RECONCILED WITH THE PATIENT PAST MEDICAL HISTORY SEIZURE MIGRAINE FIBROMYALGIA 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 AN LUNGS BROKEN RIB ALLERGIES KEFLEX: RASH - ALLERGY NYSTATIN: RASH - ALLERGY MYSOLINE: RASH - ALLERGY LATEX (FOR ALLERGY USE ONLY): RASH - ALLERGY BEE STINGS: ANAPHYLAXIS - ALLERGY ZOLOFT: RASH - ALLERGY SURGICAL HISTORY 10/1989 GALL BLADDER REMOVED 2006 BLADDER SLING 2008 BROKE RIBS 01/2020 SOCIAL HISTORY GENERAL: TOBACCO USE ARE YOU A:CURRENT SMOKER ARE YOU INTERESTED IN QUITTING?THINKING ABOUT QUITTING USES NICOTROL INHALER COUNSELED THE PATIENT ON SMOKING CESSATION, EDUCATION [id number]/01/2021 HOW MANY CIGARETTES A DAY DO YOU SMOKE?11-20 HOW OFTEN DO YOU SMOKE CIGARETTES?EVERY DAY PATIENT COUNSELED ON THE DANGERS OF TOBACCO USE AND URGED TO QUIT:07/11/2019 SMOKING CESSATION INFORMATION GIVEN06/30/2017 LATEX QUESTIONNAIRE LATEX ALLERGY : HAVE YOU EVER DEVELOPED ANY TYPE OF REACTION AFTER HANDLING LATEX PRODUCTS SUCH RUBBER GLOVES, CONDOMS, DIAPHRAGMS, BALLOONS, SOCKS, OR UNDERWEAR?YES - PLEASE INDICATE :RUBBER GLOVES LATEX ALLERGY : HAVE YOU EVER DEVELOPED ANY TYPE OF REACTION DURING OR AFTER DENTAL APPOINTMENT, VAGINAL/RECTAL EXAMINATION, SURGICAL PROCEDURE, OR ANY OTHER EXPOSURE?NO LATEX RISK : HAVE YOU EVER HAD ANY DIFFICULTY BREATHING OR HIVES AFTER EATING OR HANDLING ANY FRUITS, OR VEGETABLES; SUCH KIWI, BANANAS, STONE FRUITS, OR CHESTNUTSNO LATEX RISK : DO YOU HAVE A PREVIOUS PERSONAL HISTORY OF MORE THAN NINE SURGERIES, SPINA BIFIDA, OR REPEATED CATHERIZATIONS? NO LATEX RISK : ARE YOU FREQUENTLY EXPOSED TO LATEX PRODUCTS IN YOUR OCCUPATION?NO DATE ASKED : 06/29/2020 ALCOHOL USE: NO. ALCOHOL SCREENING DID YOU HAVE A DRINK CONTAINING ALCOHOL IN THE PAST YEAR?NO POINTS0 INTERPRETATIONNEGATIVE RECREATIONAL DRUG USE DRUG USE?NO CAFFEINE CAFFEINE USE?YES HOW OFTEN AND HOW MUCH? DAILY PENTECOSTALISM [id number] NONDENOMINATIONAL LANGUAGE LANGUAGES SPOKEN:MALIAN EDUCATION LEVEL OF EDUCATION:NOT FINISHED HIGH SCHOOL LEARNING BARRIERS / SPECIAL NEEDS CHANGE FROM LAST VISIT?YES BARRIERS TO LEARNING?NO HEARING IMPAIRED?NO VISION IMPAIRED?NO COGNITIVELY IMPAIRED?NO READINESS TO LEARN?YES LEARNING PREFERENCES?NO LEARNING CAPABILITIES PRESENT?YES EMOTIONAL BARRIERS?NO SPECIAL DEVICES?YES :WALKER, WHEELCHAIR NEEDED LINE FISHER NEEDED?NO OCCUPATION: DISABLED. DIET: NO ADDED SALT. EXERCISE: NONE. MARITAL STATUS: . OTHERS AT HOME: SPOUSE, CHILD. - WAS THE PROVIDER NOTIFIED OF ANY PERTINENT INFO?YES HAS THE PATIENT BEEN EDUCATED REGARDING HIS/HER PLAN OF CARE?YES USES TENS UNIT DOESNT USE HEAT/COLD. ALONG WITH MEDS HAS THE PATIENT BEEN EDUCATED REGARDING PAIN, THE RISK FOR PAIN, THE IMPORTANCE OF EFFECTIVE PAIN MANAGEMENT, AND THE PAIN ASSESSMENT PROCESS?YES HOUSING: OWNS HOME. ADVANCE DIRECTIVE ADVANCE DIRECTIVE DISCUSSED WITH PATIENT:YES HCP - MATTIE ASH HOSPITALIZATION/MAJOR DIAGNOSTIC PROCEDURE SURGERIES REVIEW OF SYSTEMS CONSTITUTIONAL: ANY RECENT FEVER NO . CHILLS NO . WEIGHT CHANGE OF UNKNOWN REASONS NO . GASTROENTEROLOGY: NEW UNEXPLAINABLE CHANGES IN BOWEL CONTROL NO . CONSTIPATION NO . GENITOURINARY: ANY NEW CHANGE IN BLADDER CONTROL? NO . NEUROLOGY: NEW ONSET DIZZINESS OR NEUROLOGICAL CHANGES NOT MENTIONED NO . NEW NUMBNESS OR PAIN PATTERNS NOT MENTIONED AND PERTINENT TO TODAY'S VISIT NO . CARDIOLOGY: NEW CHEST PRESSURE NO . PATIENT DENIES NO . RESPIRATORY: UNEXPLAINABLE COUGH NO . NEW SHORTNESS OF BREATH NO . VITAL SIGNS WT 206 LBS, HT 63 IN, BMI 36.49 INDEX, BP 111/56 MM HG, HR 84 /MIN, RR 18 /MIN, TEMP 97.6 F, OXYGEN SAT % 99%, SAFE IN ENV? (Y/N) YEST.CARRILLO PINEDA. EXAMINATION GENERAL EXAMINATION: GENERALAWAKE,ALERT ,PLEAASANT . PSYCHAFFECT NORMAL . LUNGS:LUNG MOYER ARE CLEAR TO AUSCULTATION BILATERALLY. GOOD MOVEMENT OF AIR . HEART:S1, S2 IN A REGULAR RATE AND RHYTHM. NO SIGNIFICANT MURMURS, RUBS OR GALLOPS NOTED . ASSESSMENTS LOW BACK PAIN - M54.5 (PRIMARY) CHRONIC PRESCRIPTION OPIATE USE - Z79.891 TREATMENT LOW BACK PAIN REFILL TIZANIDINE HCL TABLET, 4 MG, 1 TABLET NEEDED, ORALLY, 1 PO Q8H PRN, 30 DAYS, 90, REFILLS 2 REFILL OXYCODONE HCL TABLET, 15 MG, 1 TABLET NEEDED, ORALLY, Q8H PRN MDD3, 30 DAYS, 90, REFILLS 0 REFILL MORPHINE SULFATE ER TABLET EXTENDED RELEASE, 30 MG, 1 TABLET, ORALLY, DAILY MDD1, 30 DAYS, 30, REFILLS 0 CONTINUE AMITRIPTYLINE HCL TABLET, 75 MG, 1 TABLET NEEDED, ORALLY FOR SPASMS AND PAIN, QHS REFILL LYRICA CAPSULE, 150 MG, 1 CAPSULE, ORALLY, Q8H MDD3, 30 DAYS, 90, REFILLS 5 NOTES: ISTOP REGISTRY REVIEWED AND DEMONSTRATES COMPLLIANCE. BRINGS IN MEDICATIONS WHICH IS APPROPRIATE FOR WHAT WAS DISPENSED. RECENT URINE TOXICOLOGY REVIEWED. NO UNAUTHORIZED MEDICATIONS. NO ILLICIT SUBSTANCES AND PRESCRIBED MEDICATIONS WERE PRESENT. , RISKS OF NARCOTIC/OPIOD MEDICATIONS INCLUDES BUT IS NOT LIMITED TO RISK OF DEPENDANCE/DEVELOPMENT OF ADDICTION, MOOD DISTURBANCE AND DEPRESSION, OSTEOPOROSIS, HORMONAL AND LABIDAL CHANGES, RESPIRATORY DEPRESSION AND . PATIENT IS ADVISED NOT TO DRIVE OR DRINK ALCOHOL WHILE ON THESE MEDICATIONS. CHRONIC PRESCRIPTION OPIATE USE LAB: URINE TEST GROUP SOFYA VIZCAINO 06/29/2020 9:21:43 AM > LAST DOSE: OXYCODONE 06/29/2020, LYRICA 06/28/2020 PROCEDURES PN WORKMANS' COMP OPINION IN YOUR OPINION, WAS THE INCIDENT THAT THE PATIENT DESCRIBED THE COMPETENT MEDICAL CAUSE OF THIS INJURY/ILLNESS? YES ARE THE PATIENT'S COMPLAINTS CONSISTENT WITH HIS/HER HISTORY OF THE INJURY/ILLNESS? YES IS THE PATIENT'S HISTORY OF THE INJURY/ILLNESS CONSISTENT WITH YOUR OBJECTIVE FINDING? YES WHAT IS THE PERCENTAGE OF TEMPORARY IMPAIRMENT? MODERATE TO MARKED = 66.7% IS THE PATIENT WORKING? NO DOCTOR ON SITE: HOWARD VENEGAS MD PROCEDURE CODES FA211 ESTABILISHED PATIENT [facility] CHARGE DISPOSITION & COMMUNICATION FOLLOW UP 3 MONTHS (REASON: REVIEW URINE TOX/MED MGMNT) ELECTRONICALLY SIGNED BY HAYDEE HERRERA ON 06/29/2020 AT 10:03 AM EST DISCLAIMER : THIS IS A VISIT SUMMARY EXTRACTED FROM THE [employer] CHART. IT IS NOT A COPY OF THE [employer] PROGRESS NOTE. BRADLEY
== END ==
LOC: M PAIN 09:00
PROVIDERS: ATTEND Nurse Practitioner Family
DX: M54.5 Low back pain (principal); G89.29 Other chronic pain; G43.909 Migraine, unspecified, not intractable, without status migrainosus; M79.7 Fibromyalgia; F17.210 Nicotine dependence, cigarettes, uncomplicated; Z88.1 Allergy status to other antibiotic agents; Z88.8 Allergy status to other drugs, medicaments and biological substances; Z91.030 Bee allergy status; Z91.040 Latex allergy status; Z79.51 Long term (current) use of inhaled steroids; Z79.891 Long term (current) use of opiate analgesic; Z79.899 Other long term (current) drug therapy

== ENCOUNTER → 2020-10-08 | Outpatient (CLI) | payer OTHER ==
--- NOTE | 2020-10-11 23:04 | ECWPNPC ---
PATIENT NAME: DAGO ASH : 1965 GENDER: FEMALE VISIT DATE: 10/08/2020 DISCHARGE DATE: 10/08/20950 VISIT LOCKED DATE TIME: PHYSICIAN: SHIRLEY LILLY RESOURCE: SHIRLEY LILLY REASON FOR APPOINTMENT 1. REVIEW URINE TOX/MED MGMNT HISTORY OF PRESENT ILLNESS GENERAL: - - THIS IS A FOLLOW-UP FOR CHRONIC PAIN RELATED TO A WORK INJURY WITH DATE OF INJURY: 04/22/1999. SUFFERS FROM CHRONIC LOW BACK PAIN. HISTORY OF LUMBAR SURGERY. REPORTS CURRENT CHRONIC PAIN MEDICATION EFFECTIVE AT REDUCING PAIN AND KEEPING HER COMFORTABLE. DENIES ADVERSE SIDE EFFECTS.-. FALL RISK SCREENING: SCREENING :NO. PAIN SCREENING: PATIENT HAS A COMPLAINT OF ACUTE OR CHRONIC PAIN :YES LOCATION OF PAIN:LOW BACK, LEG(S) INTENSITY OF PAIN (SCALE OF 1 TO 10):5 WHAT DOES YOUR PAIN FEEL LIKE:CONTINOUS, BURNING, SHARP NURSING NOTE: -. PAIN CENTER INTAKE QUESTIONS: DO YOU HAVE A HISTORY OF MRSA? :NO DO YOU TAKE A BLOOD THINNERS? :NO DO YOU HAVE ANY BLEEDING DISORDERS? :NO ANY NEW NUMBNESS OR WEAKNESS IN YOUR LEGS OR ARMS? :NO ANY PACEMAKER,DEFIBRILLATOR, OR DORSAL COLUMN STIMULATOR? :NO DO YOU HAVE ANY RASHES OR OPEN SORES? :NO ARE YOU ALLERGIC TO IV DYE? :NO ARE YOU DIABETIC? :NO ANY NEW PROBLEMS WITH YOUR MEDICATIONS? :NO HAVE YOU RECEIVED A VACCINE IN THE PAST 30 DAYS? :NO DO YOU PLAN TO RECEIVE A VACCINE IN THE NEXT 21 DAYS? :NO WE DID DISCUSS THE BENEFITS OF OBTAINING THE VACCINE DO YOU NEED ANY PRESCRIPTION? :YES MORPHINE ER, OXY, LYRICA, TIZANIDINE DO YOU TAKE ANY IMMUNOSUPPRESSIVE MEDICATIONS? :NO IS THERE A CHANCE YOU COULD BE ? :NO ARE YOU BREAST FEEDING? :NO CURRENT MEDICATIONS TAKING SPIRONOLACTONE 100 MG TABLET 2 TABLET WITH FOOD ORALLY 200MG ONCE A DAY TAKING FUROSEMIDE 80 MG TABLET 1 1/2 TABLET ORALLY ONCE A DAY TAKING PROAIR HFA 108 (90 BASE) MCG/ACT AEROSOL SOLUTION 2 PUFFS NEEDED INHALATION QID PRN TAKING FEXOFENADINE HCL 60 MG CAPSULE ORALLY TAKING CHOLESTYRAMINE 4 GM PACKET 1 PACKET MIXED WITH WATER OR NON-CARBONATED DRINK ORALLY TWICE A DAY TAKING ANORO ELLIPTA 62.5-25 MCG/INH AEROSOL POWDER BREATH ACTIVATED 1 PUFF INHALATION ONCE A DAY TAKING AMITRIPTYLINE HCL 75 MG TABLET 1 TABLET NEEDED ORALLY FOR SPASMS AND PAIN QHS TAKING LYRICA 150 MG CAPSULE 1 CAPSULE ORALLY Q8H MDD3 TAKING TIZANIDINE HCL 4 MG TABLET 1 TABLET NEEDED ORALLY 1 PO Q8H PRN TAKING MORPHINE SULFATE ER 30 MG TABLET EXTENDED RELEASE 1 TABLET ORALLY DAILY MDD1 TAKING OXYCODONE HCL 15 MG TABLET 1 TABLET NEEDED ORALLY Q8H PRN MDD3 NOT-TAKING TIZANIDINE HCL 4 MG TABLET 2 ORALLY BEFORE BEDTIME PRN NOT-TAKING METHOCARBAMOL 750 MG TABLET 1 TABLET ORALLY EVERY 8 HRS NEEDED FOR SPASMS AND PAIN MDD3 NOT-TAKING TIZANIDINE HCL 6 MG CAPSULE 1 CAPSULE NEEDED ORALLY Q8H PRN DURING DAYTIME PRN MEDICATION LIST REVIEWED AND RECONCILED WITH THE PATIENT PAST MEDICAL HISTORY SEIZURE MIGRAINE FIBROMYALGIA 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 AN LUNGS BROKEN RIB ALLERGIES KEFLEX: RASH - ALLERGY NYSTATIN: RASH - ALLERGY MYSOLINE: RASH - ALLERGY LATEX (FOR ALLERGY USE ONLY): RASH - ALLERGY BEE STINGS: ANAPHYLAXIS - ALLERGY ZOLOFT: RASH - ALLERGY SURGICAL HISTORY 10/1989 GALL BLADDER REMOVED 2006 BLADDER SLING 2009 BROKE RIBS 01/2020 SOCIAL HISTORY GENERAL: TOBACCO USE ARE YOU A:CURRENT SMOKER ARE YOU INTERESTED IN QUITTING?THINKING ABOUT QUITTING USES NICOTROL INHALER COUNSELED THE PATIENT ON SMOKING CESSATION, EDUCATION [id number]/01/2021 HOW MANY CIGARETTES A DAY DO YOU SMOKE?11-20 HOW OFTEN DO YOU SMOKE CIGARETTES?EVERY DAY PATIENT COUNSELED ON THE DANGERS OF TOBACCO USE AND URGED TO QUIT:07/11/2019 SMOKING CESSATION INFORMATION GIVEN06/30/2017 LATEX QUESTIONNAIRE LATEX ALLERGY : HAVE YOU EVER DEVELOPED ANY TYPE OF REACTION AFTER HANDLING LATEX PRODUCTS SUCH RUBBER GLOVES, CONDOMS, DIAPHRAGMS, BALLOONS, SOCKS, OR UNDERWEAR?YES LATEX ALLERGY : HAVE YOU EVER DEVELOPED ANY TYPE OF REACTION DURING OR AFTER DENTAL APPOINTMENT, VAGINAL/RECTAL EXAMINATION, SURGICAL PROCEDURE, OR ANY OTHER EXPOSURE?NO - PLEASE INDICATE :RUBBER GLOVES DATE ASKED : 06/29/2020 LATEX RISK : HAVE YOU EVER HAD ANY DIFFICULTY BREATHING OR HIVES AFTER EATING OR HANDLING ANY FRUITS, OR VEGETABLES; SUCH KIWI, BANANAS, STONE FRUITS, OR CHESTNUTSNO LATEX RISK : DO YOU HAVE A PREVIOUS PERSONAL HISTORY OF MORE THAN NINE SURGERIES, SPINA BIFIDA, OR REPEATED CATHERIZATIONS? NO LATEX RISK : ARE YOU FREQUENTLY EXPOSED TO LATEX PRODUCTS IN YOUR OCCUPATION?NO ALCOHOL USE: NO. ALCOHOL SCREENING DID YOU HAVE A DRINK CONTAINING ALCOHOL IN THE PAST YEAR?NO POINTS0 INTERPRETATIONNEGATIVE RECREATIONAL DRUG USE DRUG USE?NO CAFFEINE CAFFEINE USE?YES HOW OFTEN AND HOW MUCH? 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 DIET: NO ADDED SALT. EXERCISE: NONE. MARITAL STATUS: . OTHERS AT HOME: SPOUSE, CHILD. - WAS THE PROVIDER NOTIFIED OF ANY PERTINENT INFO?YES HAS THE PATIENT BEEN EDUCATED REGARDING HIS/HER PLAN OF CARE?YES USES TENS UNIT DOESNT USE HEAT/COLD. ALONG WITH MEDS HAS THE PATIENT BEEN EDUCATED REGARDING PAIN, THE RISK FOR PAIN, THE IMPORTANCE OF EFFECTIVE PAIN MANAGEMENT, AND THE PAIN ASSESSMENT PROCESS?YES HOUSING: OWNS HOME. ADVANCE DIRECTIVE ADVANCE DIRECTIVE DISCUSSED WITH PATIENT:YES HCP - MATTIE ASH HOSPITALIZATION/MAJOR DIAGNOSTIC PROCEDURE SURGERIES REVIEW OF SYSTEMS CONSTITUTIONAL: ANY RECENT FEVER NO . CHILLS NO . WEIGHT CHANGE OF UNKNOWN REASONS NO . GASTROENTEROLOGY: NEW UNEXPLAINABLE CHANGES IN BOWEL CONTROL NO . CONSTIPATION NO . GENITOURINARY: ANY NEW CHANGE IN BLADDER CONTROL? NO . NEUROLOGY: NEW ONSET DIZZINESS OR NEUROLOGICAL CHANGES NOT MENTIONED NO . NEW NUMBNESS OR PAIN PATTERNS NOT MENTIONED AND PERTINENT TO TODAY'S VISIT NO . CARDIOLOGY: NEW CHEST PRESSURE NO . PATIENT DENIES NO . RESPIRATORY: UNEXPLAINABLE COUGH NO . NEW SHORTNESS OF BREATH NO . VITAL SIGNS WT 176.0 LBS, HT 63 IN, BMI 31.17 INDEX, BP 114/52 MM HG, HR 89 /MIN, RR 18 /MIN, TEMP 97.9 F, OXYGEN SAT % 97%, SAFE IN ENV? (Y/N) YES, NA INITIALS AW 0914, REVIEWED BY: KG. EXAMINATION GENERAL EXAMINATION: GENERALAWAKE,ALERT ,PLEAASANT . PSYCHAFFECT NORMAL . LUNGS:LUNG MOYER ARE CLEAR TO AUSCULTATION BILATERALLY. GOOD MOVEMENT OF AIR . HEART:S1, S2 IN A REGULAR RATE AND RHYTHM. NO SIGNIFICANT MURMURS, RUBS OR GALLOPS NOTED . ASSESSMENTS LOW BACK PAIN - M54.5 (PRIMARY) CHRONIC PRESCRIPTION OPIATE USE - Z79.899 TREATMENT LOW BACK PAIN CONTINUE AMITRIPTYLINE HCL TABLET, 75 MG, 1 TABLET NEEDED, ORALLY FOR SPASMS AND PAIN, QHS CONTINUE LYRICA CAPSULE, 150 MG, 1 CAPSULE, ORALLY, Q8H MDD3 REFILL TIZANIDINE HCL TABLET, 4 MG, 1 TABLET NEEDED, ORALLY, 1 PO Q8H PRN, 30 DAYS, 90, REFILLS 2 REFILL MORPHINE SULFATE ER TABLET EXTENDED RELEASE, 30 MG, 1 TABLET, ORALLY, DAILY MDD1, 30 DAYS, 30, REFILLS 0 REFILL OXYCODONE HCL TABLET, 15 MG, 1 TABLET NEEDED, ORALLY, Q8H PRN MDD3, 30 DAYS, 90, REFILLS 0 NOTES: ISTOP REGISTRY REVIEWED AND DEMONSTRATES COMPLLIANCE. BRINGS IN MEDICATIONS WHICH IS APPROPRIATE FOR WHAT WAS DISPENSED. RECENT URINE TOXICOLOGY REVIEWED. NO UNAUTHORIZED MEDICATIONS. NO ILLICIT SUBSTANCES AND PRESCRIBED MEDICATIONS WERE PRESENT. PROCEDURES PN WORKMANS' COMP OPINION IN YOUR OPINION, WAS THE INCIDENT THAT THE PATIENT DESCRIBED THE COMPETENT MEDICAL CAUSE OF THIS INJURY/ILLNESS? YES ARE THE PATIENT'S COMPLAINTS CONSISTENT WITH HIS/HER HISTORY OF THE INJURY/ILLNESS? YES IS THE PATIENT'S HISTORY OF THE INJURY/ILLNESS CONSISTENT WITH YOUR OBJECTIVE FINDING? YES WHAT IS THE PERCENTAGE OF TEMPORARY IMPAIRMENT? MODERATE TO MARKED = 66.7% IS THE PATIENT WORKING? NO DOCTOR ON SITE: HOWARD VENEGAS MD PROCEDURE CODES FA211 ESTABILISHED PATIENT [facility] FACILITY CHARGE DISPOSITION & COMMUNICATION FOLLOW UP 3 MONTHS (REASON: MED MGMNT/UTOX) ELECTRONICALLY SIGNED BY HAYDEE HERRERA ON 10/11/2020 AT 08:14 PM EDT DISCLAIMER : THIS IS A VISIT SUMMARY EXTRACTED FROM THE [employer] CHART. IT IS NOT A COPY OF THE [employer] PROGRESS NOTE. BRADLEY
== END ==
LOC: M PAIN 09:15
PROVIDERS: ATTEND Nurse Practitioner Family
DX: M54.5 Low back pain (principal); G43.909 Migraine, unspecified, not intractable, without status migrainosus; M79.7 Fibromyalgia; K74.60 Unspecified cirrhosis of liver; F17.210 Nicotine dependence, cigarettes, uncomplicated; Z79.899 Other long term (current) drug therapy; Z79.891 Long term (current) use of opiate analgesic; Z88.1 Allergy status to other antibiotic agents; Z88.8 Allergy status to other drugs, medicaments and biological substances; Z91.040 Latex allergy status; Z91.030 Bee allergy status

== ENCOUNTER → 2021-01-08 | Outpatient (CLI) | payer OTHER | LOC: M PAIN 09:00 | PROVIDERS: ATTEND Anesthesiology | DX: M51.16 Intervertebral disc disorders with radiculopathy, lumbar region (principal); G89.29 Other chronic pain; G43.909 Migraine, unspecified, not intractable, without status migrainosus; M79.7 Fibromyalgia; F17.210 Nicotine dependence, cigarettes, uncomplicated; Z88.1 Allergy status to other antibiotic agents; Z88.8 Allergy status to other drugs, medicaments and biological substances; Z91.030 Bee allergy status; Z91.040 Latex allergy status; Z79.51 Long term (current) use of inhaled steroids; Z79.891 Long term (current) use of opiate analgesic; Z79.899 Other long term (current) drug therapy ==

== ENCOUNTER → 2021-03-11 | Outpatient (CLI) | payer OTHER | LOC: M PAIN 09:30 | PROVIDERS: ATTEND Anesthesiology | DX: M51.16 Intervertebral disc disorders with radiculopathy, lumbar region (principal); G89.29 Other chronic pain; R53.1 Weakness; G43.909 Migraine, unspecified, not intractable, without status migrainosus; M79.7 Fibromyalgia; F17.210 Nicotine dependence, cigarettes, uncomplicated; Z88.1 Allergy status to other antibiotic agents; Z88.8 Allergy status to other drugs, medicaments and biological substances; Z91.030 Bee allergy status; Z91.040 Latex allergy status; Z79.51 Long term (current) use of inhaled steroids; Z79.891 Long term (current) use of opiate analgesic; Z79.899 Other long term (current) drug therapy ==

== ENCOUNTER → 2021-03-19 | Outpatient (CLI) | payer OTHER | LOC: M PAIN 15:30 | PROVIDERS: ATTEND Anesthesiology | DX: M51.16 Intervertebral disc disorders with radiculopathy, lumbar region (principal); G89.29 Other chronic pain; G43.909 Migraine, unspecified, not intractable, without status migrainosus; M79.7 Fibromyalgia; F17.210 Nicotine dependence, cigarettes, uncomplicated; Z88.1 Allergy status to other antibiotic agents; Z88.8 Allergy status to other drugs, medicaments and biological substances; Z91.030 Bee allergy status; Z91.040 Latex allergy status; Z79.51 Long term (current) use of inhaled steroids; Z79.891 Long term (current) use of opiate analgesic; Z79.899 Other long term (current) drug therapy ==

== ENCOUNTER → 2021-04-21 | Outpatient (CLI) | payer OTHER | LOC: M PAIN 15:00 | PROVIDERS: ATTEND Nurse Practitioner Family | DX: M51.16 Intervertebral disc disorders with radiculopathy, lumbar region (principal); G89.29 Other chronic pain; G43.909 Migraine, unspecified, not intractable, without status migrainosus; M79.7 Fibromyalgia; F17.210 Nicotine dependence, cigarettes, uncomplicated; Z88.1 Allergy status to other antibiotic agents; Z88.8 Allergy status to other drugs, medicaments and biological substances; Z91.030 Bee allergy status; Z91.040 Latex allergy status; Z79.51 Long term (current) use of inhaled steroids; Z79.891 Long term (current) use of opiate analgesic; Z79.899 Other long term (current) drug therapy ==

== ENCOUNTER → 2021-07-14 | Outpatient (CLI) | payer OTHER | LOC: M PAIN 10:00 | PROVIDERS: ATTEND Nurse Practitioner Family | DX: M51.16 Intervertebral disc disorders with radiculopathy, lumbar region (principal); G89.29 Other chronic pain; G43.909 Migraine, unspecified, not intractable, without status migrainosus; M79.7 Fibromyalgia; F17.210 Nicotine dependence, cigarettes, uncomplicated; Z88.1 Allergy status to other antibiotic agents; Z88.8 Allergy status to other drugs, medicaments and biological substances; Z91.030 Bee allergy status; Z91.040 Latex allergy status; Z79.51 Long term (current) use of inhaled steroids; Z79.891 Long term (current) use of opiate analgesic; Z79.899 Other long term (current) drug therapy ==

== ENCOUNTER → 2021-10-14 | Outpatient (CLI) | payer OTHER ==
[~2021-10-14] MED LIST changes: -MORP1CAP PO; +MORP1CAP15 PO
== END ==
LOC: M PAIN 09:30
PROVIDERS: ATTEND Anesthesiology
DX: M51.16 Intervertebral disc disorders with radiculopathy, lumbar region (principal); G89.29 Other chronic pain; G43.909 Migraine, unspecified, not intractable, without status migrainosus; M79.7 Fibromyalgia; F17.210 Nicotine dependence, cigarettes, uncomplicated; Z88.1 Allergy status to other antibiotic agents; Z88.8 Allergy status to other drugs, medicaments and biological substances; Z91.030 Bee allergy status; Z91.040 Latex allergy status; Z79.51 Long term (current) use of inhaled steroids; Z79.891 Long term (current) use of opiate analgesic; Z79.899 Other long term (current) drug therapy